=== PATIENT | female | born 1955 | race Caucasian/White ===

== ENCOUNTER → 2020-05-19 13:31 | Outpatient (BNVA) | payer MEDICARE, MEDICAID, SELFPAY | PROVIDERS: PCP Internal Medicine; Referring Provider Internal Medicine; Visit Provider Physician Assistant | DX: Z47.1 Aftercare following joint replacement surgery (principal); Z96.612 Presence of left artificial shoulder joint; Z48.02 Encounter for removal of sutures | CPT/HCPCS: 99212 ==

== ENCOUNTER 2020-06-12 12:04 | Outpatient (REF) | payer MEDICARE, MEDICAID, SELFPAY ==
[2020-06-12 12:44] LABS: MANUAL DIFF FLAG NO
[2020-06-12 12:47] LABS: Basophils Absolute Auto 0.1 X10*3/uL (0.0-0.2); Basophils Percent Auto 0.6 % (0-2); Eosinophils Absolute Auto 0.2 X10*3/uL (0.0-0.4); Eosinophils Percent Auto 2.8 % (0-4); Hematocrit 43.7 % (37-47); Hemoglobin 14.5 g/dl (12.0-16.0); Imm Gran Abs Auto 0.02 X10*3/uL (0.00-0.03); Imm Gran Pct Auto 0.3 % (0.0-0.4); Lymphocytes Absolute Auto 2.4 X10*3/uL (1.2-4.9); Lymphocytes Percent Auto 30.8 % (20-40); Mean Corpuscular HGB Conc 33.2 g/dl (31.0-35.0); Mean Corpuscular Hemoglobin 28.9 pg (27.0-33.0); Mean Corpuscular Volume 87.2 fL (80-98); Mean Platelet Volume 10.8 fL (9.4-12.3); Monocytes Absolute Auto 0.6 X10*3/uL (0.1-1.2); Neutrophils Absolute Auto 4.5 X10*3/uL (2.0-8.3); Neutrophils Percent Auto 57.5 % (45-73); Platelet Count 304 X10*3/uL (160-400); Red Blood Count 5.01 X10*6/uL (4.20-5.50); Red Cell Distribution Width 13.1 % (11.0-16.0); White Blood Count 7.9 X10*3/uL (4.8-10.8)
[2020-06-12 14:03] LABS: Anion Gap 13 (12-20); Blood Urea Nitrogen 15 mg/dL (9-16); Calcium 8.9 mg/dL (8.4-10.2); Carbon Dioxide 29 mmol/L (22-29); Chloride 102 mmol/L (96-108); Cholesterol 221 mg/dL; Estimated Glomerular Filt Rate > 60; Glucose Fasting 118 mg/dL (60-99); HDL Cholesterol 34 mg/dL; LDL Cholesterol Calculated 146 mg/dl; Potassium 4.5 mmol/l (3.3-5.1); Sodium 139 mmol/L (135-145); Triglycerides 208 mg/dL
== END 2020-06-12 12:05 | disposition home or self-care (01) ==
LOC: HO.LAB 12:04
PROVIDERS: Absent Provider Internal Medicine; PCP Internal Medicine; Visit Provider Nurse Practitioner Family
DX: E78.00 Pure hypercholesterolemia, unspecified (principal); Z96.612 Presence of left artificial shoulder joint; E78.5 Hyperlipidemia, unspecified
CPT/HCPCS: 36415; 80048; 80061; 85025

== ENCOUNTER 2020-06-22 11:18 | Outpatient (REF) | payer MEDICARE, MEDICAID, SELFPAY ==
--- NOTE | 2020-06-22 11:35 | XR_ITS ---
EXAMINATION: XR SHOULDER, LEFT CLINICAL INFORMATION: Left shoulder arthroplasty COMPARISON: Left shoulder x-rays TECHNIQUE: 2 views of the left shoulder FINDINGS: Postop changes related to left shoulder arthroplasty. Components in usual position. No periprosthetic fracture or suspicious area of lucency. Mild arthrosis of the left shoulder XR/XR shoulder LT min 2V IMPRESSION: Left total shoulder arthroplasty without complication
== END 2020-06-22 11:19 | disposition home or self-care (01) ==
LOC: HO.HOSX 11:18
PROVIDERS: PCP Internal Medicine; Referring Provider Internal Medicine; Visit Provider Orthopaedic Surgery
DX: Z96.612 Presence of left artificial shoulder joint (principal)
CPT/HCPCS: 73030; 99212

== ENCOUNTER → 2020-08-07 13:08 | Outpatient (BNVA) | payer MEDICARE, MEDICAID, SELFPAY | PROVIDERS: PCP Internal Medicine; Visit Provider Orthopaedic Surgery | DX: Z76.89 Persons encountering health services in other specified circumstances (principal) | CPT/HCPCS: 99212 ==

== ENCOUNTER 2020-08-07 14:08 | Outpatient (REF) | payer MEDICARE, MEDICAID, SELFPAY | END 2020-08-07 14:09 | disposition home or self-care (01) | LOC: HO.LAB 14:08 | PROVIDERS: Visit Provider Internal Medicine | DX: Z20.828 Contact with and (suspected) exposure to other viral communicable diseases (principal) | CPT/HCPCS: 99212; C9803; U0003 ==

== ENCOUNTER 2020-10-24 16:00 | Outpatient (RCR) | payer MEDICARE, OTHER, MEDICAID, SELFPAY ==
--- NOTE | 2020-06-05 16:45 | MHC.PT.EP ---
[facility] [place] Office [place] Office [place] Office [address] Tiffanie Banks [address] [phone] F: [phone] F: [phone] F: [phone] F: [phone] Physical Therapy Plan of Care Date of Evaluation: 06/05/20 Date of Surgery: 05/03/20 Diagnosis: presence of left artificial shoulder joint. Assessment: This is a 65 y/o female referred to skilled PT services s/p left total shoulder replacement by Dr. Mohr on 05/03/20. On her evaluation date today, she is 5 weeks and 6 days post op. Assessment reveals decreased PROM, AAROM, and AROM of the left shoulder joint, impaired strength, postural deficits, impaired GHJ rhythm, tissue tension, and pain. Related functional limitations include: difficulty dressing, reaching, lifting, carrying, cooking, and performing house cleaning tasks. Pt will highly benefit from skilled PT services 2x/week for 6-8 weeks in order to reduce impairments, improve function, and implement a comprehensive HEP. Frequency and Duration: The patient will be seen 2x/week for 8 weeks, minimum of 38 minutes. Short Term Goals: -In 3 weeks, Pt to improve PROM of the left shoulder joint in all impaired directions by at least 20 degrees. -In 4 weeks, Pt to demonstrate the ability at minimum 50% normal AROM of the L shoulder joint. [address] Goals: -In 6 weeks, Pt to demonstrate the ability to reach for and retrieve a weighted object from a shelf above eye level. -In 8 weeks, Pt will demonstrate I w/ HEP. -In 8 weeks, Pt to improve SPADI score by at least 13 points. Treatment Plan: Modalities to reduce pain, spasms and effusion. Manual therapy to restore motion and function. Therapeutic exercise to improve strength and flexibility. Neuromuscular re-education for posture and balance. Therapeutic activities to return to functional activities of daily living. Please sign and return to therapist. Thank you for your referral.
--- NOTE | 2020-10-24 17:04 | MHC.PT.DC ---
[facility] [place] Office [place] Office [place] Office [address] Tiffanie Banks [address] [phone] F: [phone] F: [phone] F: [phone] F: [phone] Physical Therapy Discharge Report Diagnosis: presence of left artificial shoulder joint. Date of Surgery: 05/03/20 Date of Evaluation: 06/05/20 Date of Discharge: Treatments to Date: 24 Cancellations to Date: 0 No Shows to Date: 0 Discharge Status: Achieved Goals Improved Function Independent with HEP Discharge Summary: Pt has improved and demonstrates I w/ HEP s/p L total shoulder replacement. SPADI: 62/130. Although, she reports no specific functional limitations @ home w/ any of her activities of daily living. Electronically signed by: Lia Peoples PT, DPT Please sign and return to therapist. Thank you for your referral.
== END 2020-10-24 17:05 | disposition other institution (70) ==
LOC: HO.PT 16:00
PROVIDERS: Visit Provider Physician Assistant
DX: Z47.1 Aftercare following joint replacement surgery (principal); Z96.612 Presence of left artificial shoulder joint
CPT/HCPCS: 97014; 97110; 97140; 97161; 97530

== ENCOUNTER → 2020-12-11 13:41 | Outpatient (BNVA) | payer OTHER, SELFPAY | PROVIDERS: Visit Provider Orthopaedic Surgery | DX: Z96.612 Presence of left artificial shoulder joint (principal) | CPT/HCPCS: 99212 ==

== ENCOUNTER → 2020-12-29 14:19 | Outpatient (BNVA) | payer OTHER, SELFPAY | PROVIDERS: PCP Internal Medicine; Visit Provider Nurse Practitioner Family | DX: M47.27 Other spondylosis with radiculopathy, lumbosacral region (principal) | CPT/HCPCS: 99202 ==

== ENCOUNTER 2021-01-26 14:29 | Outpatient (REF) | payer OTHER, SELFPAY ==
--- NOTE | ~2021-01-26 | MR_ITS ---
EXAMINATION: MR LUMBAR SPINE WITHOUT CONTRAST CLINICAL INFORMATION: Other spondylosis with radiculopathy, lumbosacral region. COMPARISON: None TECHNIQUE: MRI of the lumbar spine was obtained using routine sequences without contrast. FINDINGS: The lumbar vertebral bodies maintain normal height. There is minimal retrolisthesis of L3 on L4 with associated severe disc height loss. Additional severe disc height loss is seen at L5-S1. Edema seen at the anterior aspect of L2 and at the opposing endplates of L2-L3. The distal spinal cord appears normal. The conus medullaris terminates normally at the L1 level. The visualized paraspinal muscles and intra-abdominal and pelvic contents are within normal limits. SPINAL LEVELS: L1-L2: Disc bulging with left foraminal protrusion resulting in mild mass effect on the extraforaminal left L1 nerve root segment. No spinal canal stenosis. L2-L3: Disc bulging with epidural lipomatosis and facet arthropathy resulting in mild spinal canal stenosis and left subarticular stenosis with mild compression of the traversing left L3 nerve root. Left and right foraminal protrusions with resultant compression on the extraforaminal left L2 nerve root segment. L3-L4: Disc bulging, epidural lipomatosis, ligamentum flavum infolding, and facet arthropathy resulting in thecal sac compression with effacement of the subarachnoid space. Right foraminal protrusion results in moderate compression of the exiting right L3 nerve root. Left neural foramen is mildly narrowed but without foraminal nerve root compression. L4-L5: Disc bulging with left foraminal extrusion resulting in significant compression of the exiting left L4 nerve root. Diffuse disc bulging with extension to the right neural foramen results in mild compression of the exiting right L4 nerve root. Disc bulging combination with ligamentum flavum infolding, facet arthropathy, and epidural lipomatosis results in severe spinal canal stenosis with thecal sac compression and asymmetric left subarticular stenosis with compression of the traversing left L5 nerve root. L5-S1: Disc bulging with severe facet arthropathy and central protrusion results in mild to moderate spinal canal stenosis with bilateral traversing L5 nerve root compression. Moderate neural foraminal stenosis with compression of the exiting left more than right L5 nerve roots. MR/MR lumbar spine wo con IMPRESSION: Multilevel degenerative spondylotic changes resulting in varying degrees of spinal canal, neural foraminal, and subarticular stenosis. At L3-L4 there is thecal sac compression with effacement of the subarachnoid space partly related to epidural lipomatosis. Moderate compression of the exiting right L3 nerve root. At L4-L5 there is severe spinal canal stenosis with thecal sac compression and traversing L5 nerve root compression. Left foraminal extrusion results in significant compression of the exiting left L4 nerve root. Additional foraminal and subarticular nerve root compression is detailed above.
== END 2021-01-26 14:30 | disposition home or self-care (01) ==
LOC: HO.MRI 14:29
PROVIDERS: Visit Provider Anesthesiology
DX: M47.27 Other spondylosis with radiculopathy, lumbosacral region (principal)
CPT/HCPCS: 72148

== ENCOUNTER 2021-03-20 11:07 | Outpatient (REF) | payer OTHER, SELFPAY ==
[2021-03-20 12:27] LABS: Alanine Aminotransferase 25 U/L (0-31); Albumin Level 3.9 g/dL (3.5-5.0); Alkaline Phosphatase 112 U/L (39-117); Anion Gap 11 (12-20); Aspartate Amino Transferase 19 U/L (5-31); Bilirubin Total 0.3 mg/dL (0.0-1.0); Blood Urea Nitrogen 15 mg/dL (9-16); Calcium 9.4 mg/dL (8.4-10.2); Carbon Dioxide 29 mmol/L (22-29); Chloride 104 mmol/L (96-108); Estimated Glomerular Filt Rate > 60; Glucose Fasting 139 mg/dL (60-99); Potassium 4.4 mmol/L (3.3-5.1); Sodium 140 mmol/L (135-145); Total Protein 7.4 g/dL (6.5-8.0)
[2021-03-20 12:29] LABS: TSH reflex Free T4 1.96 uIU/mL (0.32-4.0)
== END 2021-03-20 11:08 | disposition home or self-care (01) ==
LOC: HO.LAB 11:07
PROVIDERS: PCP Internal Medicine; Visit Provider Nurse Practitioner Family
DX: Z13.1 Encounter for screening for diabetes mellitus (principal); E03.9 Hypothyroidism, unspecified
CPT/HCPCS: 36415; 80053; 84443

== ENCOUNTER 2021-04-30 13:02 | Outpatient (REF) | payer OTHER, SELFPAY ==
[2021-05-01 04:50] LABS: CT PCR NOT DETECTED (Not Detect.); NG PCR NOT DETECTED (Not Detect.)
[2021-05-01 08:55] LABS: BV Int Neg Control Negative (Negative); BV Int Pos Control Positive (Positive)
[2021-05-03 17:43] LABS: HPV mRNA E6/E7 rflx Not Detected (Not Detected)
== END 2021-04-30 13:03 | disposition home or self-care (01) ==
LOC: HO.LAB 13:02
PROVIDERS: PCP Internal Medicine; Visit Provider Advanced Practice Midwife
DX: Z01.411 Encounter for gynecological examination (general) (routine) with abnormal findings (principal); Z11.51 Encounter for screening for human papillomavirus (HPV); Z11.3 Encounter for screening for infections with a predominantly sexual mode of transmission; Z20.2 Contact with and (suspected) exposure to infections with a predominantly sexual mode of transmission; N89.8 Other specified noninflammatory disorders of vagina
CPT/HCPCS: 87480; 87491; 87510; 87591; 87624; 87660; 88142

== ENCOUNTER 2021-05-10 12:17 | Outpatient (REF) | payer OTHER, SELFPAY ==
--- NOTE | ~2021-05-10 | XR_ITS ---
EXAMINATION: XR SHOULDER, LEFT CLINICAL INFORMATION: Pain. COMPARISON: Left shoulder radiographs dated 06/22/2020. TECHNIQUE: AP internal rotation, AP external rotation, and axillary views of the left shoulder. FINDINGS: Left shoulder arthroplasty. No acute hardware or osseous fracture. No perihardware lucency to suggest loosening or infection. Adjacent surgical clips. No radiopaque foreign body. No abnormal soft tissue calcification. XR/XR shoulder LT min 2V IMPRESSION: Left shoulder arthroplasty without evidence of hardware complication.
== END 2021-05-10 12:18 | disposition home or self-care (01) ==
LOC: HO.HOSX 12:17
PROVIDERS: Visit Provider Orthopaedic Surgery
DX: Z47.1 Aftercare following joint replacement surgery (principal); Z96.612 Presence of left artificial shoulder joint
CPT/HCPCS: 73030; 99212

== ENCOUNTER 2021-06-05 12:55 | Outpatient (REF) | payer OTHER, SELFPAY ==
--- NOTE | ~2021-06-05 | MM_ITS ---
EXAMINATION: MM SCREENING DIGITAL BREAST TOMOSYNTHESIS, BILATERAL CLINICAL INFORMATION: Screening. Asymptomatic. The lifetime risk of breast cancer based on the Tyrer-Cuzick Model is 4.9%. COMPARISON: Mammography: None. TECHNIQUE: Digital breast tomosynthesis is performed in both the craniocaudal and mediolateral oblique views along with computer-aided detection (CAD). Synthesized 2D images are generated from the tomosynthesis. FINDINGS: There are scattered areas of fibroglandular density (ACR BI-RADS breast composition Category b). There are bilateral groupings of calcifications one of which within the inferior aspect of the right breast has been biopsied previously in [place] where old films are at this time. Some of the calcifications are coarse but others are indeterminate in nature and therefore spot magnification films of both breasts are recommended unless old films can be obtained. No suspicious dominant mass is identified. MM/MM tomosynthesis screening BI IMPRESSION: Multiplicity and bilaterality of indeterminate calcifications with no old studies available for comparison at this time. If old films can be obtained and compared that would be helpful. If previous studies are not available for comparison, then recommend callback for spot magnification views of both breasts. ASSESSMENT: BI-RADS 0: Incomplete - Need Additional Imaging Evaluation RECOMMENDATION: 1. Additional views of the bilateral breasts. 2. Targeted ultrasound if warranted after review of the additional views. 3. Radiology department staff will contact the patient for additional imaging. This patient's information was entered into a reminder system with a target due date for their next mammogram.
--- NOTE | ~2021-06-05 | MM_ITS ---
EXAMINATION: BONE DENSITOMETRY CLINICAL INDICATION: Asymptomatic menopausal state. COMPARISON: None (current study represents initial baseline exam). TECHNIQUE: Using a [employer] DXA System (software version: 13.1) manufactured by [employer], dual-energy x-ray absorptiometry was performed of the lumbar spine and left hip. The images are of good technical quality. Summary results are attached. FINDINGS: AP SPINE L1-L2 (excluding L3 and L4): The data of L1-L4 has been changed to exclude the L3 and L4 vertebral bodies, because degenerative changes at these levels may cause overestimation of lumbar spine density. BMD 1.165 g/cm2, Z-score 0.6, T-score 0.0, normal. LEFT FEMUR, NECK: BMD 0.673 g/cm2, Z-score -1.8, T-score -2.6, osteoporosis. LEFT FEMUR, TOTAL: BMD 0.833 g/cm2, Z-score -0.9, T-score -1.4, osteopenia. IDENTIFIED RISK FACTORS: Menopause, hysterectomy, bilateral oophorectomy. HISTORY OF FRACTURE: None listed. MEDICATIONS: Vitamin D. MM/XR DEXA axial skeleton IMPRESSION: 1. DIAGNOSIS: Osteoporosis based on the lowest T-score value of -2.6 in the femoral neck applying World Health Organization criteria. 2. 2. 10-YEAR FRACTURE RISK PREDICTION, FRAX: According to the guidelines, FRAX calculation should only be performed on patients in the osteopenia bone density category. Therefore, FRAX was not performed on this patient. 3. Treatment Recommendations: NOF guidelines recommend consideration for treatment in postmenopausal women and men age 50 and older presenting with the following: -A hip or vertebral (clinical or morphometric) fracture. -T-score less than or equal to -2.5 at the femoral neck or spine after appropriate evaluation to exclude secondary causes. -Low bone mass at the hip or spine and a 10-year fracture probability by FRAX of greater than or equal to 3% for hip fracture or greater than or equal to 20% for major osteoporotic fracture based on the [place] adapted WHO algorithm. 4. Other Recommendations: All treatment decisions require clinical judgment and consideration of individual patient factors, including patient preferences, comorbidities, previous drug use, risk factors not captured in the FRAX model (e.g. frailty, falls, vitamin D deficiency, increased bone turnover, interval significant decline in bone density) and possible under or overestimation of fracture risk by FRAX. Additional medical evaluation for secondary cause of low bone mineral density may be appropriate. FUTURE SCAN RECOMMENDATION: People with diagnosed cases of osteoporosis or at high risk for fracture should have regular bone mineral density tests. For patients eligible for Medicare, routine testing is allowed once every 2 years. The testing frequency can be increased to one year for patients who have rapidly progressing disease, those who are receiving or discontinuing medical therapy to restore bone mass, or have additional risk factors.
== END 2021-06-05 12:56 | disposition home or self-care (01) ==
LOC: HO.MAMMO 12:55
PROVIDERS: Visit Provider Nurse Practitioner Family
DX: Z12.31 Encounter for screening mammogram for malignant neoplasm of breast (principal); Z13.820 Encounter for screening for osteoporosis; M81.0 Age-related osteoporosis without current pathological fracture; Z78.0 Asymptomatic menopausal state; Z79.899 Other long term (current) drug therapy
CPT/HCPCS: 77063; 77067; 77080

== ENCOUNTER 2021-06-12 10:14 | Outpatient (REF) | payer OTHER, SELFPAY ==
--- NOTE | ~2021-06-12 | MM_ITS ---
EXAMINATION: MM DIAGNOSTIC DIGITAL MAMMOGRAPHY, BILATERAL CLINICAL INFORMATION: Recall from screening for bilateral calcifications of uncertain chronicity (prior outside mammography from [place] unavailable). Age 66. TC score 5%. No known family history breast cancer. COMPARISON: Mammography: 06/05/2021 (new baseline). TECHNIQUE: Digital mammography is performed in the following views: Magnification right CC, magnification right ML x2, magnification left CC x2, magnification left ML. FINDINGS: There are scattered areas of fibroglandular density (ACR BI-RADS breast composition Category b). There are similar appearing groups of bilateral calcifications which may be related to fibroadenomatous changes. Left breast has grouped coarse benign calcifications mid upper outer quadrant with some fine calcifications immediately anterior and posterior. There are also some benign relatively coarse calcifications mid medial left breast. Right breast has grouped relatively coarse calcifications mid 6:00 position. Biopsy clip marker present in this area. There are some other benign-appearing coarse calcifications in the anterior mid upper right breast. Results are provided to the patient and her daughter at time of visit, using an medical data analyst. The bilateral calcifications are probably benign and of uncertain chronicity. If prior outside mammography is able to be retrieved, we will be able to make comparison in an addendum report. Otherwise, management plan is for short interval six-month follow-up bilateral diagnostic mammography to include magnification views of both breasts. MM/MM added views BI IMPRESSION: Probable benign calcifications bilateral breasts, possibly fibroadenomatous changes, of unknown chronicity. ASSESSMENT: BI-RADS 3: Probably Benign RECOMMENDATION: Diagnostic bilateral mammography in 6 months. This patient's information was entered into a reminder system with a target due date for their next mammogram.
== END 2021-06-12 10:15 | disposition home or self-care (01) ==
LOC: HO.MAMMO 10:14
PROVIDERS: Visit Provider Internal Medicine
DX: R92.1 Mammographic calcification found on diagnostic imaging of breast (principal)
CPT/HCPCS: 77066

== ENCOUNTER 2021-07-22 14:49 | Emergency (ER) | payer OTHER, SELFPAY ==
[2021-07-22 14:57] VITALS: BP 155/71; BP 167/93; PULSE 89; PULSE 92; RESP 22; TEMP 36.9; O2SAT 97; O2SAT 98; BMI 40.6
--- NOTE | 2021-07-22 15:13 | ED.DIZZY ---
HPI - Dizziness General Chief Complaint: Dizziness <Jed Watkins MD - Last Filed: 07/22/21 16:19> Stated Complaint: cold and dizzy <Jed Watkins MD - Last Filed: 07/22/21 16:19> Time Seen by Provider: 07/22/21 15:12 <Jed Watkins MD - Last Filed: 07/22/21 16:19> Source: patient <Jed Watkins MD - Last Filed: 07/22/21 16:19> Mode of arrival: ambulatory <Jed Watkins MD - Last Filed: 07/22/21 16:19> Limitations: no limitations <Jed Watkins MD - Last Filed: 07/22/21 16:19> History of Present Illness HPI Narrative: 2 days of dizziness and palpitations. Patient feeling cold and nervous, has a lot of bleching. patient had lumbar surgery 07/04, she went to rehab for 4 days. patient feels more weak like when her sugar drops and she get nervous and shakey. <Jed Watkins MD - Last Filed: 07/22/21 16:19> MD elicited complaint: other (weakness) <Jed Watkins MD - Last Filed: 07/22/21 16:19> Onset (ago): day(s) <Jed Watkins MD - Last Filed: 07/22/21 16:19> Timing: sudden onset <Jed Watkins MD - Last Filed: 07/22/21 16:19> Severity: mild <Jed Watkins MD - Last Filed: 07/22/21 16:19> Description: other (weakness) <Jed Watkins MD - Last Filed: 07/22/21 16:19> Associated symptoms: palpatations <Jed Watkins MD - Last Filed: 07/22/21 16:19> Related Data Home Medications: Previous Rx's Medication Instructions Recorded cholecalciferol (vitamin D3) 25 25 mcg PO DAILY #90 cap 04/12/21 mcg (1,000 unit) capsule gabapentin 800 mg tablet 800 mg PO TID #90 tab 04/12/21 (Neurontin) simvastatin 10 mg tablet 10 mg PO DAILY #90 tab 04/12/21 metronidazole 500 mg tablet 500 mg PO BID 7 Days #14 tab 05/02/21 (Flagyl) levothyroxine 75 mcg tablet 75 mcg PO QAM #90 tab 07/14/21 lisinopril 20 mg tablet 20 mg PO DAILY #90 tab 07/14/21 <Jed Watkins MD - Last Filed: 07/22/21 16:19> Allergies/Adverse Reactions: Allergies Allergy/AdvReac Type Severity Reaction Status Date / Time No Known Allergies Allergy Verified 07/22/21 14:57 <Jed Watkins MD - Last Filed: 07/22/21 16:19> Review of Systems Constitutional: Constitutional: Reports no additional constitutional complaints <Jed Watkins MD - Last Filed: 07/22/21 16:19> Eyes: Eyes: Reports no additional eye complaints <Jed Watkins MD - Last Filed: 07/22/21 16:19> ENT: Denies dizziness <Jed Watkins MD - Last Filed: 07/22/21 16:19> Cardiovascular: Cardiovascular: Reports no additional cardiovascular complaints <Jed Watkins MD - Last Filed: 07/22/21 16:19> Respiratory: Respiratory: Reports as per HPI <Jed Watkins MD - Last Filed: 07/22/21 16:19> Gastrointestinal: Gastrointestinal: Reports no additional gastrointestinal complaints <Jed Watkins MD - Last Filed: 07/22/21 16:19> Genitourinary: Genitourinary: Reports no additional female genitourinary complaints <Jed Watkins MD - Last Filed: 07/22/21 16:19> Musculoskeletal: Musculoskeletal: Reports no additional musculoskeletal complaints <Jed Watkins MD - Last Filed: 07/22/21 16:19> Integumentary/Breasts: Skin/Breast: Denies rash <Jed Watkins MD - Last Filed: 07/22/21 16:19> Neurologic: Reports system reviewed and no additional complaints, except as documented, Denies dizziness and Denies Sensory deficit (Neuro) <Jed Watkins MD - Last Filed: 07/22/21 16:19> Psychiatric: Psychiatric: Denies anxiety <Jed Watkins MD - Last Filed: 07/22/21 16:19> [facility] Past Medical History Medical History: Medical History (Updated 07/23/21 @ 00:02 by Cecilio Oliveira) Eye exam, routine High cholesterol Hospital discharge follow-up Hypertension Hypothyroidism Obesity Post-menopausal Screening for breast cancer Screening for colon cancer Screening for diabetes mellitus <Jed Watkins MD - Last Filed: 07/22/21 16:19> Surgical History: Surgical History History of section History of colonoscopy History of hysterectomy History of 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 Mother No problems noted. Sister Glaucoma <Jed Watkins MD - Last Filed: 07/22/21 16:19> Social History Social History: Social History Housing: Apartment Alcohol intake: never Patient Tobacco Use Status: Never used Tobacco e-Cigarette/Vaping Use: Never Used Second Hand Smoke Exposure: No Advance Directives: No Advance Directives Information Provided: No service: No Current occupational status: retired Cognitive needs: No Hearing needs: No Vision needs: No <Jed Watkins MD - Last Filed: 07/22/21 16:19> Physical Exam Vital Signs: Vital Signs: Last Vital Signs Temp 98.4 F 07/22/21 14:57 Pulse 81 07/22/21 19:51 Resp 16 07/22/21 19:51 BP 150/76 H 07/22/21 19:51 Pulse Ox 99 07/22/21 18:00 BMI result Body Mass Index 40.6 <Jed Watkins MD - Last Filed: 07/22/21 16:19> Vital Signs: Last Vital Signs Temp 98.4 F 07/22/21 14:57 Pulse 81 07/22/21 19:51 Resp 16 07/22/21 19:51 BP 150/76 H 07/22/21 19:51 Pulse Ox 99 07/22/21 18:00 BMI result Body Mass Index 40.6 <Jose Gongora MD - Last Filed: 07/23/21 01:33> Neuro: Sensory Exam: No Sensory deficit (Neuro) <Jed Watkins MD - Last Filed: 07/22/21 16:19> Course Reevaluation(s) Reevaluation #1: patients first troponin came back high will have to obtain a 3 hour troponin <Jed Watkins MD - Last Filed: 07/22/21 16:19> Time: 16:19 <Jed Watkins MD - Last Filed: 07/22/21 16:19> MDM - Dizziness Lab Data Result diagrams: : 07/22/21 15:42 07/22/21 15:42 <Jed Watkins MD - Last Filed: 07/22/21 16:19> Labs: Lab Results 07/22/21 07/22/21 07/22/21 Range/Units 15:42 15:42 15:42 WBC 9.4 (4.8-10.8) X10*3/uL RBC 4.20 (4.20-5.50) X10*6/uL Hgb 12.0 (12.0-16.0) g/dl Hct 36.9 L (37.0-47.0) % MCV 87.9 (80.0-98.0) fL MCH 28.6 (27.0-33.0) pg MCHC 32.5 (31.0-35.0) g/dl RDW 14.1 (11.0-16.0) % Plt Count 454 H (160-400) X10*3/uL MPV 10.6 (9.4-12.3) fL Immature Gran % (Auto) 0.4 (0.0-0.4) % Neut % (Auto) 71.7 (45-73) % Lymph % (Auto) 17.9 L (20-40) % [place] % (Auto) 9.0 (2-11) % Eos % (Auto) 0.4 (0-4) % Baso % (Auto) 0.6 (0-2) % Lymph # (Auto) 1.7 (1.2-4.9) X10*3/uL [place] # (Auto) 0.9 (0.1-1.2) X10*3/uL Eos # (Auto) 0.0 (0.0-0.4) X10*3/uL Baso # (Auto) 0.1 (0.0-0.2) X10*3/uL Abs Immat Gran (auto) 0.04 H (0.00-0.03) X10*3/uL Absolute Neuts (auto) 6.7 (2.0-8.3) x10*3/uL Absolute Nucleated RBC 0.000 (0.0-0.012) X10*3/uL Nucleated RBC % (auto) 0.0 (0.0-0.2) /100WBC Sodium 137 (135-145) mmol/L Potassium 4.1 (3.3-5.1) mmol/L Chloride 102 (96-108) mmol/L Carbon Dioxide 25 (22-29) mmol/L Anion Gap 14 (12-20) BUN 14 (9-16) mg/dL Creatinine 0.72 (0.5-1.4) mg/dL Estim Creat Clear Calc 81.0 Estimated GFR > 60 Random Glucose 165 H (60-115) mg/dL Calcium 9.9 (8.4-10.2) mg/dL Troponin I High Sens 21.1 H (<3.5-17.0) ng/L Urine Color Urine Appearance Urine pH (5.0-8.0) Ur Specific [place] (1.005-1.025) Urine Protein (NEG-TRACE) MG/DL Urine Glucose (UA) (NEG) MG/DL Urine Ketones (NEG) MG/DL Urine Blood (NEG) Urine Nitrite (NEG) Ur Leukocyte Esterase (NEG) 07/22/21 07/22/21 Range/Units 15:43 18:04 WBC (4.8-10.8) X10*3/uL RBC (4.20-5.50) X10*6/uL Hgb (12.0-16.0) g/dl Hct (37.0-47.0) % MCV (80.0-98.0) fL MCH (27.0-33.0) pg MCHC (31.0-35.0) g/dl RDW (11.0-16.0) % Plt Count (160-400) X10*3/uL MPV (9.4-12.3) fL Immature Gran % (Auto) (0.0-0.4) % Neut % (Auto) (45-73) % Lymph % (Auto) (20-40) % [place] % (Auto) (2-11) % Eos % (Auto) (0-4) % Baso % (Auto) (0-2) % Lymph # (Auto) (1.2-4.9) X10*3/uL [place] # (Auto) (0.1-1.2) X10*3/uL Eos # (Auto) (0.0-0.4) X10*3/uL Baso # (Auto) (0.0-0.2) X10*3/uL Abs Immat Gran (auto) (0.00-0.03) X10*3/uL Absolute Neuts (auto) (2.0-8.3) x10*3/uL Absolute Nucleated RBC (0.0-0.012) X10*3/uL Nucleated RBC % (auto) (0.0-0.2) /100WBC Sodium (135-145) mmol/L Potassium (3.3-5.1) mmol/L Chloride (96-108) mmol/L Carbon Dioxide (22-29) mmol/L Anion Gap (12-20) BUN (9-16) mg/dL Creatinine (0.5-1.4) mg/dL Estim Creat Clear Calc Estimated GFR Random Glucose (60-115) mg/dL Calcium (8.4-10.2) mg/dL Troponin I High Sens 18.4 H (<3.5-17.0) ng/L Urine Color YELLOW Urine Appearance HAZY Urine pH 6.0 (5.0-8.0) Ur Specific [place] 1.025 (1.005-1.025) Urine Protein NEG (NEG-TRACE) MG/DL Urine Glucose (UA) NEG (NEG) MG/DL Urine Ketones NEG (NEG) MG/DL Urine Blood NEG (NEG) Urine Nitrite NEG (NEG) Ur Leukocyte Esterase NEG (NEG) <Jed Watkins MD - Last Filed: 07/22/21 16:19> Lab Results 07/22/21 07/22/21 07/22/21 Range/Units 15:42 15:42 15:42 WBC 9.4 (4.8-10.8) X10*3/uL RBC 4.20 (4.20-5.50) X10*6/uL Hgb 12.0 (12.0-16.0) g/dl Hct 36.9 L (37.0-47.0) % MCV 87.9 (80.0-98.0) fL MCH 28.6 (27.0-33.0) pg MCHC 32.5 (31.0-35.0) g/dl RDW 14.1 (11.0-16.0) % Plt Count 454 H (160-400) X10*3/uL MPV 10.6 (9.4-12.3) fL Immature Gran % (Auto) 0.4 (0.0-0.4) % Neut % (Auto) 71.7 (45-73) % Lymph % (Auto) 17.9 L (20-40) % [place] % (Auto) 9.0 (2-11) % Eos % (Auto) 0.4 (0-4) % Baso % (Auto) 0.6 (0-2) % Lymph # (Auto) 1.7 (1.2-4.9) X10*3/uL [place] # (Auto) 0.9 (0.1-1.2) X10*3/uL Eos # (Auto) 0.0 (0.0-0.4) X10*3/uL Baso # (Auto) 0.1 (0.0-0.2) X10*3/uL Abs Immat Gran (auto) 0.04 H (0.00-0.03) X10*3/uL Absolute Neuts (auto) 6.7 (2.0-8.3) x10*3/uL Absolute Nucleated RBC 0.000 (0.0-0.012) X10*3/uL Nucleated RBC % (auto) 0.0 (0.0-0.2) /100WBC Sodium 137 (135-145) mmol/L Potassium 4.1 (3.3-5.1) mmol/L Chloride 102 (96-108) mmol/L Carbon Dioxide 25 (22-29) mmol/L Anion Gap 14 (12-20) BUN 14 (9-16) mg/dL Creatinine 0.72 (0.5-1.4) mg/dL Estim Creat Clear Calc 81.0 Estimated GFR > 60 Random Glucose 165 H (60-115) mg/dL Calcium 9.9 (8.4-10.2) mg/dL Troponin I High Sens 21.1 H (<3.5-17.0) ng/L Urine Color Urine Appearance Urine pH (5.0-8.0) Ur Specific [place] (1.005-1.025) Urine Protein (NEG-TRACE) MG/DL Urine Glucose (UA) (NEG) MG/DL Urine Ketones (NEG) MG/DL Urine Blood (NEG) Urine Nitrite (NEG) Ur Leukocyte Esterase (NEG) 07/22/21 07/22/21 Range/Units 15:43 18:04 WBC (4.8-10.8) X10*3/uL RBC (4.20-5.50) X10*6/uL Hgb (12.0-16.0) g/dl Hct (37.0-47.0) % MCV (80.0-98.0) fL MCH (27.0-33.0) pg MCHC (31.0-35.0) g/dl RDW (11.0-16.0) % Plt Count (160-400) X10*3/uL MPV (9.4-12.3) fL Immature Gran % (Auto) (0.0-0.4) % Neut % (Auto) (45-73) % Lymph % (Auto) (20-40) % [place] % (Auto) (2-11) % Eos % (Auto) (0-4) % Baso % (Auto) (0-2) % Lymph # (Auto) (1.2-4.9) X10*3/uL [place] # (Auto) (0.1-1.2) X10*3/uL Eos # (Auto) (0.0-0.4) X10*3/uL Baso # (Auto) (0.0-0.2) X10*3/uL Abs Immat Gran (auto) (0.00-0.03) X10*3/uL Absolute Neuts (auto) (2.0-8.3) x10*3/uL Absolute Nucleated RBC (0.0-0.012) X10*3/uL Nucleated RBC % (auto) (0.0-0.2) /100WBC Sodium (135-145) mmol/L Potassium (3.3-5.1) mmol/L Chloride (96-108) mmol/L Carbon Dioxide (22-29) mmol/L Anion Gap (12-20) BUN (9-16) mg/dL Creatinine (0.5-1.4) mg/dL Estim Creat Clear Calc Estimated GFR Random Glucose (60-115) mg/dL Calcium (8.4-10.2) mg/dL Troponin I High Sens 18.4 H (<3.5-17.0) ng/L Urine Color YELLOW Urine Appearance HAZY Urine pH 6.0 (5.0-8.0) Ur Specific [place] 1.025 (1.005-1.025) Urine Protein NEG (NEG-TRACE) MG/DL Urine Glucose (UA) NEG (NEG) MG/DL Urine Ketones NEG (NEG) MG/DL Urine Blood NEG (NEG) Urine Nitrite NEG (NEG) Ur Leukocyte Esterase NEG (NEG) <Jose Gongora MD - Last Filed: 07/23/21 01:33> ECG Data Attestation: I personally reviewed and interpreted this ECG as follows: <Jed Watkins MD - Last Filed: 07/22/21 16:19> Interpretation: sinus [address] or twave changes <Jed Watkins MD - Last Filed: 07/22/21 16:19> Discharge Plan Discharge Clinical Impression: Palpitations <Jed Watkins MD - Last Filed: 07/22/21 16:19> Patient Disposition: Home, Self-Care <Jed Watkins MD - Last Filed: 07/22/21 16:19> Instructions: Heart Palpitations (ED) <Jed Watkins MD - Last Filed: 07/22/21 16:19> Additional Instructions: Continue your medications and follow-up with your primary care doctor for further monitoring including Holter monitoring for heart <Jed Watkins MD - Last Filed: 07/22/21 16:19> Prescriptions: No Action metronidazole [Flagyl] 500 mg tablet 500 mg PO BID 7 Days Qty: 14 RF: 0 levothyroxine 75 mcg tablet 75 mcg PO QAM Qty: 90 RF: 1 lisinopril 20 mg tablet 20 mg PO DAILY Qty: 90 RF: 1 cholecalciferol (vitamin D3) 25 mcg (1,000 unit) capsule 25 mcg PO DAILY Qty: 90 RF: 0 gabapentin [Neurontin] 800 mg tablet 800 mg PO TID Qty: 90 RF: 8 simvastatin 10 mg tablet 10 mg PO DAILY Qty: 90 RF: 8 <Jed Watkins MD - Last Filed: 07/22/21 16:19> Interventions: ED Discharge Assessment Last Done: 07/22/21 19:51 <Jed Watkins MD - Last Filed: 07/22/21 16:19> Discharge Date/Time: 07/22/21 19:53 <Jed Watkins MD - Last Filed: 07/22/21 16:19> Print Language: Welsh <Jed Watkins MD - Last Filed: 07/22/21 16:19>
--- NOTE | 2021-07-22 15:14 | ECG_ITS ---
Test Reason : DIZZINESS Blood Pressure : / mmHG Vent. Rate : 087 BPM Atrial Rate : 087 BPM P-R Int : 144 ms QRS Dur : 074 ms QT Int : 364 ms P-R-T Axes : 054 020 067 degrees QTc Int : 438 ms Normal sinus rhythm Normal ECG When compared with ECG of 28-MAR-2020 12:15, No significant change was found Referred By: Jed Watkins Electronically Signed By:NAVI FATIMA MD
--- NOTE | 2021-07-22 15:14 | PC.NURSE ---
Via EMS from home with complaints of weakness and anxiey decribed as palpations along with chills x 2 days. Denies any CP, N/V/D or recent sick contact. Pt is A&Ox3, NSR in the 80's on the monitor. VSS, LCA, neuros intact. Changed into hospital gown, skin intact, abd soft, non tender +BS x 4. Also says she has had a gassy stomach, had recent lumbar surgery at [facility] on 07/04 and has been taking gabapentin as needed for that. Plan for labs, EKG and urine sample. Call renteria within reach, will coninue to monitor.
[2021-07-22 15:49] LABS: Appearance Urine HAZY; Color Urine YELLOW; Glucose Urine UA NEG (NEG); Leukocyte Esterase Urine NEG (NEG); Nitrite Urine NEG (NEG); Specific Gravity - Urine 1.025 (1.005-1.025); Urine Blood NEG (NEG); Urine Ketones NEG (NEG); Urine Protein NEG (NEG-TRACE)
[2021-07-22 15:49] LABS: MANUAL DIFF FLAG NO
[2021-07-22 15:55] LABS: Basophils Absolute Auto 0.1 X10*3/uL (0.0-0.2); Basophils Percent Auto 0.6 % (0-2); Eosinophils Percent Auto 0.4 % (0-4); Hematocrit 36.9 % (37.0-47.0); Imm Gran Abs Auto 0.04 X10*3/uL (0.00-0.03); Imm Gran Pct Auto 0.4 % (0.0-0.4); Lymphocytes Absolute Auto 1.7 X10*3/uL (1.2-4.9); Lymphocytes Percent Auto 17.9 % (20-40); Mean Corpuscular HGB Conc 32.5 g/dl (31.0-35.0); Mean Corpuscular Hemoglobin 28.6 pg (27.0-33.0); Mean Corpuscular Volume 87.9 fL (80.0-98.0); Mean Platelet Volume 10.6 fL (9.4-12.3); Monocytes Absolute Auto 0.9 X10*3/uL (0.1-1.2); Neutrophils Absolute Auto 6.7 x10*3/uL (2.0-8.3); Neutrophils Percent Auto 71.7 % (45-73); Platelet Count 454 X10*3/uL (160-400); Red Cell Distribution Width 14.1 % (11.0-16.0); White Blood Count 9.4 X10*3/uL (4.8-10.8)
[2021-07-22 16:11] LABS: Anion Gap 14 (12-20); Blood Urea Nitrogen 14 mg/dL (9-16); Calcium 9.9 mg/dL (8.4-10.2); Carbon Dioxide 25 mmol/L (22-29); Chloride 102 mmol/L (96-108); Estimated Glomerular Filt Rate > 60; Glucose Random 165 mg/dL (60-115); Potassium 4.1 mmol/L (3.3-5.1); Sodium 137 mmol/L (135-145)
[2021-07-22 16:15] LABS: Troponin-I High Sensitivity 21.1 ng/L (<3.5-17.0)
[2021-07-22 18:00] VITALS: BP 161/74; PULSE 84; RESP 20; O2SAT 99
--- NOTE | 2021-07-22 18:06 | PC.NURSE ---
Labs drawn, pt resting comfortably, no needs at this time NSR on monitor. Will continue to monitor.
[2021-07-22 18:32] LABS: Troponin-I High Sensitivity 18.4 ng/L (<3.5-17.0)
[2021-07-22 19:51] VITALS: BP 150/76; PULSE 81; RESP 16
== END 2021-07-22 19:53 | disposition home or self-care (01) ==
PROVIDERS: Emergency Provider Emergency Medicine; PCP Internal Medicine
DX: R00.2 Palpitations (principal); R42 Dizziness and giddiness; I10 Essential (primary) hypertension
CPT/HCPCS: 36415; 80048; 81003; 84484; 85025; 93005; 99283; 99285

== ENCOUNTER 2021-08-17 11:46 | Outpatient (REF) | payer OTHER, SELFPAY ==
[2021-08-17 12:39] LABS: Binax Internal Control QC Valid; Binax Now Covid-19 Ag Positive (Negative)
== END 2021-08-17 11:47 | disposition home or self-care (01) ==
LOC: HO.LAB 11:46
PROVIDERS: Visit Provider Internal Medicine
DX: Z20.822 Contact with and (suspected) exposure to COVID-19 (principal)
CPT/HCPCS: 36415; C9803

== ENCOUNTER 2021-08-22 10:26 | Emergency (ER) | payer OTHER, SELFPAY ==
--- NOTE | ~2021-08-22 | XR_ITS ---
EXAMINATION: XR CHEST CLINICAL INFORMATION: Covid COMPARISON: January 19, 2020 TECHNIQUE: AP portable view of the chest was obtained. FINDINGS: No significant acute parenchymal disease identified. No pneumothorax or pleural effusion. Heart normal size. No evidence of pulmonary edema. There is what appears be minimal atelectasis or scarring at the left lung base. There is severe degenerative change of the right shoulder noted. XR/XR chest 1V IMPRESSION: No significant acute parenchymal disease appreciated.
[2021-08-22 10:33] VITALS: BP 144/74; BP 153/87; PULSE 103; PULSE 96; RESP 20; TEMP 36.5; O2SAT 100; O2SAT 99; BMI 37.5
--- NOTE | 2021-08-22 11:05 | ED_ITS ---
HPI - General Adult General Chief complaint: General Medical Stated complaint: +COVID, N&V Time Seen by Provider: 08/22/21 11:03 Source: patient and old records reviewed History of Present Illness HPI narrative: Patient with a history of asthma, diabetes, back surgery, gastritis, presents with epigastric pain and nausea for the past several days. She was diagnosed with COVID-19 5 days ago. She states she has been unable to tolerate solid food for the past 3-4 days. She is able to drink liquids but it makes her nauseous. No diarrhea Last normal bowel movement yesterday Positive cough and wheezing. No significant dyspnea She states she is out of albuterol She has a history of gastritis secondary to H pylori. She had 1 dose of the [place] and [place] vaccine last year. No blisters Related Data Previous Rx's Medication Instructions Recorded cholecalciferol (vitamin D3) 25 25 mcg PO DAILY #90 cap 04/12/21 mcg (1,000 unit) capsule gabapentin 800 mg tablet 800 mg PO TID #90 tab 04/12/21 (Neurontin) simvastatin 10 mg tablet 10 mg PO DAILY #90 tab 04/12/21 metronidazole 500 mg tablet 500 mg PO BID 7 Days #14 tab 05/02/21 (Flagyl) levothyroxine 75 mcg tablet 75 mcg PO QAM #90 tab 07/14/21 lisinopril 20 mg tablet 20 mg PO DAILY #90 tab 07/14/21 albuterol sulfate 90 mcg/actuation 2 puff INHALATION Q6H PRN #8.5 g 08/17/21 aerosol inhaler albuterol sulfate 2.5 mg (3 mL) INHALATION Q4H PRN 08/22/21 #90 ml albuterol sulfate 90 mcg/actuation 2 inh INHALATION Q6H PRN #1 ea 08/22/21 breath activated powder inhaler omeprazole magnesium 20 mg 20 mg PO BID #30 tab 08/22/21 tablet,delayed release (Prilosec OTC) ondansetron 4 mg disintegrating 4 mg PO Q8H PRN #10 tab 08/22/21 tablet prednisone 20 mg tablet 40 mg PO DAILY #10 tab 08/22/21 Allergies Allergy/AdvReac Type Severity Reaction Status Date / Time No Known Allergies Allergy Verified 07/24/21 14:14 Review of Systems Constitutional: Comments: General malaise. No fevers today Cardiovascular: Comments: No chest pain Respiratory: Comments: Cough with wheezing and minimal dyspnea Gastrointestinal: Comments: Epigastric pain. Positive bloating sensation. No diarrhea. Positive nausea. 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 Mother No problems noted. Sister Glaucoma Social History Social History Housing: Apartment Alcohol intake: never Patient Tobacco Use Status: Never used Tobacco e-Cigarette/Vaping Use: Never Used Second Hand Smoke Exposure: No Use of substances other than those prescribed or required for medical reasons: No Advance Directives: No Advance Directives Information Provided: No service: No Current occupational status: retired Cognitive needs: No Hearing needs: No Vision needs: No Physical Exam Vital Signs: Vital Signs: Last Vital Signs Temp 97.7 F 08/22/21 10:33 Pulse 85 08/22/21 12:34 Resp 20 08/22/21 12:34 BP 157/81 H 08/22/21 12:34 Pulse Ox 96 08/22/21 12:34 BMI result Body Mass Index 37.5 Const: Other: Awake and alert in no acute distress Resp: Other: Bilateral expiratory wheezes but with good air entry Cardio: Other: Regular rate rhythm without murmurs rubs or gallops GI: Other: Soft. Mildly distended. Mild tenderness in the epigastrium without guarding or rebound. No lower abdominal sentences. No right upper quadrant tenderness. Skin: Other: One pink and dry without rash Neuro: Other: No focal deficit Extrem: Other: No calf tenderness Course Course Course Narrative: COVID-19 infection with GI symptoms Dehydration Gastritis Gastroenteritis Pancreatitis Cholecystitis less likely COVID-19 pneumonia Bacterial pneumonia Asthma exacerbation secondary to COVID-19 IV fluids GI cocktail IV Zofran Albuterol IV Solu-Medrol 12:22 p.m.. CBC shows normal white count. Lactic acid is elevated at 3.1, likely due to poor p.o. intake and not sepsis related. Will continue to treat with IV fluids, however. Creatinine is normal. AST and ALT are mildly elevated at 32 and 53. Troponin is mildly elevated at 32, with prior troponin of 21 and 18. Will repeat today to look for potential delta. 2:28 p.m.. Repeat troponin is 29. Patient is feeling much better and able to tolerate p.o. liquids. She is stable for discharge home We will prescribe albuterol pump as well as for nebulizer Prednisone Prilosec Zofran Medical Decision Making Lab Data Result diagrams: 08/22/21 11:31 08/22/21 11:31 Labs: Lab Results 08/22/21 08/22/21 08/22/21 Range/Units 11:31 11:31 11:31 WBC 8.4 (4.8-10.8) X10*3/uL RBC 4.92 (4.20-5.50) X10*6/uL Hgb 13.8 (12.0-16.0) g/dl Hct 42.0 (37.0-47.0) % MCV 85.4 (80.0-98.0) fL MCH 28.0 (27.0-33.0) pg MCHC 32.9 (31.0-35.0) g/dl RDW 13.1 (11.0-16.0) % Plt Count 309 D (160-400) X10*3/uL MPV 10.6 (9.4-12.3) fL Immature Gran % (Auto) 0.1 (0.0-0.4) % Neut % (Auto) 72.0 (45-73) % Lymph % (Auto) 19.2 L (20-40) % [place] % (Auto) 8.1 (2-11) % Eos % (Auto) 0.2 (0-4) % Baso % (Auto) 0.4 (0-2) % Lymph # (Auto) 1.6 (1.2-4.9) X10*3/uL [place] # (Auto) 0.7 (0.1-1.2) X10*3/uL Eos # (Auto) 0.0 (0.0-0.4) X10*3/uL Baso # (Auto) 0.0 (0.0-0.2) X10*3/uL Abs Immat Gran (auto) 0.01 (0.00-0.03) X10*3/uL Absolute Neuts (auto) 6.0 (2.0-8.3) x10*3/uL Absolute Nucleated RBC 0.000 (0.0-0.012) X10*3/uL Nucleated RBC % (auto) 0.0 (0.0-0.2) /100WBC Sodium 137 (135-145) mmol/L Potassium 4.3 (3.3-5.1) mmol/L Chloride 102 (96-108) mmol/L Carbon Dioxide 26 (22-29) mmol/L Anion Gap 13 (12-20) BUN 10 (9-16) mg/dL Creatinine 0.76 (0.5-1.4) mg/dL Estim Creat Clear Calc 76.4 Estimated GFR > 60 Random Glucose 176 H (60-115) mg/dL Lactic Acid 3.1 H* (0.5-2.0) mmol/L Calcium 10.2 (8.4-10.2) mg/dL Total Bilirubin 0.9 (0.0-1.0) mg/dL AST 32 H D (5-31) U/L ALT 53 H (0-31) U/L Alkaline Phosphatase 112 (39-117) U/L Troponin I High Sens (<3.5-17.0) ng/L Total Protein 7.9 (6.5-8.0) g/dL Albumin 3.9 (3.5-5.0) g/dL Lipase 60 (8-78) U/L 08/22/21 08/22/21 08/22/21 Range/Units 11:31 12:34 13:34 WBC (4.8-10.8) X10*3/uL RBC (4.20-5.50) X10*6/uL Hgb (12.0-16.0) g/dl Hct (37.0-47.0) % MCV (80.0-98.0) fL MCH (27.0-33.0) pg MCHC (31.0-35.0) g/dl RDW (11.0-16.0) % Plt Count (160-400) X10*3/uL MPV (9.4-12.3) fL Immature Gran % (Auto) (0.0-0.4) % Neut % (Auto) (45-73) % Lymph % (Auto) (20-40) % [place] % (Auto) (2-11) % Eos % (Auto) (0-4) % Baso % (Auto) (0-2) % Lymph # (Auto) (1.2-4.9) X10*3/uL [place] # (Auto) (0.1-1.2) X10*3/uL Eos # (Auto) (0.0-0.4) X10*3/uL Baso # (Auto) (0.0-0.2) X10*3/uL Abs Immat Gran (auto) (0.00-0.03) X10*3/uL Absolute Neuts (auto) (2.0-8.3) x10*3/uL Absolute Nucleated RBC (0.0-0.012) X10*3/uL Nucleated RBC % (auto) (0.0-0.2) /100WBC Sodium (135-145) mmol/L Potassium (3.3-5.1) mmol/L Chloride (96-108) mmol/L Carbon Dioxide (22-29) mmol/L Anion Gap (12-20) BUN (9-16) mg/dL Creatinine (0.5-1.4) mg/dL Estim Creat Clear Calc Estimated GFR Random Glucose (60-115) mg/dL Lactic Acid 2.8 H* (0.5-2.0) mmol/L Calcium (8.4-10.2) mg/dL Total Bilirubin (0.0-1.0) mg/dL AST (5-31) U/L ALT (0-31) U/L Alkaline Phosphatase (39-117) U/L Troponin I High Sens 32.0 H D 29.0 H (<3.5-17.0) ng/L Total Protein (6.5-8.0) g/dL Albumin (3.5-5.0) g/dL Lipase (8-78) U/L Discharge Plan Discharge Clinical Impression: Gastroenteritis, Acute dehydration, COVID-19 Patient Disposition: Home, Self-Care Instructions: Dehydration (ED), Gastroenteritis (ED), COVID-19 (Coronavirus Disease 2019) (ED) Additional Instructions: You have been referred to receive monoclonal antibodies against COVID-19. This reduces the risk of serious complications such as hospitalization and . Please call the number provided to arrange follow-up. Prescriptions: New albuterol sulfate 2.5 mg /3 mL (0.083 %) solution for nebulization 2.5 mg inhalation Q4H PRN (Reason: shortness of breath or wheezing) Qty: 90 RF: 0 albuterol sulfate 90 mcg/actuation aerosol powdr breath activated 2 inh inhalation Q6H PRN (Reason: shortness of breath or wheezing) Qty: 1 RF: 0 prednisone 20 mg tablet 40 mg PO DAILY Qty: 10 RF: 0 omeprazole magnesium [Prilosec OTC] 20 mg tablet,delayed release (DR/EC) 20 mg PO BID Qty: 30 RF: 0 ondansetron 4 mg tablet,disintegrating 4 mg PO Q8H PRN (Reason: nausea and vomiting) Qty: 10 RF: 0 No Action metronidazole [Flagyl] 500 mg tablet 500 mg PO BID 7 Days Qty: 14 RF: 0 levothyroxine 75 mcg tablet 75 mcg PO QAM Qty: 90 RF: 1 lisinopril 20 mg tablet 20 mg PO DAILY Qty: 90 RF: 1 albuterol sulfate 90 mcg/actuation HFA aerosol inhaler 2 puff inhalation Q6H PRN (Reason: shortness of breath or wheezing) Qty: 8.5 RF: 1 cholecalciferol (vitamin D3) 25 mcg (1,000 unit) capsule 25 mcg PO DAILY Qty: 90 RF: 0 gabapentin [Neurontin] 800 mg tablet 800 mg PO TID Qty: 90 RF: 8 simvastatin 10 mg tablet 10 mg PO DAILY Qty: 90 RF: 8
[2021-08-22] MEDS: Albuterol Sulfate (0.083%) 2.5 MG/3 ML VIAL.NEB INHALE (11:25)
[2021-08-22] MEDS: Lidocaine HCl Viscous 2 % 15 ML SOLUTION PO (11:28)
[2021-08-22] MEDS: Magnesium Hydrox/Alum Hydrox 30 ML ORAL.SUSP PO (11:28)
[2021-08-22] MEDS: ondansetron HCL 4 MG/2 ML VIAL IVPUSH (11:28)
[2021-08-22] MEDS: methylPREDNISolone Sod Succ 125 MG/2 ML VIAL IVPUSH (11:28)
[2021-08-22] MEDS: 0.9 % Sodium Chloride 1,000 ML 999 ML IV ×2 (11:28→13:11)
[2021-08-22 11:30] VITALS: PULSE 88; RESP 16; O2SAT 100
[2021-08-22 11:41] LABS: MANUAL DIFF FLAG NO
[2021-08-22 11:44] LABS: Basophils Percent Auto 0.4 % (0-2); Eosinophils Percent Auto 0.2 % (0-4); Hemoglobin 13.8 g/dl (12.0-16.0); Imm Gran Abs Auto 0.01 X10*3/uL (0.00-0.03); Imm Gran Pct Auto 0.1 % (0.0-0.4); Lymphocytes Absolute Auto 1.6 X10*3/uL (1.2-4.9); Lymphocytes Percent Auto 19.2 % (20-40); Mean Corpuscular HGB Conc 32.9 g/dl (31.0-35.0); Mean Corpuscular Volume 85.4 fL (80.0-98.0); Mean Platelet Volume 10.6 fL (9.4-12.3); Monocytes Absolute Auto 0.7 X10*3/uL (0.1-1.2); Monocytes Percent Auto 8.1 % (2-11); Platelet Count 309 X10*3/uL (160-400); Red Blood Count 4.92 X10*6/uL (4.20-5.50); Red Cell Distribution Width 13.1 % (11.0-16.0); White Blood Count 8.4 X10*3/uL (4.8-10.8)
[2021-08-22 11:55] LABS: Lactic Acid 3.1 mmol/L (0.5-2.0)
[2021-08-22 11:59] LABS: Alanine Aminotransferase 53 U/L (0-31); Albumin Level 3.9 g/dL (3.5-5.0); Alkaline Phosphatase 112 U/L (39-117); Anion Gap 13 (12-20); Aspartate Amino Transferase 32 U/L (5-31); Bilirubin Total 0.9 mg/dL (0.0-1.0); Blood Urea Nitrogen 10 mg/dL (9-16); Calcium 10.2 mg/dL (8.4-10.2); Carbon Dioxide 26 mmol/L (22-29); Chloride 102 mmol/L (96-108); Creatinine Clr Calc Pharmacy 76.4; Estimated Glomerular Filt Rate > 60; Glucose Random 176 mg/dL (60-115); Lipase 60 U/L (8-78); Potassium 4.3 mmol/L (3.3-5.1); Sodium 137 mmol/L (135-145); Total Protein 7.9 g/dL (6.5-8.0)
[2021-08-22 12:34] VITALS: BP 157/81; PULSE 85; RESP 20; O2SAT 96
[2021-08-22 13:40] LABS: Reflex Lactate? Lactic Acid Added
[2021-08-22 14:07] LABS: Lactic Acid 2.8 mmol/L (0.5-2.0)
[2021-08-22 15:42] LABS: Reflex Lactate? Lactic Acid Added
== END 2021-08-22 15:29 | disposition home or self-care (01) ==
PROVIDERS: Emergency Provider Emergency Medicine; PCP Internal Medicine
DX: U07.1 COVID-19 (principal); K52.9 Noninfective gastroenteritis and colitis, unspecified; E86.0 Dehydration; E11.9 Type 2 diabetes mellitus without complications; I10 Essential (primary) hypertension; E78.5 Hyperlipidemia, unspecified; J45.909 Unspecified asthma, uncomplicated; Z79.02 Long term (current) use of antithrombotics/antiplatelets; Z79.899 Other long term (current) drug therapy
CPT/HCPCS: 36415; 71045; 80053; 83605; 83690; 84484; 85025; 94640; 96361; 96374; 96375; 99284; J2405; J2930

== ENCOUNTER 2021-08-31 10:01 | Outpatient (REF) | payer OTHER, SELFPAY ==
--- NOTE | ~2021-08-31 | XR_ITS ---
EXAMINATION: XR CHEST CLINICAL INFORMATION: Dyspnea COMPARISON: 08/22/2021 TECHNIQUE: 2 views of the chest were obtained. FINDINGS: Cardiomediastinal silhouette is stable. No dense consolidation. No pleural effusion or pneumothorax. Severe degenerative changes in the right shoulder. Hemiarthroplasty in the left shoulder. Surgical clips in the left axilla. Partially visualized orthopedic hardware in the lumbar spine. XR/XR chest 2V IMPRESSION: Low lung volumes. No acute process.
--- NOTE | 2021-08-31 10:11 | ECG_ITS ---
Test Reason : htn Blood Pressure : / mmHG Vent. Rate : 100 BPM Atrial Rate : 100 BPM P-R Int : 128 ms QRS Dur : 072 ms QT Int : 336 ms P-R-T Axes : 052 027 079 degrees QTc Int : 433 ms Normal sinus rhythm Normal ECG When compared with ECG of 22-JUL-2021 15:47, No significant change was found Referred By: Angel Peraza Electronically Signed By:Arun Espinosa
[2021-08-31 10:34] LABS: MANUAL DIFF FLAG NO
[2021-08-31 10:35] LABS: Basophils Percent Auto 0.2 % (0-2); Eosinophils Absolute Auto 0.1 X10*3/uL (0.0-0.4); Eosinophils Percent Auto 0.6 % (0-4); Hematocrit 43.5 % (37.0-47.0); Hemoglobin 13.9 g/dl (12.0-16.0); Imm Gran Abs Auto 0.03 X10*3/uL (0.00-0.03); Imm Gran Pct Auto 0.3 % (0.0-0.4); Lymphocytes Absolute Auto 1.6 X10*3/uL (1.2-4.9); Lymphocytes Percent Auto 16.4 % (20-40); Mean Corpuscular Hemoglobin 27.9 pg (27.0-33.0); Mean Corpuscular Volume 87.3 fL (80.0-98.0); Mean Platelet Volume 11.2 fL (9.4-12.3); Monocytes Absolute Auto 0.8 X10*3/uL (0.1-1.2); Monocytes Percent Auto 7.7 % (2-11); Neutrophils Absolute Auto 7.2 x10*3/uL (2.0-8.3); Neutrophils Percent Auto 74.8 % (45-73); Platelet Count 304 X10*3/uL (160-400); Red Blood Count 4.98 X10*6/uL (4.20-5.50); Red Cell Distribution Width 13.2 % (11.0-16.0); White Blood Count 9.7 X10*3/uL (4.8-10.8)
[2021-08-31 11:37] LABS: Anion Gap 14 (12-20); Blood Urea Nitrogen 15 mg/dL (9-16); Calcium 9.8 mg/dL (8.4-10.2); Carbon Dioxide 25 mmol/L (22-29); Chloride 103 mmol/L (96-108); Estimated Glomerular Filt Rate > 60; Glucose Random 177 mg/dL (60-115); Potassium 4.4 mmol/L (3.3-5.1); Sodium 138 mmol/L (135-145)
[2021-08-31 12:02] LABS: Thyroid Stimulating Hormone 1.02 uIU/mL (0.32-4.0)
== END 2021-08-31 10:02 | disposition home or self-care (01) ==
LOC: HO.XRAY 10:01
PROVIDERS: PCP Internal Medicine; Visit Provider Internal Medicine
DX: Z00.00 Encounter for general adult medical examination without abnormal findings (principal); R06.00 Dyspnea, unspecified; I10 Essential (primary) hypertension; R51.9 Headache, unspecified; Z13.0 Encounter for screening for diseases of the blood and blood-forming organs and certain disorders involving the immune mechanism; Z13.9 Encounter for screening, unspecified
CPT/HCPCS: 36415; 71046; 80048; 84443; 85025; 93005

== ENCOUNTER → 2021-09-07 13:00 | Outpatient (REF) | payer OTHER, SELFPAY ==
--- NOTE | 2021-09-07 13:07 | ECG_ITS ---
Hook-up date: 2021-09-07 13:26:00 Duration: 47:59:00 Test Indications: PALPITATIONS Medications: 523309 QRS complexes 1 Ventricular ectopics which represent <1 % of total QRS comp. 75 Supraventricular ectopics which represent <1 % of total QRS comp. * Paced QRS complexs which represent % of total QRS comp. VENTRICULAR ECTOPY 1 Isolated 0 Bigeminal Cycles 0 Couplets 0 Runs 0 Beats in Runs * Beats LONGEST at * BPM at :: -- * Beats FASTEST at * BPM at :: -- SUPRAVENTRICULAR ECTOPY 52 Isolated 2 Couplets 5 Runs 19 Beats in Runs 5 Beats LONGEST at 128 BPM at 00:43:01 2021-09-08 3 Beats FASTEST at 168 BPM at 17:14:32 2021-09-08 HEART RATES 61 MIN at 05:50:01 2021-09-08 88 AVG 145 MAX at 17:00:34 2021-09-08 LONGEST RR 1.0800 secs at 01:47:28 2021-09-08 S-T LEVELS Channel 1 - 128 mm at 13:26:00 2021-09-07 - 128 mm at 13:26:00 2021-09-07 Channel 2 - 128 mm at 13:26:00 2021-09-07 - 128 mm at 13:26:00 2021-09-07 Channel 3 - 128 mm at 03:24:51 -- - 128 mm at 03:24:51 Underlying rhythm is sinus; Average ventricular rate 88/min; range 61-145/min; About 16% of the time, rate >100/min; Rare supraventricular ectopy with very brief runs; Patient did not report any symptoms in the diary Referred By: Angel Peraza Overread By: TRUDY VEGA
== END ==
LOC: HO.CARD 13:00
PROVIDERS: PCP Internal Medicine; Visit Provider Internal Medicine
DX: R00.2 Palpitations (principal)
CPT/HCPCS: 93225; 93226

== ENCOUNTER 2021-09-11 11:59 | Outpatient (REF) | payer OTHER, SELFPAY ==
[2021-09-11 13:37] LABS: Anion Gap 13 (12-20); Blood Urea Nitrogen 13 mg/dL (9-16); Calcium 10.1 mg/dL (8.4-10.2); Carbon Dioxide 29 mmol/L (22-29); Chloride 104 mmol/L (96-108); Estimated Glomerular Filt Rate > 60; Glucose Random 125 mg/dL (60-115); Potassium 4.9 mmol/L (3.3-5.1); Sodium 141 mmol/L (135-145)
[2021-09-11 13:45] LABS: Estimated Average Glucose 137 mg/dL; Hemoglobin A1C 167.5316 umol/L; Hemoglobin A1c % 6.4 %
== END 2021-09-11 12:00 | disposition home or self-care (01) ==
LOC: HO.LAB 11:59
PROVIDERS: PCP Internal Medicine; Visit Provider Internal Medicine
DX: R51.9 Headache, unspecified (principal); E11.9 Type 2 diabetes mellitus without complications
CPT/HCPCS: 36415; 80048; 83036

== ENCOUNTER 2021-12-06 13:13 | Outpatient (REF) | payer OTHER, SELFPAY ==
--- NOTE | ~2021-12-06 | XR_ITS ---
EXAMINATION: XR THORACIC SPINE CLINICAL INFORMATION: Pain in thoracic spine COMPARISON: None TECHNIQUE: 3 views of the thoracic spine were obtained. FINDINGS: There is normal thoracic kyphosis. The vertebral heights and alignment is normal. There is no visible acute fracture, dislocation or subluxation. There is moderate spondylosis of dorsal spine. XR/XR thoracic spine 3V IMPRESSION: No acute fracture, dislocation or subluxation seen. There is moderate spondylosis dorsal spine. No lytic process.
[2021-12-06 15:37] LABS: Appearance Urine CLEAR; Color Urine YELLOW; Glucose Urine UA NEG (NEG); Leukocyte Esterase Urine NEG (NEG); Nitrite Urine NEG (NEG); PH 5.5 (5.0-8.0); Specific Gravity - Urine <= 1.005 (1.005-1.025); Urine Blood NEG (NEG); Urine Ketones NEG (NEG); Urine Protein NEG (NEG-TRACE)
[2021-12-06 15:54] LABS: Alanine Aminotransferase 28 U/L (0-31); Alkaline Phosphatase 96 U/L (39-117); Amylase 132 U/L (28-100); Anion Gap 13 (12-20); Aspartate Amino Transferase 21 U/L (5-31); Bilirubin Total 0.5 mg/dL (0.0-1.0); Blood Urea Nitrogen 12 mg/dL (9-16); C Reactive Protein 1.02 mg/dL (< or = 0.50); Calcium 10.3 mg/dL (8.4-10.2); Carbon Dioxide 25 mmol/L (22-29); Chloride 102 mmol/L (96-108); Estimated Glomerular Filt Rate > 60; Glucose Random 119 mg/dL (60-115); Lipase 77 U/L (8-78); Potassium 4.3 mmol/L (3.3-5.1); Sodium 136 mmol/L (135-145); Total Protein 7.9 g/dL (6.5-8.0)
== END 2021-12-06 13:14 | disposition home or self-care (01) ==
LOC: HO.XRAY 13:13
PROVIDERS: PCP Internal Medicine; Referring Provider Internal Medicine; Visit Provider Nurse Practitioner
DX: R10.10 Upper abdominal pain, unspecified (principal); R63.4 Abnormal weight loss; M54.6 Pain in thoracic spine
CPT/HCPCS: 36415; 72072; 80053; 81003; 82150; 83690; 86140; 99202

== ENCOUNTER 2021-12-10 07:32 | Outpatient (REF) | payer OTHER, SELFPAY ==
--- NOTE | ~2021-12-10 | MM_ITS ---
EXAMINATION: MM DIAGNOSTIC DIGITAL BREAST TOMOSYNTHESIS, BILATERAL CLINICAL INFORMATION: Short interval six-month follow-up probable benign calcifications bilateral breasts, initially noted at new baseline mammography. TC score 5%. COMPARISON: Mammography: 06/12/2021, 06/05/2021 (new baseline, BI-RADS 0). TECHNIQUE: Digital breast tomosynthesis is performed in both the craniocaudal and mediolateral oblique views along with computer-aided detection (CAD). Synthesized 2D images are generated from the tomosynthesis. Additional magnification views are obtained: Bilateral ML, right CC, left CC x2. FINDINGS: There are scattered areas of fibroglandular density (ACR BI-RADS breast composition Category b). Breast tissue composition borders on heterogeneously dense. Parenchymal pattern is similar to prior studies. There is no developing density or interval mass or architectural abnormality. Biopsy clip marker again noted mid 6:00 right breast. There are scattered bilateral grouped heterogeneous coarse calcifications similar in distribution to prior studies. No no significant interval changes. Calcifications will be reassessed again at time of annual bilateral mammography, due in 6 months. Results are provided to the patient at time of visit by the technologist. MM/MM tomosynthesis diagnostic BI IMPRESSION: Scattered bilateral grouped heterogeneous coarse calcifications similar to prior exam. ASSESSMENT: BI-RADS 3: Probably Benign RECOMMENDATION: Diagnostic mammography at time of annual bilateral mammography, due in 6 months. This patient's information was entered into a reminder system with a target due date for their next mammogram.
[2021-12-10 07:46] LABS: MANUAL DIFF FLAG NO
[2021-12-10 08:08] LABS: Basophils Percent Auto 0.5 % (0-2); Eosinophils Absolute Auto 0.2 X10*3/uL (0.0-0.4); Eosinophils Percent Auto 1.9 % (0-4); Hematocrit 41.8 % (37.0-47.0); Hemoglobin 13.4 g/dl (12.0-16.0); Imm Gran Abs Auto 0.02 X10*3/uL (0.00-0.03); Imm Gran Pct Auto 0.3 % (0.0-0.4); Lymphocytes Absolute Auto 2.8 X10*3/uL (1.2-4.9); Lymphocytes Percent Auto 35.1 % (20-40); Mean Corpuscular HGB Conc 32.1 g/dl (31.0-35.0); Mean Corpuscular Hemoglobin 27.9 pg (27.0-33.0); Mean Corpuscular Volume 87.1 fL (80.0-98.0); Mean Platelet Volume 10.5 fL (9.4-12.3); Monocytes Absolute Auto 0.7 X10*3/uL (0.1-1.2); Monocytes Percent Auto 8.2 % (2-11); Neutrophils Absolute Auto 4.3 x10*3/uL (2.0-8.3); Platelet Count 381 X10*3/uL (160-400); Red Cell Distribution Width 13.7 % (11.0-16.0); White Blood Count 7.9 X10*3/uL (4.8-10.8)
[2021-12-10 08:15] LABS: Estimated Average Glucose 120 mg/dL; Hemoglobin A1c % 5.8 %
[2021-12-10 08:32] LABS: Alanine Aminotransferase 21 U/L (0-31); Albumin Level 3.9 g/dL (3.5-5.0); Alkaline Phosphatase 90 U/L (39-117); Anion Gap 12 (12-20); Aspartate Amino Transferase 15 U/L (5-31); Bilirubin Total 0.6 mg/dL (0.0-1.0); Blood Urea Nitrogen 16 mg/dL (9-16); Carbon Dioxide 29 mmol/L (22-29); Chloride 105 mmol/L (96-108); Cholesterol 190 mg/dL; Estimated Glomerular Filt Rate > 60; Glucose Fasting 109 mg/dL (60-99); HDL Cholesterol 30 mg/dL; LDL Cholesterol Calculated 127 mg/dl; Potassium 4.6 mmol/L (3.3-5.1); Sodium 141 mmol/L (135-145); Total Protein 7.3 g/dL (6.5-8.0); Triglycerides 168 mg/dL
[2021-12-10 08:56] LABS: Thyroid Stimulating Hormone 1.39 uIU/mL (0.32-4.0)
== END 2021-12-10 07:33 | disposition home or self-care (01) ==
LOC: HO.MAMMO 07:32
PROVIDERS: PCP Internal Medicine; Visit Provider Internal Medicine
DX: Z00.00 Encounter for general adult medical examination without abnormal findings (principal); Z13.0 Encounter for screening for diseases of the blood and blood-forming organs and certain disorders involving the immune mechanism; R92.1 Mammographic calcification found on diagnostic imaging of breast; E11.9 Type 2 diabetes mellitus without complications
CPT/HCPCS: 36415; 77062; 77066; 80053; 80061; 83036; 84443; 85025

== ENCOUNTER 2021-12-21 12:01 | Outpatient (REF) | payer OTHER, SELFPAY ==
--- NOTE | ~2021-12-21 | US_ITS ---
EXAMINATION: US ABDOMEN COMPLETE CLINICAL INFORMATION: Upper abdominal pain, unspecified. COMPARISON: None TECHNIQUE: Real-time imaging of the abdominal viscera. Technically limited study secondary to body habitus. FINDINGS: PANCREAS: Not well-visualized due to overlying bowel gas. ABDOMINAL AORTA: The proximal, mid, and distal segments are normal in caliber. INFERIOR VENA CAVA: Visualized portions are normal. LIVER: The liver is normal in size. The liver contour is normal. Diffuse increased echogenicity. No focal hepatic lesion. There is no intrahepatic biliary duct dilatation seen. GALLBLADDER: Normal. The gallbladder is physiologically distended without evidence of stones, sludge, polyps, wall thickening or pericholecystic fluid. COMMON BILE DUCT: Normal in caliber measuring 0.3 cm in diameter. RIGHT KIDNEY: Low pole isoechoic rounded mass suspected measuring up to 2 cm. No hydronephrosis or renal calculi. The kidney measures 11.8 cm in maximum dimension. LEFT KIDNEY: Normal. No hydronephrosis. No renal calculi or focal parenchymal lesions. The kidney measures 13.0 cm in maximum dimension. SPLEEN: Normal. The spleen measures 9.8 cm in maximum dimension. FREE FLUID: None. US/US abdomen complete IMPRESSION: Limited ultrasound due to body habitus. Pancreas not visualized. Right lower pole cortical based rounded lesion suspected which is not a cyst by this limited ultrasound. Further assessment with MRI without and with contrast recommended.
== END 2021-12-21 12:02 | disposition home or self-care (01) ==
LOC: HO.US 12:01
PROVIDERS: Visit Provider Nurse Practitioner
DX: R10.10 Upper abdominal pain, unspecified (principal); R63.4 Abnormal weight loss
CPT/HCPCS: 76700

== ENCOUNTER → 2022-01-03 14:09 | Outpatient (BNVA) | payer OTHER, SELFPAY | PROVIDERS: PCP Internal Medicine; Referring Provider Internal Medicine; Visit Provider Nurse Practitioner | DX: R10.10 Upper abdominal pain, unspecified (principal); R63.4 Abnormal weight loss; M54.6 Pain in thoracic spine; R74.8 Abnormal levels of other serum enzymes | CPT/HCPCS: 99212 ==

== ENCOUNTER 2022-01-11 14:00 | Outpatient (RCR) | payer OTHER, SELFPAY | END 2022-01-14 10:29 | disposition home or self-care (01) | LOC: HO.PT 14:00 | PROVIDERS: PCP Internal Medicine; Visit Provider Physician Assistant | DX: M54.50 Low back pain, unspecified (principal); M25.551 Pain in right hip; M25.552 Pain in left hip | CPT/HCPCS: 97110; 97140; 97162; 97530 ==

== ENCOUNTER 2022-02-06 15:06 | Outpatient (REF) | payer OTHER, SELFPAY ==
--- NOTE | ~2022-02-06 | CT_ITS ---
EXAMINATION: CT ABDOMEN WITHOUT CONTRAST CLINICAL INFORMATION: Upper abdominal pain. Probable mass in the right lower pole on recent ultrasound 12/21/2021. COMPARISON: Ultrasound abdomen 12/21/2021. TECHNIQUE: Contiguous axial thin section helical images of the abdomen were performed without contrast. The data set was reformatted in the coronal and sagittal planes and reviewed on an independent workstation. This CT examination was performed using dose optimization techniques as appropriate, variously including the following: *Automated exposure control *Adjustment of mA and/or kV according to patient size (this includes techniques or standardized protocols for targeted exams where dose is matched to indication/reason for exam; i.e. extremities or head) *Use of iterative reconstruction technique DLP: 448 mGy-cm FINDINGS: LUNG BASES: The lung bases are clear. The heart size is normal. LIVER, GALLBLADDER, BILIARY TREE: The liver is homogeneous in density, normal size and contour. No focal lesion or intrahepatic ductal dilatation seen. The gallbladder is unremarkable. PANCREAS: The pancreas is normal size and density. Peripancreatic fat planes are preserved. SPLEEN: Spleen is unremarkable. ADRENAL GLANDS AND KIDNEYS: Bilateral adrenal glands are symmetrical and normal size. Both kidneys are normal size, shape and lobulated contour. No radiopaque renal calculi or hydronephrosis seen. On this nonenhanced CT, there is no mass suspected along the lower pole. BOWEL LOOPS: There is scattered stool, diverticuli and gas seen throughout the colon without any significant distention. Oral contrast opacified small-bowel loops are normal caliber. There is no free fluid or free air. LYMPH NODES: Normal. VASCULAR: Unremarkable. BONES: There are L4-L5 and L3-L4 disc prosthesis stabilized with bilateral pedicular screws at L3, L4, L5 vertebra and interconnecting rods. There is vacuum disc phenomena and loss of disc height L5-S1 and L2-L3 disc levels. There is minimal vacuum disc phenomena at the L1-L2 disc level. There is moderate ventral spondylosis seen throughout the lumbar spine. No aggressive lytic or sclerotic process seen. CT/CT abdomen wo con IMPRESSION: Symmetrical lobulated kidneys. No radiopaque calculi or mass or cyst seen on this exam. Especially the right lower pole appears unremarkable. Fleischner guidelines were followed.
[2022-02-06] MEDS: Barium Sulfate Oral (Berry) 450 ML ORAL.SUSP PO (17:11)
== END 2022-02-06 15:07 | disposition home or self-care (01) ==
LOC: HO.CT 15:06
PROVIDERS: PCP Internal Medicine; Visit Provider Nurse Practitioner
DX: R10.10 Upper abdominal pain, unspecified (principal)
CPT/HCPCS: 74150

== ENCOUNTER → 2022-02-27 12:41 | Outpatient (BNVA) | payer OTHER, SELFPAY | PROVIDERS: PCP Internal Medicine; Visit Provider Nurse Practitioner | DX: R10.10 Upper abdominal pain, unspecified (principal) | CPT/HCPCS: 99212 ==

== ENCOUNTER 2022-05-13 07:49 | Outpatient (REF) | payer OTHER, SELFPAY ==
--- NOTE | ~2022-05-13 | XR_ITS ---
EXAMINATION: XR THORACOLUMBAR SPINE CLINICAL INFORMATION: Thoracic spine pain COMPARISON: None TECHNIQUE: 3 views FINDINGS: There is maintained thoracic kyphosis. The vertebral heights, alignment appears normal. Mild degenerative disc changes seen in the upper and mid dorsal spine with ventral spondylosis. There is mild lateral spondylosis well. No acute fracture or lytic process seen. The paravertebral soft tissues are normal. XR/XR thoracic spine 2V IMPRESSION: No compression fractures or subluxations are identified. Degenerative disc changes and spondylosis throughout mid dorsal spine.
[2022-05-13 09:02] LABS: Cholesterol 147 mg/dL; HDL Cholesterol 30 mg/dL; LDL Cholesterol Calculated 93 mg/dl; Triglycerides 121 mg/dL
== END 2022-05-13 07:50 | disposition home or self-care (01) ==
LOC: HO.LAB 07:49
PROVIDERS: Absent Provider Nurse Practitioner; PCP Internal Medicine; Visit Provider Internal Medicine
DX: M54.6 Pain in thoracic spine (principal); E03.9 Hypothyroidism, unspecified; E78.5 Hyperlipidemia, unspecified
CPT/HCPCS: 36415; 72070; 80061; 84443

== ENCOUNTER 2022-05-24 11:24 | Day surgery (SDC) | payer OTHER, SELFPAY ==
--- NOTE | 2022-05-23 13:45 | HO.ANESPROP2 ---
Documented by User: Mireille Darby NP 05/23/22 13:48 HPI - Anesthesia Eval Consult details Narrative: 67yo F for Upper Endoscopy PMFSH Active Problems Active Problems: All Active Problems (Updated 05/16/22 @ 14:00 by Angel Peraza MD) Asthma (Acute) Elevated amylase (Acute) Thoracic back pain (Acute) Weight loss (Acute) Upper abdominal pain (Acute) Elevated glucose (Acute) Obesity (Acute) Dyspnea (Acute) COVID-19 (Acute) Intermittent palpitations (Acute) History of arthroplasty of left shoulder (Acute) Encounter for gynecological examination with Papanicolaou smear of cervix (Acute) Obesity (Acute) Adult general medical exam (Acute) Cervical cancer screening (Acute) Eye exam, routine (Acute) Post-menopausal (Acute) Screening for breast cancer (Acute) Screening for colon cancer (Acute) Screening for diabetes mellitus (Acute) Spinal stenosis of lumbar region (Acute) Spondylosis of lumbosacral spine with radiculopathy (Acute) Hypothyroidism (Acute) Hypertension (Acute) High cholesterol (Acute) Back pain (Acute) Past Medical History Medical History Eye exam, routine High cholesterol Hospital discharge follow-up Hypertension Hypothyroidism Obesity Obesity Post-menopausal Screening for breast cancer Screening for colon cancer Screening for diabetes mellitus Family History Family History Father No problems noted. Mother No problems noted. Sister Glaucoma Surgical History Surgical History History of back surgery History of section History of colonoscopy History of hysterectomy History of total right knee replacement Status post total replacement of left shoulder Social History Social History Housing: Apartment Alcohol intake: never Patient Tobacco Use Status: Never used Tobacco e-Cigarette/Vaping Use: Never Used Second Hand Smoke Exposure: No Use of substances other than those prescribed or required for medical reasons: No Are you DNR?: No Advance Directives: No Advance Directives Information Provided: Yes service: No Current occupational status: retired Cognitive needs: No Hearing needs: No Vision needs: Yes Meds Allergies Allergy/AdvReac Type Severity Reaction Status Date / Time No Known Allergies Allergy Verified 05/16/22 13:39 Home Medications Medication Instructions Recorded Confirmed Last Taken Type omeprazole 20 mg capsule,delayed 20 mg PO BID 02/27/22 05/16/22 Unknown History release Exam Exam Date and Time: May 23, 2022 1345 Pertinent Lab Results Pertinent Lab Results: Laboratory Tests 12/10/21 12/10/21 07:43 07:43 WBC 7.9 Hgb 13.4 Hct 41.8 Plt Count 381 D Sodium 141 Potassium 4.6 Chloride 105 Carbon Dioxide 29 BUN 16 Creatinine 0.74 Narrative Narrative: Holter 08/2021 Underlying rhythm is sinus; Average ventricular rate 88/min; range 61-145/min; About 16% of the time, rate >100/min; Rare supraventricular ectopy with very brief runs; Patient did not report any symptoms in the diary EKG 08/2021 Vent. Rate : 100 BPM ? ? Atrial Rate : 100 BPM ?? P-R Int : 128 ms? QRS Dur : 072 ms ? ? QT Int : 336 ms ? ? ? P-R-T Axes : 052 027 079 degrees ?? QTc Int : 433 ms ? Normal sinus rhythm Normal ECG When compared with ECG of 22-JUL-2021 15:47, No significant change was found Assessment and Plan Assessment Anesthesia Assessment: Chart Reviewed Documented by User: Shaneka Livingston MD 05/24/22 14:02 [facility] Past Medical History Medical History Eye exam, routine High cholesterol Hospital discharge follow-up Hypertension Hypothyroidism Obesity Obesity Post-menopausal Screening for breast cancer Screening for colon cancer Screening for diabetes mellitus Family History Family History Father No problems noted. Mother No problems noted. Sister Glaucoma Family history of problems with anesthesia: No Surgical History Surgical History History of back surgery History of section History of colonoscopy History of hysterectomy History of total right knee replacement Status post total replacement of left shoulder History of Problems with Anesthesia: No Social History Social History Housing: Apartment Alcohol intake: never Patient Tobacco Use Status: Never used Tobacco e-Cigarette/Vaping Use: Never Used Second Hand Smoke Exposure: No Use of substances other than those prescribed or required for medical reasons: No Are you DNR?: No Advance Directives: No Advance Directives Information Provided: Yes service: No Current occupational status: retired Cognitive needs: No Hearing needs: No Vision needs: Yes Meds Allergies Allergy/AdvReac Type Severity Reaction Status Date / Time No Known Allergies Allergy Verified 05/16/22 13:39 Home Medications Medication Instructions Recorded Confirmed Last Taken Type omeprazole 20 mg capsule,delayed 20 mg PO BID 02/27/22 05/16/22 Unknown History release Exam Airway Mallampati Class: II TM Dist: >3cm Neck ROM: Full Heart: rrr Lungs: cta Assessment and Plan Assessment Anesthesia Assessment: Anesthesia Plan Discussed and Chart Reviewed Final Anesthetic Review Family History of Problems with Anesthesia: No History of Problems with Anesthesia: No NPO: Yes ASA Class: II Final Preanesthetic Review: No Changes in Pt Med Stat, Meds/Allgs Chart Reviewed and Consent Obtained/Reviewed Patient Risk: Intermediate Procedure Risk: Intermediate Anesthetic Plan Anesthetic Plan: MAC: Disposition: Standard PACU
[2022-05-24 12:20] VITALS: BMI 31.9
[2022-05-24 12:41] VITALS: BP 148/82; PULSE 82; RESP 16; TEMP 36.2; O2SAT 98
[2022-05-24] MEDS: Lactated Ringers 1,000 ML 100 ML IVCONT (12:43)
--- NOTE | 2022-05-24 13:07 | MHC.SHP ---
Pre-Procedural Eval Section A Date of Service: 05/24/22 Section B Chief Complaint: wt loss,pain in spine, abnormal enzymes levels, Relevant Family History (Specify if Yes): No Relevant Social History: None Present Medications: see Short Stay Collaborative assessment Medical History: Significant History (High cholesterol Hospital discharge follow-up Hypertension Hypothyroidism Obesity Obesity Post-menopausal) History of Previous Operations: Relevant previous surgery/procedure and date(s) (History of back surgery History of section History of colonoscopy History of hysterectomy History of total right knee replacement Status post total replacement of left shoulder) Allergies: Allergies Allergy/AdvReac Type Severity Reaction Status Date / Time No Known Allergies Allergy Verified 05/16/22 13:39 Review of Systems Sugical H&P ROS: Negative: Constitution and Cardiovascular and Yes, Specify: Gastrointestinal (upper abdominal pain) Exam Surgical H&P Exam: Normal: Heart, Normal: Lungs, Normal: Extremities and Normal: Abdomen Plan Diagnosis/Plan: Unchanged I have reviewed the history and physical and performed a pertinent physical examination on my patient. No changes have occurred unless specified.
--- NOTE | 2022-05-24 13:51 | PM.OP ---
Brief Operative Note Date of Service: 05/24/22 Pre-op diagnosis: Abdominal pain, weight loss Post-op diagnosis: other (GERD, hiatal hernia, gastritis, gastric polyp) Procedure: FLEXIBLE TRANSORAL UPPER GASTROINTESTINAL ENDOSCOPY WITH BIOPSIES Consent: Indications for the procedure and potential complications of bleeding, perforation, reaction to medications and missed diagnosis were discussed with the patient and informed consent was obtained. Instrument: Olympus GIF H 190 mid size upper endoscope Monitoring: Vital signs and clinical assessment, continuous EKG monitoring, Pulse oximetry, Carbon Dioxide monitoring and blood pressure monitoring were done throughout the procedure. Procedure: The patient was placed in the left lateral decubitis position and pre-procedure medications were administered and a bite block was placed. The endoscope was inserted into the mouth and advanced under direct vision to the third part of duodenum. A careful inspection was made as the upper endoscope was withdrawn including a retroflexed examination of the proximal stomach; Findings and interventions are described below. Findings: Larynx: Normal Esophagus: GE junction at 34 cms, small hiatal hernia 34 to 36 cms. A single 2 cms superficial erosion at GEJ. Multiple 1 -2 cms tongues of possible Pino's - biopsied. Stomach: Prominent gastric folds in the body of the stomach - biopsied. A 4-5 mm benign appearing polyp in the gastric body - biopsied. Mild diffuse gastric erythema. Biopsies were obtained. Grade 2 flap valve on retroflexed examination of the cardia. Duodenum: Normal bulb and descending duodenum. Biopsies were obtained from 3rd part of the duodenum to check for celiac sprue. Intervention: Biopsies as noted above Impression and Post Procedure Diagnosis: Endoscopy Findings: ESOPHAGUS: GE junction at 34 cms, small hiatal hernia 34 to 36 cms. A single 2 cms superficial erosion at GEJ. Multiple 1 -2 cms tongues of possible Pino's - biopsied.. STOMACH: Prominent gastric folds in the body of the stomach - biopsied. A 4-5 mm benign appearing polyp in the gastric body - biopsied. Mild diffuse gastric erythema. Biopsies were obtained. DUODENUM: Normal - biopsied to check for celiac sprue Plan: Await pathology results. Repeat EGD in 2 years if esophageal biopsies show intestinal metaplasia. Patient has an appointment on 06/28/22 in the GI Clinic with Felicitas Colbert NP. Above findings were reviewed with the patient and GERD, hiatal hernia and Gastric Polyps handouts were given in the discharge area Surgeon: Tomas Harmon MD Anesthesia: MAC (Dr Goel) Was an Light Bulb Assembler used for this Procedure?: Yes Light Bulb Assembler: Josephine Green Estimated blood loss (mL): 0 Pathology: other (A. small bowel bxs, R/O celiac B. gastric antrum bxs, R/O H. pylori C. gastric polyp D. gastric fold bxs E. distal esophagus bxs, R/O Pino's) Condition: stable Disposition: PACU
[2022-05-24 14:25] VITALS: BP 96/54; PULSE 80; RESP 16; TEMP 36.5; O2SAT 97
[2022-05-24 14:40] VITALS: BP 119/68; PULSE 74; RESP 18; O2SAT 98
[2022-05-24 14:55] VITALS: BP 130/71; PULSE 73; RESP 18; O2SAT 98
[2022-05-24 15:10] VITALS: BP 129/73; PULSE 70; RESP 18; TEMP 37.3; O2SAT 98
== END 2022-05-24 15:46 | disposition home or self-care (01) ==
PROVIDERS: PCP Internal Medicine; Visit Provider Internal Medicine Gastroenterology
PROC: 0DJ08ZZ Inspection of Upper Intestinal Tract, Via Natural or Artificial Opening Endoscopic (ICD-10-PCS; CPT 43235; principal; 2022-05-24 12:30)
DX: R10.10 Upper abdominal pain, unspecified (principal); R74.8 Abnormal levels of other serum enzymes; K21.9 Gastro-esophageal reflux disease without esophagitis; K44.9 Diaphragmatic hernia without obstruction or gangrene; K29.50 Unspecified chronic gastritis without bleeding; K31.7 Polyp of stomach and duodenum; E78.00 Pure hypercholesterolemia, unspecified; I10 Essential (primary) hypertension; Z79.899 Other long term (current) drug therapy
CPT/HCPCS: 43239; 88305; 88342

== ENCOUNTER → 2022-05-31 14:59 | Outpatient (BNVA) | payer OTHER, SELFPAY | PROVIDERS: PCP Internal Medicine; Visit Provider Nurse Practitioner | DX: R10.12 Left upper quadrant pain (principal); K22.10 Ulcer of esophagus without bleeding | CPT/HCPCS: 99212 ==

== ENCOUNTER 2022-06-13 12:50 | Outpatient (REF) | payer OTHER, SELFPAY ==
--- NOTE | ~2022-06-13 | MM_ITS ---
EXAMINATION: MM DIAGNOSTIC DIGITAL BREAST TOMOSYNTHESIS, BILATERAL CLINICAL INFORMATION: Due for yearly. Also follow-up probable benign calcifications bilateral breast, initially noted at new baseline mammography 06/05/2021. Prior history benign right breast calcification biopsy performed in [place]. No known family history breast cancer. COMPARISON: Mammography: 12/10/2021, 06/12/2021, 06/05/2021 (new baseline, BI-RADS 0). TECHNIQUE: Digital breast tomosynthesis is performed in both the craniocaudal and mediolateral oblique views along with computer-aided detection (CAD). Synthesized 2D images are generated from the tomosynthesis. FINDINGS: There are scattered areas of fibroglandular density (ACR BI-RADS breast composition Category b). Parenchymal pattern is similar to prior studies and there is no developing density or interval mass or architectural abnormality. The axilla and skin contours are unremarkable. There is a biopsy clip marker again seen mid 6:00 right breast. The bilateral breast calcifications for follow-up are similar to prior diagnostic exams. The bilateral calcifications are similar in appearance. There is no focal increasing calcifications or interval pleomorphic types. The bilateral calcifications will be reassessed again in 12 months at time of next bilateral mammography. Results are provided to the patient at time of visit by the technologist. MM/MM tomosynthesis diagnostic BI IMPRESSION: -No significant changes from prior studies. -Probable scattered bilateral calcifications similar to prior diagnostic exams. ASSESSMENT: BI-RADS 3: Probably Benign RECOMMENDATION: Diagnostic mammography at time of next annual exam, due in 12 months. This patient's information was entered into a reminder system with a target due date for their next mammogram.
== END 2022-06-13 12:51 | disposition home or self-care (01) ==
LOC: HO.MAMMO 12:50
PROVIDERS: PCP Internal Medicine; Visit Provider Internal Medicine
DX: R92.1 Mammographic calcification found on diagnostic imaging of breast (principal)
CPT/HCPCS: 77062; 77066

== ENCOUNTER → 2022-06-28 16:02 | Outpatient (BNVA) | payer OTHER, SELFPAY | PROVIDERS: PCP Internal Medicine; Visit Provider Nurse Practitioner | DX: K22.10 Ulcer of esophagus without bleeding (principal); R10.9 Unspecified abdominal pain | CPT/HCPCS: 99212 ==

== ENCOUNTER → 2022-08-21 14:14 | Outpatient (BNVA) | payer OTHER, SELFPAY | PROVIDERS: Visit Provider Advanced Practice Midwife | DX: Z01.818 Encounter for other preprocedural examination (principal); Z01.419 Encounter for gynecological examination (general) (routine) without abnormal findings; K21.9 Gastro-esophageal reflux disease without esophagitis; K22.10 Ulcer of esophagus without bleeding; R10.10 Upper abdominal pain, unspecified; R10.9 Unspecified abdominal pain | CPT/HCPCS: 99212 ==

== ENCOUNTER 2022-09-06 09:54 | Outpatient (REF) | payer OTHER, SELFPAY ==
--- NOTE | ~2022-09-06 | US_ITS ---
EXAMINATION: US ABDOMEN COMPLETE CLINICAL INFORMATION: Upper abdominal pain, unspecified. COMPARISON: CT abdomen 02/06/2022. Ultrasound abdomen complete 12/21/2021. TECHNIQUE: Real-time imaging of the abdominal viscera. FINDINGS: Limited examination secondary to patient body habitus and shadowing from overlying bowel gas. PANCREAS: Normal. ABDOMINAL AORTA: The proximal, mid, and distal segments are normal in caliber. INFERIOR VENA CAVA: Visualized portions are normal. LIVER: Normal. The liver is normal in size. The liver contour is normal. Parenchymal echogenicity is normal. No focal hepatic lesion. There is no intrahepatic biliary duct dilatation seen. GALLBLADDER: Equivocal borderline gallbladder wall thickening, more noticeable along the anterior wall, measuring up to 0.4 cm in thickness. No shadowing stones. No pericholecystic free fluid. Negative Martinez's sign. No polyps. COMMON BILE DUCT: Normal in caliber measuring 0.4 cm in diameter. RIGHT KIDNEY: No hydronephrosis. No renal calculi or focal parenchymal lesions. The kidney measures 11.0 cm in maximum dimension. LEFT KIDNEY: No hydronephrosis. No renal calculi or focal parenchymal lesions. The kidney measures 11.4 cm in maximum dimension. SPLEEN: Normal. The spleen measures 10.0 cm in maximum dimension. FREE FLUID: None. US/US abdomen complete IMPRESSION: Borderline gallbladder wall thickening of uncertain etiology in the absence of additional sonographic findings to suggest acute cholecystitis. Recommend clinical correlation to determine if further evaluation with a CT abdomen or hepatobiliary nuclear medicine study should be obtained. Alternatively, a follow-up ultrasound in 3-6 months could be obtained to reassess.
== END 2022-09-06 09:55 | disposition home or self-care (01) ==
LOC: HO.HMGCX 09:54
PROVIDERS: PCP Internal Medicine; Visit Provider Nurse Practitioner
DX: R10.10 Upper abdominal pain, unspecified (principal)
CPT/HCPCS: 76700

== ENCOUNTER → 2022-09-12 08:57 | Outpatient (REF) | payer OTHER, SELFPAY ==
[2022-09-12 09:12] LABS: MANUAL DIFF FLAG NO
[2022-09-12 09:40] LABS: Basophils Absolute Auto 0.1 X10*3/uL (0.0-0.2); Basophils Percent Auto 0.5 % (0-2); Eosinophils Absolute Auto 0.3 X10*3/uL (0.0-0.4); Eosinophils Percent Auto 2.5 % (0-4); Hematocrit 44.6 % (37.0-47.0); Hemoglobin 14.4 g/dl (12.0-16.0); Imm Gran Abs Auto 0.03 X10*3/uL (0.00-0.03); Imm Gran Pct Auto 0.3 % (0.0-0.4); Lymphocytes Absolute Auto 3.2 X10*3/uL (1.2-4.9); Lymphocytes Percent Auto 31.3 % (20-40); Mean Corpuscular HGB Conc 32.3 g/dl (31.0-35.0); Mean Corpuscular Hemoglobin 28.4 pg (27.0-33.0); Monocytes Absolute Auto 0.9 X10*3/uL (0.1-1.2); Monocytes Percent Auto 9.1 % (2-11); Neutrophils Absolute Auto 5.8 x10*3/uL (2.0-8.3); Neutrophils Percent Auto 56.3 % (45-73); Platelet Count 327 X10*3/uL (160-400); Red Blood Count 5.07 X10*6/uL (4.20-5.50); Red Cell Distribution Width 13.7 % (11.0-16.0); White Blood Count 10.3 X10*3/uL (4.8-10.8)
[2022-09-12 09:55] LABS: Alanine Aminotransferase 16 U/L (0-31); Albumin Level 3.9 g/dL (3.5-5.0); Alkaline Phosphatase 126 U/L (39-117); Anion Gap 12 (12-20); Aspartate Amino Transferase 14 U/L (5-31); Bilirubin Total 0.6 mg/dL (0.0-1.0); Blood Urea Nitrogen 27 mg/dL (9-16); Carbon Dioxide 30 mmol/L (22-29); Chloride 104 mmol/L (96-108); Estimated Glomerular Filt Rate > 60; Glucose Random 113 mg/dL (60-115); Potassium 5.3 mmol/L (3.3-5.1); Sodium 141 mmol/L (135-145); Total Protein 7.4 g/dL (6.5-8.0)
== END ==
LOC: HO.SL 08:57
PROVIDERS: Absent Provider Nurse Practitioner; PCP Internal Medicine; Visit Provider Internal Medicine
DX: Z01.818 Encounter for other preprocedural examination (principal); R06.81 Apnea, not elsewhere classified; R10.10 Upper abdominal pain, unspecified
CPT/HCPCS: 36415; 80053; 85025

== ENCOUNTER 2022-09-12 09:23 | Outpatient (REF) | payer OTHER, SELFPAY | END 2022-09-12 09:24 | disposition home or self-care (01) | LOC: HO.LNP 09:23 | PROVIDERS: Visit Provider Nurse Practitioner | DX: Z01.818 Encounter for other preprocedural examination (principal); R10.10 Upper abdominal pain, unspecified; Z11.0 Encounter for screening for intestinal infectious diseases | CPT/HCPCS: 87338 ==

== ENCOUNTER → 2022-09-18 16:09 | Outpatient (BNVA) | payer OTHER, SELFPAY | PROVIDERS: PCP Internal Medicine; Visit Provider Nurse Practitioner | DX: R93.5 Abnormal findings on diagnostic imaging of other abdominal regions, including retroperitoneum (principal); R10.10 Upper abdominal pain, unspecified; R10.9 Unspecified abdominal pain; K21.9 Gastro-esophageal reflux disease without esophagitis; K22.10 Ulcer of esophagus without bleeding | CPT/HCPCS: 99212 ==

== ENCOUNTER → 2022-10-11 10:54 | Outpatient (REF) | payer OTHER, SELFPAY ==
--- NOTE | ~2022-10-11 | NM_ITS ---
EXAMINATION: HIDA SCAN WITH CCK. CLINICAL INFORMATION: Upper abdominal pain. Mild wall thickening measuring 0.4 cm COMPARISON: Ultrasound abdomen complete TECHNIQUE: 5 mCi of mebrofenin labeled technologist and technetium was injected followed by 1.5 mcg of CCK given at 75 minutes into the exam. Images from 0 to 1 hour were not obtained due to technical problems. FINDINGS: Following intravenous administration of 5 mCi of 90 9M technetium mebrofenin, imaging images were not obtained up to one hour due to technical prominence. At 1 hour there is visualization of gallbladder consistent cystic duct patency. 1.5 mcg of CCK was then given at 75 minutes into the exam. There is complete emptying of the gallbladder. Gallbladder ejection fraction at 10 minutes measures 86%. NM/NM hepatobiliary w pharm IMPRESSION: Patent cystic duct. Normal gallbladder ejection fraction of 86% at 10 minutes.
== END ==
LOC: HO.NUCMED 10:54
PROVIDERS: PCP Internal Medicine; Visit Provider Nurse Practitioner
DX: R10.10 Upper abdominal pain, unspecified (principal); R93.5 Abnormal findings on diagnostic imaging of other abdominal regions, including retroperitoneum
CPT/HCPCS: 78227; A9537; J2805

== ENCOUNTER 2022-10-22 15:10 | Outpatient (REF) | payer OTHER, SELFPAY ==
--- NOTE | ~2022-10-22 | MR_ITS ---
EXAMINATION: MR ABDOMEN WITHOUT AND WITH CONTRAST CLINICAL INFORMATION: 2 cm isoechoic rounded mass lower pole right kidney. Abnormal ultrasound. COMPARISON: Portions of a previous ultrasound 09/06/2022. TECHNIQUE: MR abdomen was performed without and with use of 7.5 mL intravenous Gadavist gadolinium contrast. Postcontrast images are performed in multiphase dynamic sequences. Imaging was performed in 3 planes. FINDINGS: Patient habitus is not well suited to the coil. There is motion artifact. There is artifact related to spinal instrumentation. LUNG BASES: No suspicious abnormality in the visualized lower chest LIVER, GALLBLADDER, AND BILIARY TREE: The right lobe of the liver measures 13.9 cm. This is close to the mean expected. There is no suspicious focal liver lesion. The liver contour appears smooth. No cholelithiasis. No biliary dilation. PANCREAS: No suspicious abnormality of the pancreas. SPLEEN: The spleen measures approximately 9.7 cm which is close to the mean expected. No suspicious focal lesion. ADRENAL GLANDS: No suspicious abnormality. KIDNEYS AND URETERS: The left kidney measures at least 11.7 cm in greatest length. The right kidney measures at least 9.7 cm in greatest length. There is no dilation of the intrarenal collecting system on either side. The nephrograms are homogeneous and symmetric. There is no suspicious renal mass. Specifically, there is no signal abnormality or mass which might correspond to the finding on ultrasound 12/21/2021. GASTROINTESTINAL TRACT: I suspect a hiatal hernia. No evidence of small bowel obstruction. No abnormal mucosal hyperenhancement. ABDOMINAL WALL: No significant hernia is appreciated. LYMPH NODES: There are no measurably enlarged lymph nodes demonstrated. VASCULAR: There is no abdominal aortic aneurysm. The portal vein enhances. OSSEOUS STRUCTURES: Extensive artifact related to spinal instrumentation. No suspicious marrow signal abnormality. MR/MR abdomen wo/w con IMPRESSION: No etiology for flank pain demonstrated. No right renal mass demonstrated.
== END 2022-10-22 15:11 | disposition home or self-care (01) ==
LOC: HO.MRI 15:10
PROVIDERS: PCP Internal Medicine; Visit Provider Internal Medicine Gastroenterology
DX: R93.421 Abnormal radiologic findings on diagnostic imaging of right kidney (principal)
CPT/HCPCS: 74183; A9585

== ENCOUNTER → 2022-10-23 14:08 | Outpatient (REF) | payer OTHER, SELFPAY | LOC: HO.SL 14:08 | PROVIDERS: PCP Internal Medicine; Visit Provider Internal Medicine | DX: G47.33 Obstructive sleep apnea (adult) (pediatric) (principal) | CPT/HCPCS: 95806 ==

== ENCOUNTER → 2022-11-15 15:56 | Outpatient (BNVA) | payer OTHER, SELFPAY | PROVIDERS: PCP Internal Medicine; Visit Provider Nurse Practitioner | DX: R10.10 Upper abdominal pain, unspecified (principal); K21.9 Gastro-esophageal reflux disease without esophagitis; R93.5 Abnormal findings on diagnostic imaging of other abdominal regions, including retroperitoneum; R14.0 Abdominal distension (gaseous); Z79.899 Other long term (current) drug therapy | CPT/HCPCS: 99212 ==

== ENCOUNTER 2022-12-25 09:38 | Outpatient (REF) | payer OTHER, SELFPAY ==
--- NOTE | ~2022-12-25 | XR_ITS ---
EXAMINATION: XR CHEST CLINICAL INFORMATION: Chest pain. COMPARISON: 08/31/2021 and studies dating back to 08/23/2019 TECHNIQUE: 2 views of the chest were obtained. FINDINGS: No significant abnormality is noted involving the heart, lungs, mediastinum, bony thorax or soft tissues. There is degenerative marginal spurring seen at multiple levels in the thoracic spine. There is a bone island or calcific granuloma noted within the right upper lung overlying the posterior aspect of the left fifth rib. Status post left shoulder arthroplasty. Degenerative change of the right shoulder evident. XR/XR chest 2V IMPRESSION: No significant acute parenchymal disease.
== END 2022-12-25 09:39 | disposition home or self-care (01) ==
LOC: HO.XRAY 09:38
PROVIDERS: PCP Internal Medicine; Visit Provider Internal Medicine
DX: R07.9 Chest pain, unspecified (principal)
CPT/HCPCS: 71046

== ENCOUNTER 2023-04-02 10:36 | Outpatient (AMB) | payer OTHER, SELFPAY ==
--- NOTE | 2023-04-02 10:43 | A.OFFPC_ITS ---
Vital Signs 04/02/23 10:46 Height 5 ft 2 in Weight 170 lb BMI 31.1 BP 120/68 Blood Pressure Location Lt brachial Position Sitting Pulse 82 Pulse Source Pulse Oximeter Pulse Oximetry (%) 95 Oxygen Delivery Method Room Air Intake Visit Reasons: Cataract surgery R eye 04/08 L eye 04/22 Intake Note: Patient is here for a Pre-op for cataract surgery scheduled with [facility] enter on right eye 04/08/23, left eye 04/22/23. Consultant In Ergonomics And Safety Required: Yes Consultant In Ergonomics And Safety Language: Behavior Therapist Name: Zandra ([id number]) Information Interpreted: non-clinical & clinical Accompanied by: Self / Same As Patient Allergies No Known Allergies Allergy (Verified 04/02/23 10:46) Medication List - Last Reconciled 04/02/23 by Angel Peraza MD albuterol sulfate 90 mcg/actuation 2 inhalations inhalation Q6H PRN albuterol sulfate 2.5 mg (3 mL) inhalation Q4H PRN [biotin PO DAILY] cholecalciferol (vitamin D3) 25 mcg PO DAILY dicyclomine 20 mg PO QID gabapentin (Neurontin) 800 mg PO TID levothyroxine 75 mcg PO QAM lisinopril 20 mg PO DAILY lorazepam 0.5 mg PO BID PRN omega-3 fatty acids 1,000 mg PO DAILY pantoprazole (Protonix) 40 mg PO BID 30 days peg 3350-electrolytes 236-22.74-6.74 -5.86 gram (Golytely) 240 mL PO Q10M 1 day [probiotic PO DAILY] simvastatin 10 mg PO DAILY Tobacco use date assessed: 04/02/23 Fall risk assessment: No Falls in past year Last assessed Fall Risk: 04/02/23 Dental Screening Dental Screen Date: 04/02/23 Did you have a dental visit in the last 12 months?: Yes Did you have a dental problem in the last 6 months where you did not have access to dental care?: No Was dental information given to patient?: Patient has dentist HPI Cataract surgery R eye 04/08 L eye 04/22 HPI Details having bilat cataracts repaired; has controlled asthma, hypothyroidism, hypertension, hyperlipidemia and gerd; no history of CAD [facility] Medical History Adult general medical exam Encounter for gynecological examination with Papanicolaou smear of cervix Eye exam, routine High cholesterol Hypertension Hypothyroidism Obesity Post-menopausal Screening for breast cancer Screening for colon cancer Screening for diabetes mellitus Surgical History History of back surgery History of section History of colonoscopy History of hysterectomy History of total right knee replacement Status post total replacement of left shoulder Family History Father No problems noted. Mother No problems noted. Sister Glaucoma Social History Housing: Apartment Alcohol intake: never Patient Tobacco Use Status: Never used Tobacco e-Cigarette/Vaping Use: Never Used Second Hand Smoke Exposure: No service: No Current occupational status: retired Cognitive needs: No Hearing needs: No Vision needs: Yes Questionnaire Thrive Questionnaire Date Thrive assessed: 04/02/23 I am a: Patient What is your living situation today?: I have a steady place to live Within the past 12 months, did the food you bought not last and you didn't have the money to get more?: Never true Within the past 12 months, did you worry whether your food would run out before you got money to buy more?: Never true Do you have trouble paying for medicines?: No Do you have trouble getting transportation to medical appointments?: No Do you have trouble paying your heating and electricity bill?: No Do you have trouble taking care of your child, family member or friend?: No Do you have trouble with day-to-day activities such as bathing, preparing meals, shopping, managing finances, etc.?: No Are you currently unemployed and looking for a job?: No Are you interested in more education?: No Currently or been in a relationship where the following occur: no concerns reported AUDIT C Alcohol Use Questionnaire (AUDIT-C) 1. How often do you have a drink containing alcohol?: Never Total Score: 0 CARRIE-7 AMB Questionnaire CARRIE-7 Date CARRIE - 7 assessed: 04/02/23 Feeling nervous, anxious, or on edge: 0 = Not at all Not being able to stop or control worryin = Not at all Worrying too much about different things: 0 = Not at all Trouble relaxin = Not at all Being so restless that it is hard to sit still: 0 = Not at all Becoming easily annoyed or irritable: 0 = Not at all Feeling afraid as if something awful might happen: 0 = Not at all Total CARRIE-7 score (0-4 normal; 5-9 mild; 10-14 moderate; 15-21 severe): 0 Source: Developed by Drs. Gordon Shi, Duyen Levine, Chirag Cole and colleagues, with an educational moshe from [employer]. Review of Systems Const Denies chills, Denies fatigue, Denies headache(s) and Denies weight loss Eyes Denies change in vision, Denies diplopia and Denies eye pain ENT Denies vertigo, Denies dizziness, Denies headache(s) and Denies nasal discharge Card Denies chest pain, Denies rapid heart rate and Denies dyspnea on exertion Resp Denies chest congestion, Denies cough, Denies pain with cough and Denies dyspnea on exertion GI Denies abdominal pain, Denies hematochezia and Denies change in bowel habits Musc Denies myalgias, Denies arthralgias and Denies joint swelling Skin/Breast Denies lesions and Denies unusual bruising Neuro Denies vertigo, Denies dizziness, Denies headache(s) and Denies focal weakness Endo Denies fatigue Physical exam (Primary Care) Vital Signs: Last Vital Signs Pulse 82 04/02/23 10:46 BP 120/68 04/02/23 10:46 Pulse Ox 95 04/02/23 10:46 Oxygen Delivery Method Room Air 04/02/23 10:46 BMI result Body Mass Index 31.1 Tobacco/Smoking Status: Tobacco use Status Tobacco use date assessed 04/02/23 04/02/23 10:55 Patient Tobacco Use Status Never used Tobacco 04/02/23 10:55 e-Cigarette/Vaping Use Never Used 04/02/23 10:55 Thrive Assessment: Date of Thrive Assessment Date Thrive assessed 04/02/23 04/02/23 10:55 Currently or been in a relationship where the following occur: no concerns reported Const General: cooperative, healthy appearing and no acute distress Orientation/consciousness: oriented to person, oriented to place and oriented to time HENUT Head: Yes normal to inspection, Yes normocephalic and Yes atraumatic Mouth: Normal oral and palatal mucosa present and tongue normal Throat: Yes posterior oropharynx normal and Yes uvula midline Eyes General: appearance normal, both eyes and all related structures Neck Neck: Yes normal visual inspection, Yes full ROM and Yes no lymphadenopathy Thyroid: Thyroid normal Carotids: normal carotid upstroke Chest Chest palpation & inspection: normal inspection of the chest Resp Effort & Inspection: normal respiratory effort and able to speak in complete sentences Auscultation: clear to auscultation bilaterally Cardio Jugular venous distension: no JVD Palpation: normal PMI Rate: regular rate Rhythm: regular rhythm Heart sounds: S1 normal heart sound present and S2 normal heart sound present GI Inspection: Yes normal to inspection Palpation (GI): Soft to palpation and No hepatosplenomegaly present Auscultation: normal bowel sounds General: Yes no CVA tenderness Back/Spine/Pelvis Back: no CVA tenderness Skin General skin exam: no rashes or lesions noted Neuro General: oriented to person, oriented to place and oriented to time Extrem General: Yes normal to inspection and Yes full ROM Assessment and Plan Assessment & Plan (1) Pre-op exam: Code(s): Z01.818 - Encounter for other preprocedural examination Plan: low risk of cardiovascular complications; cleared for surgery (2) Hypothyroidism: Code(s): E03.9 - Hypothyroidism, unspecified Plan: stable; same rx (3) Hypertension: Code(s): I10 - Essential (primary) hypertension Plan: stable; same rx (4) High cholesterol: Code(s): E78.00 - Pure hypercholesterolemia, unspecified Plan: stable; same rx Coding Level of Care Code Est Pt Level 4 (02267) Diagnoses Pre-op exam Z01.818 Hypothyroidism E03.9 Hypertension I10 High cholesterol E78.00
[2023-04-02 10:46] VITALS: BP 120/68; PULSE 82; O2SAT 95; BMI 31.1
== END 2023-04-02 11:07 | disposition home or self-care (01) ==
PROVIDERS: PCP Internal Medicine; Visit Provider Internal Medicine
DX: Z01.818 Encounter for other preprocedural examination (principal); E03.9 Hypothyroidism, unspecified; I10 Essential (primary) hypertension; E78.00 Pure hypercholesterolemia, unspecified
CPT/HCPCS: 99214

== ENCOUNTER 2023-05-19 12:47 | Outpatient (AMB) | payer OTHER, SELFPAY ==
--- NOTE | 2023-05-19 12:48 | MHC.PC.OV ---
Vital Signs 05/19/23 12:49 Height 5 ft 2 in Weight 167 lb BMI 30.5 BP 110/66 Blood Pressure Location Lt brachial Position Sitting Pulse 102 H Pulse Source Pulse Oximeter Pulse Oximetry (%) 96 Oxygen Delivery Method Room Air Intake Visit Reasons: PE Intake Note: Patient here for a physical exam Acoustical Logging Engineer Required: Yes Acoustical Logging Engineer Language: Hebrew Accompanied by: Self / Same As Patient Allergies No Known Allergies Allergy (Verified 05/19/23 12:51) Medication List - Last Reconciled 05/20/23 by Angel Peraza MD albuterol sulfate 90 mcg/actuation 2 inhalations inhalation Q6H PRN albuterol sulfate 2.5 mg (3 mL) inhalation Q4H PRN [biotin PO DAILY] cholecalciferol (vitamin D3) 25 mcg PO DAILY dicyclomine 20 mg PO QID gabapentin (Neurontin) 800 mg PO TID levothyroxine 75 mcg PO QAM lisinopril 20 mg PO DAILY lorazepam 0.5 mg PO BID PRN omega-3 fatty acids 1,000 mg PO DAILY pantoprazole 40 mg PO BID [probiotic PO DAILY] simvastatin 10 mg PO DAILY Tobacco use date assessed: 04/02/23 Fall risk assessment: No Falls in past year Last assessed Fall Risk: 05/19/23 Dental Screening Dental Screen Date: 05/19/23 Did you have a dental visit in the last 12 months?: No Did you have a dental problem in the last 6 months where you did not have access to dental care?: No Was dental information given to patient?: Patient has dentist HPI PE HPI Details HTN and hypothyroidism PFSH Medical History Adult general medical exam Encounter for gynecological examination with Papanicolaou smear of cervix Eye exam, routine High cholesterol Hypertension Hypothyroidism Obesity Post-menopausal Screening for breast cancer Screening for colon cancer Screening for diabetes mellitus Surgical History History of back surgery History of hysterectomy History of colonoscopy Status post total replacement of left shoulder History of section History of total right knee replacement Family History Father No problems noted. Mother No problems noted. Sister Glaucoma Social History (Reviewed 05/19/23 @ 12:53 by WE[facility] Housing: Apartment Alcohol intake: never Patient Tobacco Use Status: Never used Tobacco e-Cigarette/Vaping Use: Never Used Second Hand Smoke Exposure: No service: No Current occupational status: retired Cognitive needs: No Hearing needs: No Vision needs: Yes Questionnaire Thrive Questionnaire Date Thrive assessed: 04/02/23 CARRIE-7 AMB Questionnaire CARRIE-7 Date CARRIE - 7 assessed: 04/02/23 Source: Developed by Drs. Gordon Shi, Duyen Levine, Chirag Cole and colleagues, with an educational moshe from [employer]. Review of Systems Const Denies chills, Denies fatigue, Denies headache(s) and Denies weight loss Eyes Denies change in vision, Denies diplopia and Denies eye pain ENT Denies vertigo, Denies dizziness, Denies headache(s) and Denies nasal discharge Card Denies chest pain, Denies rapid heart rate and Denies dyspnea on exertion Resp Denies chest congestion, Denies cough, Denies pain with cough and Denies dyspnea on exertion GI Denies abdominal pain, Denies hematochezia and Denies change in bowel habits Musc Denies myalgias, Denies arthralgias and Denies joint swelling Skin/Breast Denies lesions and Denies unusual bruising Neuro Denies vertigo, Denies dizziness, Denies headache(s) and Denies focal weakness Endo Denies fatigue Physical exam (Primary Care) Vital Signs: Last Vital Signs Pulse 102 H 05/19/23 12:49 BP 110/66 05/19/23 12:49 Pulse Ox 96 05/19/23 12:49 Oxygen Delivery Method Room Air 05/19/23 12:49 BMI result Body Mass Index 30.5 Tobacco/Smoking Status: Tobacco use Status Tobacco use date assessed 04/02/23 05/19/23 12:54 Patient Tobacco Use Status Never used Tobacco 05/19/23 12:54 e-Cigarette/Vaping Use Never Used 05/19/23 12:54 Thrive Assessment: Date of Thrive Assessment Date Thrive assessed 04/02/23 05/19/23 12:54 Const General: cooperative, healthy appearing and no acute distress Orientation/consciousness: oriented to person, oriented to place and oriented to time HENNV Head: Yes normal to inspection, Yes normocephalic and Yes atraumatic Mouth: Normal oral and palatal mucosa present and tongue normal Throat: Yes posterior oropharynx normal and Yes uvula midline Eyes General: appearance normal, both eyes and all related structures Neck Neck: Yes normal visual inspection, Yes full ROM and Yes no lymphadenopathy Thyroid: Thyroid normal Carotids: normal carotid upstroke Chest Chest palpation & inspection: normal inspection of the chest Resp Effort & Inspection: normal respiratory effort and able to speak in complete sentences Auscultation: clear to auscultation bilaterally Cardio Jugular venous distension: no JVD Palpation: normal PMI Rate: regular rate Rhythm: regular rhythm Heart sounds: S1 normal heart sound present and S2 normal heart sound present GI Inspection: Yes normal to inspection Palpation (GI): Soft to palpation and No hepatosplenomegaly present Auscultation: normal bowel sounds General: Yes no CVA tenderness Back/Spine/Pelvis Back: no CVA tenderness Skin General skin exam: no rashes or lesions noted Neuro General: oriented to person, oriented to place and oriented to time Extrem General: Yes normal to inspection and Yes full ROM Assessment and Plan Assessment & Plan (1) Physical exam: Code(s): Z00.00 - Encounter for general adult medical examination without abnormal findings Plan: do labs (2) Hypertension: Code(s): I10 - Essential (primary) hypertension Plan: stable; same rx (3) Hypothyroidism: Code(s): E03.9 - Hypothyroidism, unspecified Plan: stable; same rx Orders: Orders Complete Blood Count Auto Diff 05/19/23 D64.9 - Anemia, unspecified Comprehensive [place]. Panel Fast 05/19/23 N28.9 - Disorder of kidney and ureter, unspecified Lipid Panel 05/19/23 E78.5 - Hyperlipidemia, unspecified Thyroid Stimulating Hormone 05/19/23 E03.9 - Hypothyroidism, unspecified Coding Level of Care Code Est Pt Prev Care >65y(24372) Diagnoses Physical exam Z00.00 Hypertension I10 Hypothyroidism E03.9
[2023-05-19 12:49] VITALS: BP 110/66; PULSE 102; O2SAT 96; BMI 30.5
== END 2023-05-19 13:05 | disposition home or self-care (01) ==
PROVIDERS: Visit Provider Internal Medicine
DX: Z00.00 Encounter for general adult medical examination without abnormal findings (principal); I10 Essential (primary) hypertension; E03.9 Hypothyroidism, unspecified
CPT/HCPCS: 99397

== ENCOUNTER 2023-06-19 15:31 | Outpatient (AMB) | payer OTHER, SELFPAY ==
[2023-06-19 15:36] VITALS: BP 151/82; PULSE 80; BMI 31.8
--- NOTE | 2023-06-19 15:36 | A.OFFVIS_ITS ---
Intake Vital Signs 06/19/23 15:36 Height 5 ft 2 in Weight 173 lb 11.588 oz BMI 31.8 BP 151/82 H Blood Pressure Location Lt brachial Position Sitting Pulse 80 Intake Visit Reasons: 6 month follow up Intake Note: Patient returns in 6 months follow up of GERD. CC: Patient reports she has been doing a lot better with medications. Denies having any new GI symptoms. Social Insurance Analyst Required: Yes Accompanied by: Self / Same As Patient Allergies No Known Allergies Allergy (Verified 06/19/23 15:42) HPI 6 month follow up HPI Details Assessment & Plan (1) GERD (gastroesophageal reflux diseas e): Code(s): K21.9 - Gastro-esophageal reflux disease without esophagitis Plan: . SHe is doing generally better with the dicyclomine and the bid protonix. But she admits she forgets the second dose, yet any remaining discomfort is in her mid epi area at night and this is when she has a lot of gas and bloating. Will add simethicone and encourage her to try to take th protonix befoer supper. ROV 6 mos (as she is going to [place] for the summer). (2) Upper abdominal pain: Comment: with bloating Code(s): R10.10 - Upper abdominal pain, unspecified (3) Abnormal US (ultrasound) of abdomen: Comment: US 09/06/2022 possible GB wall thickening, not borne out by MRI or HIDA scan Code(s): R93.5 - Abnormal findings on diagnostic imaging of other abdominal regions, including retroperitoneum (4) Abdominal bloating: Code(s): R14.0 - Abdominal distension (gaseous) Medications: New simethicone aft er meals 180 mg PO .tidac 30 days 90 caps 6R F R14.0 - Abdominal distension (gaseou s) Refilled dicyclomine 20 mg PO QID 120 tabs 6RF pantoprazole (Prot nakia) 40 mg PO BID 30 d ays 60 tabs 6RF K22.10 - Ulcer of esophagus without bleeding COLONOSCOPY NOT YET SCHEDULED OR OBTAINED BIOPSY TODAY'S VISIT [place] #Deb Live Sent another note. ? if [place] [facility] [place] She continues to do much better with her GI medications. She did receive the simethicone and finds it helpful; but she still will have episodes of bloating and she has not noticed if any food causes it and it is only happening occasi onally now. Will give FODMAP list for he consideration. She has changed to almond milk form whole milk ROV 6 mos. [facility] Medical History Obesity Encounter for gynecological examination with Papanicolaou smear of cervix Adult general medical exam Eye exam, routine Post-menopausal Screening for breast cancer Screening for colon cancer Screening for diabetes mellitus Hypothyroidism Hypertension High cholesterol Surgical History History of back surgery History of hysterectomy History of colonoscopy Status post total replacement of left shoulder History of section History of total right knee replacement Family History Father No problems noted. Mother No problems noted. Sister Glaucoma Social History Housing: Apartment Alcohol intake: never Patient Tobacco Use Status: Never used Tobacco e-Cigarette/Vaping Use: Never Used Second Hand Smoke Exposure: No service: No Current occupational status: retired Cognitive needs: No Hearing needs: No Vision needs: Yes Review of Systems Const Denies fatigue, Denies fever(s), Denies night sweats, Denies poor appetite and Denies weight loss ENT Reports Normal hearing present, Denies dental pain, Denies dysphagia, Denies hearing loss, Denies mouth pain, Denies odynophagia, Denies throat swelling, Denies tongue swelling and Reports other (Dentition adequate) Card Reports no additional complaints Resp Reports no additional complaints GI Denies abdominal pain, Denies melena, Reports bloating, Denies hematochezia, Denies constipation, Reports GI cramping, Denies dysphagia, Denies excessive flatus, Denies early satiety, Reports heartburn, Reports diarrhea, Denies nausea, Denies odynophagia, Denies vomiting and Denies hematemesis Skin/Breast Denies pruritus, Denies lesions, Denies rash and Denies jaundice Neuro Reports Normal hearing present and Denies Abnormal speech present Endo Denies fatigue Aller/Immun Denies throat swelling and Denies tongue swelling Physical Exam Vital Signs: Last Vital Signs Pulse 80 06/19/23 15:36 BP 151/82 H 06/19/23 15:36 BMI result Body Mass Index 31.8 Const General: cooperative, no acute distress, well developed and well groomed Nutritional Appearance: well nourished and obese Orientation/consciousness: oriented to person, oriented to place and oriented to time Limitations: No language barrier HEENT Head: Yes normocephalic and Yes atraumatic Eyes General: appearance normal, both eyes and all related structures Pupils: Equal, round and reactive pupils present Neck Neck: Yes normal visual inspection and Yes no lymphadenopathy Thyroid: Thyroid normal Resp Effort & Inspection: normal respiratory effort and able to speak in complete sentences Auscultation: clear to auscultation bilaterally Cardio Rate: regular rate Rhythm: regular rhythm Heart sounds: Normal, physiologic split S2 sound present Peripheral pulses: radial pulses present and posterior tibial pulses present GI Inspection: No distended and No Abdominal panniculus present Palpation (GI): Soft to palpation, nontender, no guarding, not rigid and No hepatosplenomegaly present Percussion: Yes normal to percussion Auscultation: normal bowel sounds Rectal Exam - Female: deferred Skin General skin exam: no rashes or lesions noted, turgor normal, skin not dry, no jaundice, No spider nevi and no striae Rashes: no rashes Nails: normal Neuro General: oriented to person, oriented to place and oriented to time Cranial nerves: Yes Equal, round and reactive pupils present and Yes Normal hearing present Speech: No Abnormal speech present Extrem General: Yes normal to inspection, No clubbing, No cyanosis and No edema Psych Appearance: grossly normal and well kempt Mental Status: mental status grossly normal Speech and movement: Normal speech and movement present Affect: normal affect Attitude: cooperative Thought process: Normal thought process present and not confabulating Thought content: Normal thought content present Insight: Limited insight present (Psych) Judgement: Limited judgement present (Psych) Assessment & Plan Assessment & Plan (1) GERD (gastroesophageal reflux disease): Code(s): K21.9 - Gastro-esophageal reflux disease without esophagitis (2) Upper abdominal pain: Code(s): R10.10 - Upper abdominal pain, unspecified (3) Abdominal bloating: Code(s): R14.0 - Abdominal distension (gaseous) Plan COLONOSCOPY NOT YET SCHEDULED OR OBTAINED BIOPSY TODAY'S VISIT [place] #Deb Charles Sent another note. ? if [place] [facility] [place] She continues to do much better with her GI medications. She did receive the simethicone and finds it helpful; but she still will have episodes of bloating and she has not noticed if any food causes it and it is only happening occasionally now. Will give FODMAP list for he consideration. She has changed to almond milk form whole milk. She continues on her pantoprazole on her dicyclomine. ROV 6 mos. Medications: New simethicone 180 mg PO TID 90 caps 6RF Refilled dicyclomine 20 mg PO QID 120 tabs 6RF pantoprazole 40 mg PO BID 60 tabs 1RF K22.10 - Ulcer of esophagus without bleeding Coding Level of Care Code Est Pt Level 3 (11168) Diagnoses GERD (gastroesophageal reflux disease) K21.9 Upper abdominal pain R10.10 Abdominal bloating R14.0
== END 2023-06-19 15:59 | disposition home or self-care (01) ==
PROVIDERS: Visit Provider Nurse Practitioner
DX: K21.9 Gastro-esophageal reflux disease without esophagitis (principal); R10.10 Upper abdominal pain, unspecified; R14.0 Abdominal distension (gaseous)
CPT/HCPCS: 99213

== ENCOUNTER → 2023-06-19 15:31 | Outpatient (BNVA) | payer OTHER, SELFPAY | PROVIDERS: Visit Provider Nurse Practitioner | DX: K21.9 Gastro-esophageal reflux disease without esophagitis (principal); R10.10 Upper abdominal pain, unspecified; R14.0 Abdominal distension (gaseous) | CPT/HCPCS: 99212 ==

== ENCOUNTER 2023-08-19 07:43 | Outpatient (REF) | payer OTHER, SELFPAY ==
[2023-08-19 08:01] LABS: MANUAL DIFF FLAG NO
[2023-08-19 08:27] LABS: Basophils Absolute Auto 0.1 X10*3/uL (0.0-0.2); Eosinophils Absolute Auto 0.3 X10*3/uL (0.0-0.4); Hematocrit 41.1 % (37.0-47.0); Hemoglobin 13.3 g/dl (12.0-16.0); Imm Gran Abs Auto 0.01 X10*3/uL (0.00-0.03); Imm Gran Pct Auto 0.1 % (0.0-0.4); Lymphocytes Absolute Auto 2.7 X10*3/uL (1.2-4.9); Lymphocytes Percent Auto 39.6 % (20-40); Mean Corpuscular HGB Conc 32.4 g/dl (31.0-35.0); Mean Corpuscular Hemoglobin 28.7 pg (27.0-33.0); Mean Corpuscular Volume 88.6 fL (80.0-98.0); Mean Platelet Volume 10.9 fL (9.4-12.3); Monocytes Absolute Auto 0.6 X10*3/uL (0.1-1.2); Monocytes Percent Auto 9.5 % (2-11); Neutrophils Absolute Auto 3.1 x10*3/uL (2.0-8.3); Neutrophils Percent Auto 45.8 % (45-73); Platelet Count 305 X10*3/uL (160-400); Red Blood Count 4.64 X10*6/uL (4.20-5.50); White Blood Count 6.7 X10*3/uL (4.8-10.8)
[2023-08-19 09:07] LABS: Alanine Aminotransferase 17 U/L (0-31); Albumin Level 3.8 g/dL (3.5-5.0); Alkaline Phosphatase 102 U/L (39-117); Anion Gap 10 (12-20); Aspartate Amino Transferase 18 U/L (5-31); Bilirubin Total 0.4 mg/dL (0.0-1.0); Blood Urea Nitrogen 20 mg/dL (9-16); Calcium 9.4 mg/dL (8.4-10.2); Carbon Dioxide 27 mmol/L (22-29); Chloride 108 mmol/L (96-108); Cholesterol 171 mg/dL (<200); Estimated Glomerular Filt Rate > 60; Glucose Fasting 107 mg/dL (60-99); HDL Cholesterol 34 mg/dL (>40); LDL Cholesterol Calculated 101 mg/dL (<100); Potassium 4.3 mmol/L (3.3-5.1); Sodium 141 mmol/L (135-145); Total Protein 7.5 g/dL (6.5-8.0); Triglycerides 183 mg/dL (<150)
[2023-08-19 09:25] LABS: Thyroid Stimulating Hormone 2.15 uIU/mL (0.32-4.0)
== END 2023-08-19 07:44 | disposition home or self-care (01) ==
LOC: HO.LAB 07:43
PROVIDERS: PCP Internal Medicine; Visit Provider Internal Medicine
DX: E03.9 Hypothyroidism, unspecified (principal); D64.9 Anemia, unspecified; N28.9 Disorder of kidney and ureter, unspecified; E78.5 Hyperlipidemia, unspecified
CPT/HCPCS: 36415; 80053; 80061; 84443; 85025

== ENCOUNTER 2023-08-19 11:35 | Outpatient (AMB) | payer OTHER, SELFPAY ==
[2023-08-19 11:36] VITALS: BP 122/80; PULSE 82; O2SAT 98; BMI 32.7
--- NOTE | 2023-08-19 11:36 | A.OFFPC_ITS ---
Vital Signs 08/19/23 11:36 Height 5 ft 2 in Weight 179 lb BMI 32.7 BP 122/80 Blood Pressure Location Lt brachial Position Sitting Pulse 82 Pulse Source Pulse Oximeter Pulse Oximetry (%) 98 Oxygen Delivery Method Room Air Intake Visit Reasons: 3mth f/u Director Project Management Required: Yes Attending Pathologist: Not Required per policy Accompanied by: Self / Same As Patient Allergies No Known Allergies Allergy (Verified 08/19/23 11:36) Medication List - Last Reconciled 08/19/23 by Angel Peraza MD albuterol sulfate 90 mcg/actuation 2 inhalations inhalation Q6H PRN albuterol sulfate 2.5 mg (3 mL) inhalation Q4H PRN [biotin PO DAILY] cholecalciferol (vitamin D3) 25 mcg PO DAILY dicyclomine 20 mg PO QID gabapentin (Neurontin) 800 mg PO TID levothyroxine 75 mcg PO QAM lisinopril 20 mg PO DAILY lorazepam 0.5 mg PO BID PRN omega-3 fatty acids 1,000 mg PO DAILY pantoprazole 40 mg PO BID [probiotic PO DAILY] simethicone 180 mg PO TID simvastatin 10 mg PO DAILY Tobacco use date assessed: 08/19/23 Fall risk assessment: No Falls in past year Last assessed Fall Risk: 08/19/23 Dental Screening Dental Screen Date: 08/19/23 Did you have a dental visit in the last 12 months?: Yes Did you have a dental problem in the last 6 months where you did not have access to dental care?: No Was dental information given to patient?: Patient has dentist HPI 3mth f/u HPI Details hypothyroidism on rx; doing well and compliant [facility] Medical History Obesity Encounter for gynecological examination with Papanicolaou smear of cervix Adult general medical exam Eye exam, routine Post-menopausal Screening for breast cancer Screening for colon cancer Screening for diabetes mellitus Hypothyroidism Hypertension High cholesterol Surgical History History of back surgery History of hysterectomy History of colonoscopy Status post total replacement of left shoulder History of section History of total right knee replacement Family History Father No problems noted. Mother No problems noted. Sister Glaucoma Social History Housing: Apartment Alcohol intake: never Patient Tobacco Use Status: Never used Tobacco e-Cigarette/Vaping Use: Never Used Second Hand Smoke Exposure: No service: No Current occupational status: retired Cognitive needs: No Hearing needs: No Vision needs: Yes Questionnaire PHQ-9 Over the last 2 weeks, how often have you been bothered by any of the following problems? 1. Little interest or pleasure in doing things: not at all 2. Feeling down, depressed, or hopeless: not at all 3. Trouble falling or staying asleep, or sleeping too much: not at all 4. Feeling tired or having little energy: not at all 5. Poor appetite or overeating: not at all 6. Feeling bad about yourself - or that you are a failure or have let yourself or your family down: not at all 7. Trouble concentrating on things, such as reading the newspaper or watching television: not at all 8. Moving or speaking so slowly that other people could have noticed. Or the opposite - being so fidgety or restless that you have been moving around a lot more than usual: not at all 9. Thoughts that you would be better off or of hurting yourself in some way: not at all Total score: 0 Depression Screening Interpretation: Negative Depression Screening Done: Yes 77284 - PHQ-9 Billing: Yes Source: Developed by Drs. Gordon Shi, Duyen Levine, Chirag Cole and colleagues, with an educational moshe from [employer]. Thrive Questionnaire Date Thrive assessed: 08/19/23 I am a: Patient What is your living situation today?: I have a steady place to live Within the past 12 months, did the food you bought not last and you didn't have the money to get more?: Never true Within the past 12 months, did you worry whether your food would run out before you got money to buy more?: Never true Do you have trouble paying for medicines?: No Do you have trouble getting transportation to medical appointments?: No Do you have trouble paying your heating and electricity bill?: No Do you have trouble taking care of your child, family member or friend?: No Do you have trouble with day-to-day activities such as bathing, preparing meals, shopping, managing finances, etc.?: No Are you currently unemployed and looking for a job?: No Are you interested in more education?: No Please select the resources that you would like help with: None AUDIT C Alcohol Use Questionnaire (AUDIT-C) 1. How often do you have a drink containing alcohol?: Never Total Score: 0 CARRIE-7 AMB Questionnaire CARRIE-7 Date CARRIE - 7 assessed: 08/19/23 Feeling nervous, anxious, or on edge: 0 = Not at all Not being able to stop or control worryin = Not at all Worrying too much about different things: 0 = Not at all Trouble relaxin = Not at all Being so restless that it is hard to sit still: 0 = Not at all Becoming easily annoyed or irritable: 0 = Not at all Feeling afraid as if something awful might happen: 0 = Not at all Total CARRIE-7 score (0-4 normal; 5-9 mild; 10-14 moderate; 15-21 severe): 0 Source: Developed by Drs. Gordon Shi, Duyen Levine, Chirag Cole and colleagues, with an educational moshe from [employer]. CARRIE-7 Assessment Billing CARRIE-7 Assessment Tool: CARRIE-7 Assessment 06374 Review of Systems Const Denies chills, Denies headache(s) and Denies weight loss ENT Denies headache(s) Card Denies chest pain, Denies syncope, Denies irregular heart rhythm and Denies dyspnea Resp Denies chest congestion, Denies cough and Denies dyspnea GI Denies abdominal pain, Denies change in stool character, Denies nausea and Denies vomiting Musc Denies deformity and Denies joint swelling Neuro Denies syncope and Denies headache(s) Physical exam (Primary Care) Vital Signs: Last Vital Signs Pulse 82 08/19/23 11:36 BP 122/80 08/19/23 11:36 Pulse Ox 98 08/19/23 11:36 Oxygen Delivery Method Room Air 08/19/23 11:36 BMI result Body Mass Index 32.7 Tobacco/Smoking Status: Tobacco use Status Tobacco use date assessed 08/19/23 08/19/23 11:44 Patient Tobacco Use Status Never used Tobacco 08/19/23 11:44 e-Cigarette/Vaping Use Never Used 08/19/23 11:44 PHQ-9: PHQ-9 Score PHQ-9: Total score 0 08/19/23 11:46 Depression Screening Interpretation: Negative Thrive Assessment: Date of Thrive Assessment Date Thrive assessed 08/19/23 08/19/23 11:44 Const General: cooperative, comfortable, no acute distress and alert Neck Neck: Yes no lymphadenopathy Thyroid: Thyroid normal Resp Effort & Inspection: normal respiratory effort Auscultation: clear to auscultation bilaterally Percussion: percussion normal Cardio Jugular venous distension: no JVD Palpation: normal PMI Rate: regular rate Rhythm: regular rhythm Heart sounds: S1 normal heart sound present and S2 normal heart sound present GI Inspection: Yes normal to inspection Palpation (GI): No hepatosplenomegaly present Skin General skin exam: no rashes or lesions noted Extrem General: Yes no clubbing, cyanosis or edema Assessment and Plan Assessment & Plan (1) Hypothyroidism: Code(s): E03.9 - Hypothyroidism, unspecified Plan: stable; same rx Orders: Orders Comprehensive [place]. Panel Fast Today N28.9 - Disorder of kidney and ureter, unspecified Complete Blood Count Auto Diff Today D64.9 - Anemia, unspecified Thyroid Stimulating Hormone Today E03.9 - Hypothyroidism, unspecified Lipid Panel Today E78.5 - Hyperlipidemia, unspecified Referrals Ear/Nose/Throat Referral H61.20 - Impacted cerumen, unspecified ear Coding Level of Care Code Est Pt Level 3 (56937) Diagnoses Hypothyroidism E03.9 Additional Codes CARRIE-7 Assessment Billing - CARRIE-7 Assessment Tool: CARRIE-7 Assessment 86755 ([id number])
== END 2023-08-19 11:50 | disposition home or self-care (01) ==
PROVIDERS: PCP Internal Medicine; Visit Provider Internal Medicine
DX: E03.9 Hypothyroidism, unspecified (principal)
CPT/HCPCS: 99213

== ENCOUNTER 2023-09-17 11:40 | Day surgery (SDC) | payer OTHER, SELFPAY ==
[2023-09-15 14:33] VITALS: BMI 32.7
--- NOTE | 2023-09-16 11:51 | HO.ANESPROP2 ---
HPI - Anesthesia Eval Consult details Narrative: 68yo F for Colonoscopy [facility] Active Problems Active Problems: All Active Problems (Updated 05/20/23 @ 09:11 by Angel Peraza MD) Physical exam (Acute) Pre-op exam (Acute) Abdominal bloating (Acute) Abnormal US (ultrasound) of abdomen (Acute) Pre-op examination (Acute) Upper abdominal pain (Acute) GERD (gastroesophageal reflux disease) (Acute) Abdominal cramping (Acute) Esophageal ulcer (Acute) Abnormal ultrasound of right kidney (Acute) Asthma (Acute) Elevated amylase (Acute) Thoracic back pain (Acute) Weight loss (Acute) Upper abdominal pain (Acute) Elevated glucose (Acute) Obesity (Acute) Dyspnea (Acute) COVID-19 (Acute) Intermittent palpitations (Acute) History of arthroplasty of left shoulder (Acute) Obesity (Acute) Cervical cancer screening (Acute) Post-menopausal (Acute) Spinal stenosis of lumbar region (Acute) Spondylosis of lumbosacral spine with radiculopathy (Acute) Hypothyroidism (Acute) Hypertension (Acute) High cholesterol (Acute) Back pain (Acute) Past Medical History Medical History Obesity Encounter for gynecological examination with Papanicolaou smear of cervix Adult general medical exam Eye exam, routine Post-menopausal Screening for breast cancer Screening for colon cancer Screening for diabetes mellitus Hypothyroidism Hypertension High cholesterol Family History Family History Father No problems noted. Mother No problems noted. Sister Glaucoma Family history of problems with anesthesia: No Surgical History Surgical History History of back surgery History of hysterectomy History of colonoscopy Status post total replacement of left shoulder History of section History of total right knee replacement History of Problems with Anesthesia: No Social History Social History Housing: Apartment Alcohol intake: never Patient Tobacco Use Status: Never used Tobacco e-Cigarette/Vaping Use: Never Used Second Hand Smoke Exposure: No service: No Current occupational status: retired Cognitive needs: No Hearing needs: No Vision needs: Yes Meds Allergies Allergy/AdvReac Type Severity Reaction Status Date / Time No Known Allergies Allergy Verified 08/19/23 11:36 Home Medications Medication Instructions Recorded Confirmed Last Taken Type omega-3 fatty acids 1,000 mg 1,000 mg PO DAILY 05/31/22 08/19/23 Unknown History capsule biotin PO DAILY 08/21/22 08/19/23 Unknown History probiotic PO DAILY 08/21/22 08/19/23 Unknown History Exam Height,Weight and Vital Signs: Height 5 ft 2 in Weight 81.193 kg Assessment and Plan Assessment Anesthesia Assessment: Chart Reviewed Final Anesthetic Review Family History of Problems with Anesthesia: No History of Problems with Anesthesia: No
--- NOTE | 2023-09-17 10:26 | PC.NURSE ---
pt no show called x1
[2023-09-17 12:29] VITALS: BP 164/85; PULSE 81; RESP 18; TEMP 36.1; O2SAT 98; BMI 33.1
[2023-09-17] MEDS: Lactated Ringers 1,000 ML 100 ML IVCONT (13:13)
--- NOTE | 2023-09-17 14:07 | P.HPSUR_ITS ---
Pre-Procedural Eval Section A - 24 Hr Update-Section A only Date of Service: 09/17/23 Section B - Complete if H&P > 30 days Chief Complaint: Encounter for screening for malignant neoplasm of Relevant Family History (Specify if Yes): No Relevant Social History: None Present Medications: see Short Stay Collaborative assessment Medical History: Significant History (High cholesterol Hospital discharge foll ow-up Hypertension Hypothyroidism Obesity Obesity Post-menopausal) History of Previous Operations: Relevant previous surgery/procedure and date(s) (History of back surgery History of section History of colonoscopy History of hysterectomy History of total right knee replacement Status post total replacement of left shoulder) Allergies: Allergies Allergy/AdvReac Type Severity Reaction Status Date / Time No Known Allergies Allergy Verified 08/19/23 11:36 Review of Systems Sugical H&P ROS: Negative: Constitution, Cardiovascular, Respiratory, Neurological, Psychiatric, Hem-Onc, Allergic/Immunologic, Gastrointestinal, Genitourinary, Musculoskeletal, Integumentary, Endocrine and Eyes/Ears/Nose/Throat Exam Surgical H&P Exam: Normal: HEENT, Normal: Heart, Normal: Lungs, Normal: Extremities, Normal: Abdomen, Normal: Skin and Normal: Neurological Plan Diagnosis/Plan: Unchanged I have reviewed the history and physical and performed a pertinent physical examination on my patient. No changes have occurred unless specified. Time Spent With Patient Time: Total time managing care of this patient today ____ minutes.
--- NOTE | 2023-09-17 14:57 | P.OP_ITS ---
Operative Note Operative Note Date of Service: 09/17/23 Narrative: Operative Information Procedure Description: Colonoscopy Indication: screening Anesthesia: MAC COLONOSCOPY Instrument: Olympus variable stiffness pediatric scope 190L Colonoscopy Monitoring: Vital signs and clinical assessment, continuous EKG monitoring, Pulse oximetry, Carbon Dioxide monitoring and blood pressure monitoring were done throughout the procedure. Colon withdrawal time was 10 minutes. Procedure: The patient was placed in the left lateral decubitis position and pre-procedure medications were administered. After a digital rectal examination of the ano-rectum, the video colonoscope was inserted into the rectum and advanced through the colon to the cecum/TI. The colonoscope was slowly withdrawn in a retrograde panoramic fashion and the colon mucosa was carefully examined including a retroflexed view of the rectum. Findings and interventions are described below. Procedure Difficulty: easy Findings: Terminal Ileum-normal Cecum:normal Right sided retroflexion- scattered diverticula seen Ascending Colon: 3-5 mm sessile polyp removed with cold forceps Transverse Colon -normal Descending Colon:normal Sigmoid Colon: moderate severe diverticulosis noted Rectum: Retroflexion with small internal hemorrhoids, grade I Anorectum - normal Colon preparation: [place] Bowel Preparation Scale Right colon; 2 Transverse colon: 2 Left colon; 2 (0 = Unprepared colon segment with mucosa not seen due to solid stool that cannot be cleared. 1 = Portion of mucosa of the colon segment seen, but other areas of the colon segment not well seen due to staining, residual stool and/or opaque liquid. 2 = Minor amount of residual staining, small fragments of stool and/or opaque liquid, but mucosa of colon segment seen well. 3 = Entire mucosa of colon segment seen well with no residual staining, small fragments of stool or opaque liquid) Impression and Post Procedure Diagnosis: polyp internal hemorrhoids diverticular disease Plan: High fiber diet leaflet Avoid straining at stool, epsom salts and sitz bath, anusol supps or cream Repeat Colonoscopy in 5-7 years due to polyp or earlier if clinically indicated Above findings were reviewed with the patient and relevant handouts were provided if indicated.
[2023-09-17 15:01] VITALS: BP 125/70; PULSE 72; RESP 16; TEMP 36.1; O2SAT 99
[2023-09-17 15:16] VITALS: BP 115/79; PULSE 78; RESP 16; O2SAT 99
[2023-09-17 15:31] VITALS: BP 154/84; PULSE 65; RESP 16; TEMP 37; O2SAT 99
== END 2023-09-17 16:05 | disposition home or self-care (01) ==
PROVIDERS: PCP Internal Medicine; Visit Provider Internal Medicine Gastroenterology
PROC: 0DJD8ZZ Inspection of Lower Intestinal Tract, Via Natural or Artificial Opening Endoscopic (ICD-10-PCS; CPT 45378; principal; 2023-09-17 15:40)
DX: Z12.11 Encounter for screening for malignant neoplasm of colon (principal); K63.5 Polyp of colon; K57.30 Diverticulosis of large intestine without perforation or abscess without bleeding; K64.0 First degree hemorrhoids; I10 Essential (primary) hypertension; E78.00 Pure hypercholesterolemia, unspecified
CPT/HCPCS: 45380; 88305; J2704

== ENCOUNTER → 2023-09-17 11:40 | Outpatient (BNV) | payer OTHER, SELFPAY | PROVIDERS: PCP Internal Medicine; Visit Provider Internal Medicine Gastroenterology | DX: Z12.11 Encounter for screening for malignant neoplasm of colon (principal); K63.5 Polyp of colon; K57.30 Diverticulosis of large intestine without perforation or abscess without bleeding; K64.0 First degree hemorrhoids | CPT/HCPCS: 45380 ==

== ENCOUNTER 2023-10-28 09:53 | Outpatient (REF) | payer OTHER, SELFPAY ==
[2023-10-28 10:03] LABS: MANUAL DIFF FLAG NO
[2023-10-28 11:01] LABS: Basophils Absolute Auto 0.1 X10*3/uL (0.0-0.2); Basophils Percent Auto 0.8 % (0-2); Eosinophils Absolute Auto 0.2 X10*3/uL (0.0-0.4); Eosinophils Percent Auto 3.4 % (0-4); Hematocrit 42.6 % (37.0-47.0); Hemoglobin 14.1 g/dl (12.0-16.0); Imm Gran Abs Auto 0.01 X10*3/uL (0.00-0.03); Imm Gran Pct Auto 0.2 % (0.0-0.4); Lymphocytes Absolute Auto 2.6 X10*3/uL (1.2-4.9); Lymphocytes Percent Auto 40.6 % (20-40); Mean Corpuscular HGB Conc 33.1 g/dl (31.0-35.0); Mean Corpuscular Hemoglobin 28.8 pg (27.0-33.0); Mean Corpuscular Volume 86.9 fL (80.0-98.0); Mean Platelet Volume 10.5 fL (9.4-12.3); Monocytes Absolute Auto 0.6 X10*3/uL (0.1-1.2); Monocytes Percent Auto 9.4 % (2-11); Neutrophils Percent Auto 45.6 % (45-73); Platelet Count 302 X10*3/uL (160-400); Red Cell Distribution Width 13.9 % (11.0-16.0); White Blood Count 6.5 X10*3/uL (4.8-10.8)
[2023-10-28 11:37] LABS: Alanine Aminotransferase 20 U/L (0-31); Albumin Level 3.9 g/dL (3.5-5.0); Alkaline Phosphatase 107 U/L (39-117); Anion Gap 11 (12-20); Aspartate Amino Transferase 19 U/L (5-31); Bilirubin Total 0.4 mg/dL (0.0-1.0); Blood Urea Nitrogen 14 mg/dL (9-16); Calcium 9.5 mg/dL (8.4-10.2); Carbon Dioxide 30 mmol/L (22-29); Chloride 106 mmol/L (96-108); Cholesterol 205 mg/dL (<200); Estimated Glomerular Filt Rate > 60; Glucose Fasting 94 mg/dL (60-99); HDL Cholesterol 37 mg/dL (>40); LDL Cholesterol Calculated 136 mg/dL (<100); Potassium 4.4 mmol/L (3.3-5.1); Sodium 143 mmol/L (135-145); Total Protein 7.6 g/dL (6.5-8.0); Triglycerides 162 mg/dL (<150)
[2023-10-28 11:51] LABS: Thyroid Stimulating Hormone 2.08 uIU/mL (0.32-4.0)
== END 2023-10-28 09:54 | disposition home or self-care (01) ==
LOC: HO.LAB 09:53
PROVIDERS: PCP Internal Medicine; Visit Provider Internal Medicine
DX: E03.9 Hypothyroidism, unspecified (principal); N28.9 Disorder of kidney and ureter, unspecified; E78.5 Hyperlipidemia, unspecified; D64.9 Anemia, unspecified
CPT/HCPCS: 36415; 80053; 80061; 84443; 85025

== ENCOUNTER 2023-10-30 13:39 | Outpatient (AMB) | payer OTHER, SELFPAY ==
[2023-10-30 13:41] VITALS: BP 136/76; PULSE 75; O2SAT 98; BMI 32.7
--- NOTE | 2023-10-30 13:41 | MHC.PC.OV ---
Vital Signs 10/30/23 13:41 Height 5 ft 2 in Weight 179 lb BMI 32.7 BP 136/76 Blood Pressure Location Lt brachial Position Sitting Pulse 75 Pulse Source Pulse Oximeter Pulse Oximetry (%) 98 Oxygen Delivery Method Room Air Intake Visit Reasons: 3 month f/u Tuberculosis Specialist Required: Yes Tuberculosis Specialist Name: Baltazar ([id number]) Wood Milling Machine Tender: Not Required per policy Accompanied by: Self / Same As Patient Allergies No Known Allergies Allergy (Verified 10/30/23 13:41) Medication List - Last Reconciled 10/30/23 by Angel Peraza MD albuterol sulfate 90 mcg/actuation 2 inhalations inhalation Q6H PRN albuterol sulfate 2.5 mg (3 mL) inhalation Q4H PRN [biotin PO DAILY] cholecalciferol (vitamin D3) 25 mcg PO DAILY dicyclomine 20 mg PO QID gabapentin (Neurontin) 800 mg PO TID levothyroxine 75 mcg PO QAM lisinopril 20 mg PO DAILY lorazepam 0.5 mg PO BID PRN omega-3 fatty acids 1,000 mg PO DAILY pantoprazole 40 mg PO BID [probiotic PO DAILY] simethicone 180 mg PO TID simvastatin 10 mg PO DAILY Tobacco use date assessed: 08/19/23 Fall risk assessment: No Falls in past year Last assessed Fall Risk: 10/30/23 Dental Screening Dental Screen Date: 10/30/23 Did you have a dental visit in the last 12 months?: Yes Did you have a dental problem in the last 6 months where you did not have access to dental care?: No Was dental information given to patient?: Patient has dentist HPI 3 month f/u HPI Details hypothyroidism htn and hyperlip; doing well and compliant [facility] Medical History Obesity Encounter for gynecological examination with Papanicolaou smear of cervix Adult general medical exam Eye exam, routine Post-menopausal Screening for breast cancer Screening for colon cancer Screening for diabetes mellitus Hypothyroidism Hypertension High cholesterol Surgical History History of back surgery History of hysterectomy History of colonoscopy Status post total replacement of left shoulder History of section History of total right knee replacement Family History Father No problems noted. Mother No problems noted. Sister Glaucoma Social History Housing: Apartment Alcohol intake: never Patient Tobacco Use Status: Never used Tobacco e-Cigarette/Vaping Use: Never Used Second Hand Smoke Exposure: No service: No Current occupational status: retired Cognitive needs: No Hearing needs: No Vision needs: Yes (glasses) Questionnaire Thrive Questionnaire Date Thrive assessed: 08/19/23 CARRIE-7 AMB Questionnaire CARRIE-7 Date CARRIE - 7 assessed: 08/19/23 Source: Developed by Drs. Gordon Shi, Duyen Levine, Chirag Cole and colleagues, with an educational moshe from [employer]. Review of Systems Const Denies chills, Denies headache(s) and Denies weight loss ENT Denies headache(s) Card Denies chest pain, Denies syncope, Denies irregular heart rhythm and Denies dyspnea Resp Denies chest congestion, Denies cough and Denies dyspnea GI Denies abdominal pain, Denies change in stool character, Denies nausea and Denies vomiting Musc Denies deformity and Denies joint swelling Neuro Denies syncope and Denies headache(s) Physical exam (Primary Care) Vital Signs: Last Vital Signs Pulse 75 10/30/23 13:41 BP 136/76 10/30/23 13:41 Pulse Ox 98 10/30/23 13:41 Oxygen Delivery Method Room Air 10/30/23 13:41 BMI result Body Mass Index 32.7 Tobacco/Smoking Status: Tobacco use Status Tobacco use date assessed 08/19/23 10/30/23 13:41 Patient Tobacco Use Status Never used Tobacco 10/30/23 13:41 e-Cigarette/Vaping Use Never Used 10/30/23 13:41 Thrive Assessment: Date of Thrive Assessment Date Thrive assessed 08/19/23 10/30/23 13:41 Const General: cooperative, comfortable, no acute distress and alert Neck Neck: Yes no lymphadenopathy Thyroid: Thyroid normal Resp Effort & Inspection: normal respiratory effort Auscultation: clear to auscultation bilaterally Percussion: percussion normal Cardio Jugular venous distension: no JVD Palpation: normal PMI Rate: regular rate Rhythm: regular rhythm Heart sounds: S1 normal heart sound present and S2 normal heart sound present GI Inspection: Yes normal to inspection Palpation (GI): No hepatosplenomegaly present Skin General skin exam: no rashes or lesions noted Extrem General: Yes no clubbing, cyanosis or edema Assessment and Plan Assessment & Plan (1) Hypothyroidism: Code(s): E03.9 - Hypothyroidism, unspecified Plan: stable; same rx (2) Hypertension: Code(s): I10 - Essential (primary) hypertension Plan: stable; same rx (3) High cholesterol: Code(s): E78.00 - Pure hypercholesterolemia, unspecified Plan: stable; same rx Orders: Orders Thyroid Stimulating Hormone Today E03.9 - Hypothyroidism, unspecified Lipid Panel Today E78.5 - Hyperlipidemia, unspecified Coding Level of Care Code Est Pt Level 4 (92385) Diagnoses Hypothyroidism E03.9 Hypertension I10 High cholesterol E78.00
== END 2023-10-30 15:47 | disposition home or self-care (01) ==
PROVIDERS: PCP Internal Medicine; Visit Provider Internal Medicine
DX: E03.9 Hypothyroidism, unspecified (principal); I10 Essential (primary) hypertension; E78.00 Pure hypercholesterolemia, unspecified
CPT/HCPCS: 99214

== ENCOUNTER 2024-04-15 10:52 | Outpatient (AMB) | payer OTHER, SELFPAY ==
[2024-04-15 10:54] VITALS: BP 142/72; PULSE 89; O2SAT 95; BMI 33.8
--- NOTE | 2024-04-15 10:54 | A.OFFPC_ITS ---
Vital Signs 04/15/24 10:54 Height 5 ft 2 in Weight 185 lb BMI 33.8 BP 142/72 H Blood Pressure Location Lt brachial Position Sitting Pulse 89 Pulse Source Pulse Oximeter Pulse Oximetry (%) 95 Oxygen Delivery Method Room Air Intake Visit Reasons: Regular visit Home Health Registered Nurse Required: Yes Home Health Registered Nurse Name: Steve [id number] Accompanied by: Self / Same As Patient Allergies No Known Allergies Allergy (Verified 04/15/24 10:54) Medication List - Last Reconciled 04/16/24 by Angel Peraza MD albuterol sulfate 90 mcg/actuation 2 inhalations inhalation Q6H PRN albuterol sulfate 2.5 mg (3 mL) inhalation Q4H PRN [biotin PO DAILY] cholecalciferol (vitamin D3) 25 mcg PO DAILY dicyclomine 20 mg PO QID gabapentin (Neurontin) 800 mg PO TID levothyroxine 75 mcg PO QAM lisinopril 20 mg PO DAILY lorazepam 0.5 mg PO BID PRN omega-3 fatty acids 1,000 mg PO DAILY pantoprazole 40 mg PO BID [probiotic PO DAILY] simethicone 180 mg PO TID simvastatin 10 mg PO DAILY Tobacco use date assessed: 08/19/23 Fall risk assessment: No Falls in past year Last assessed Fall Risk: 04/15/24 Dental Screening Dental Screen Date: 10/30/23 HPI Regular visit HPI Details HTN on RX; compliant; BP doing well PFSH Medical History Obesity Encounter for gynecological examination with Papanicolaou smear of cervix Adult general medical exam Eye exam, routine Post-menopausal Screening for breast cancer Screening for colon cancer Screening for diabetes mellitus Hypothyroidism Hypertension High cholesterol Surgical History History of back surgery History of hysterectomy History of colonoscopy Status post total replacement of left shoulder History of section History of total right knee replacement Family History Father No problems noted. Mother No problems noted. Sister Glaucoma Social History Housing: Apartment Alcohol intake: never Patient Tobacco Use Status: Never used Tobacco Tobacco use type: Cigarette e-Cigarette/Vaping Use: Never Used Second Hand Smoke Exposure: No service: No Current occupational status: retired Cognitive needs: No Hearing needs: No Vision needs: Yes (glasses) Questionnaire PHQ-9 Over the last 2 weeks, how often have you been bothered by any of the following problems? 1. Little interest or pleasure in doing things: not at all 2. Feeling down, depressed, or hopeless: not at all 3. Trouble falling or staying asleep, or sleeping too much: not at all 4. Feeling tired or having little energy: not at all 5. Poor appetite or overeating: not at all 6. Feeling bad about yourself - or that you are a failure or have let yourself or your family down: not at all 7. Trouble concentrating on things, such as reading the newspaper or watching television: not at all 8. Moving or speaking so slowly that other people could have noticed. Or the opp osite - being so fidgety or restless that you have been moving around a lot more than usual: not at all 9. Thoughts that you would be better off or of hurting yourself in some way: not at all Total score: 0 Depression Screening Interpretation: Negative Depression Screening Done: Yes 92022 - PHQ-9 Billing: Yes Source: Developed by Drs. Gordon Shi, Duyen Levine, Chirag Cole and colleagues, with an educational moshe from [employer]. Thrive Questionnaire Date Thrive assessed: 08/19/23 AUDIT C Alcohol Use Questionnaire (AUDIT-C) 1. How often do you have a drink containing alcohol?: Never Total Score: 0 CARRIE-7 AMB Questionnaire CARRIE-7 Date CARRIE - 7 assessed: 08/19/23 Source: Developed by Drs. Gordon Shi, Chirag Carter and colleagues, with an educational moshe from [employer]. Review of Systems Const Denies chills, Denies headache(s) and Denies weight loss ENT Denies headache(s) Card Denies chest pain, Denies syncope, Denies irregular heart rhythm and Denies dyspnea Resp Denies chest congestion, Denies cough and Denies dyspnea GI Denies abdominal pain, Denies change in stool character, Denies nausea and Denies vomiting Musc Denies deformity and Denies joint swelling Neuro Denies syncope and Denies headache(s) Physical exam (Primary Care) Vital Signs: Last Vital Signs Pulse 89 04/15/24 10:54 BP 142/72 H 04/15/24 10:54 Pulse Ox 95 04/15/24 10:54 Oxygen Delivery Method Room Air 04/15/24 10:54 BMI result Body Mass Index 33.8 Tobacco/Smoking Status: Tobacco use Status Tobacco use date assessed 08/19/23 04/15/24 10:57 Patient Tobacco Use Status Never used Tobacco 04/15/24 10:57 Tobacco use type Cigarette 04/15/24 10:57 e-Cigarette/Vaping Use Never Used 04/15/24 10:57 PHQ-9: PHQ-9 Score PHQ-9: Total score 0 04/15/24 10:57 Depression Screening Interpretation: Negative Thrive Assessment: Date of Thrive Assessment Date Thrive assessed 08/19/23 04/15/24 10:57 Const General: cooperative, comfortable, no acute distress and alert Neck Neck: Yes no lymphadenopathy Thyroid: Thyroid normal Resp Effort & Inspection: normal respiratory effort Auscultation: clear to auscultation bilaterally Percussion: percussion normal Cardio Jugular venous distension: no JVD Palpation: normal PMI Rate: regular rate Rhythm: regular rhythm Heart sounds: S1 normal heart sound present and S2 normal heart sound present GI Inspection: Yes normal to inspection Palpation (GI): No hepatosplenomegaly present Skin General skin exam: no rashes or lesions noted Extrem General: Yes no clubbing, cyanosis or edema Assessment and Plan Assessment & Plan (1) Hypertension: Code(s): I10 - Essential (primary) hypertension Plan: stable; same rx Coding Level of Care Code Est Pt Level 3 (43538) Diagnoses Hypertension I10
== END 2024-04-15 11:09 | disposition home or self-care (01) ==
PROVIDERS: PCP Internal Medicine; Visit Provider Internal Medicine
DX: I10 Essential (primary) hypertension (principal)
CPT/HCPCS: 99213

== ENCOUNTER 2024-04-20 12:37 | Outpatient (REF) | payer OTHER, SELFPAY ==
--- NOTE | ~2024-04-20 | MM_ITS ---
EXAMINATION: MM DIAGNOSTIC DIGITAL BREAST TOMOSYNTHESIS, BILATERAL CLINICAL INFORMATION: Patient one year late for one-year follow-up for bilateral probably benign scattered groups of likely dystrophic breast calcifications. Patient also due for yearly bilateral. COMPARISON: Mammography: 06/13/2022, 12/10/2021, 06/12/2021, 06/05/2021 (BI-RADS 0). TECHNIQUE: Digital breast tomosynthesis is performed in both the craniocaudal and mediolateral oblique views along with computer-aided detection (CAD). Synthesized 2D images are generated from the tomosynthesis. In addition, full field bilateral 3-D ML views were obtained, as well as 2-D spot magnification left cc, left MLO, right CCA, and right mL x2 views. FINDINGS: The breasts are heterogeneously dense, which may obscure small masses (ACR BI-RADS breast composition Category c). Several groups of bilateral breast calcifications are stable and have a classically dystrophic appearance without any aggressive changes. These are stable over 3 years and benign. No suspicious calcifications are identified. There is a post benign biopsy clip in the lower inner right breast middle one third. There are no suspicious masses or areas of architectural distortion in either breast. The parenchymal pattern is stable from prior exams. There is no skin or axillary abnormality. MM/MM tomosynthesis diagnostic BI IMPRESSION: -There are no findings suspicious for malignancy in either breast. -Bilateral groups of dystrophic calcifications in both breasts are benign. There are no suspicious calcifications present. No further follow-up recommended. -Recommend the patient resume routine annual screening. ASSESSMENT: BI-RADS BI-RADS 2 - Benign Findings RECOMMENDATION: 1 year F/U Results were provided to the patient at time of visit by the technologist. This patient's information was entered into a reminder system with a target due date for their next mammogram. Electronically signed by: Missael Stinson MD 04/20/2024 04:38 PM EDT
== END 2024-04-20 12:38 | disposition home or self-care (01) ==
LOC: HO.MAMMO 12:37
PROVIDERS: PCP Internal Medicine; Visit Provider Internal Medicine
DX: R92.1 Mammographic calcification found on diagnostic imaging of breast (principal)
CPT/HCPCS: 77062; 77066

== ENCOUNTER → 2024-04-20 13:15 | Outpatient (BNV) | payer OTHER, SELFPAY | PROVIDERS: PCP Internal Medicine; Visit Provider Radiology Diagnostic Radiology | DX: R92.1 Mammographic calcification found on diagnostic imaging of breast (principal) | CPT/HCPCS: 77066; G0279 ==

== ENCOUNTER 2024-05-19 12:02 | Outpatient (REF) | payer OTHER, SELFPAY ==
[2024-05-19 14:29] LABS: Cholesterol 202 mg/dL (<200); HDL Cholesterol 35 mg/dL (>40); LDL Cholesterol Calculated 135 mg/dL (<100); Thyroid Stimulating Hormone 1.59 uIU/mL (0.32-4.0); Triglycerides 163 mg/dL (<150)
== END 2024-05-19 12:03 | disposition home or self-care (01) ==
LOC: HO.LAB 12:02
PROVIDERS: PCP Internal Medicine; Visit Provider Internal Medicine
DX: E03.9 Hypothyroidism, unspecified (principal); E78.5 Hyperlipidemia, unspecified
CPT/HCPCS: 36415; 80061; 84443

== ENCOUNTER 2024-05-21 09:51 | Outpatient (AMB) | payer OTHER, SELFPAY ==
[2024-05-21 09:53] VITALS: BP 148/84; PULSE 83; O2SAT 96; BMI 33.8
--- NOTE | 2024-05-21 09:53 | MHC.PC.OV ---
Vital Signs 05/21/24 09:53 Height 5 ft 2 in Weight 185 lb BMI 33.8 BP 148/84 H Blood Pressure Location Lt brachial Position Sitting Pulse 83 Pulse Source Pulse Oximeter Pulse Oximetry (%) 96 Oxygen Delivery Method Room Air Intake Visit Reasons: Annual Exam Procedure Rn Required: Yes Procedure Rn Language: Dispute Specialist Name: Moses [id number] Accompanied by: Self / Same As Patient Allergies No Known Allergies Allergy (Verified 05/21/24 09:55) Medication List - Last Reconciled 05/24/24 by Angel Peraza MD albuterol sulfate 90 mcg/actuation 2 inhalations inhalation Q6H PRN albuterol sulfate 2.5 mg (3 mL) inhalation Q4H PRN [biotin PO DAILY] cholecalciferol (vitamin D3) 25 mcg PO DAILY dicyclomine 20 mg PO QID gabapentin (Neurontin) 800 mg PO TID levothyroxine 75 mcg PO QAM lisinopril 20 mg PO DAILY lorazepam 0.5 mg PO BID PRN omega-3 fatty acids 1,000 mg PO DAILY pantoprazole 40 mg PO BID [probiotic PO DAILY] simethicone 180 mg PO TID simvastatin 10 mg PO DAILY Tobacco use date assessed: 08/19/23 Fall risk assessment: No Falls in past year Last assessed Fall Risk: 05/21/24 Dental Screening Dental Screen Date: 10/30/23 [facility] Annual Exam HPI Details asthma hypertension and hyperlipidemia; complint with meds [facility] Medical History Obesity Encounter for gynecological examination with Papanicolaou smear of cervix Adult general medical exam Eye exam, routine Post-menopausal Screening for breast cancer Screening for colon cancer Screening for diabetes mellitus Hypothyroidism Hypertension High cholesterol Surgical History History of back surgery History of hysterectomy History of colonoscopy Status post total replacement of left shoulder History of section History of total right knee replacement Family History Father No problems noted. Mother No problems noted. Sister Glaucoma Social History Housing: Apartment Alcohol intake: never Patient Tobacco Use Status: Never used Tobacco Tobacco use type: Cigarette e-Cigarette/Vaping Use: Never Used Second Hand Smoke Exposure: No service: No Current occupational status: retired Cognitive needs: No Hearing needs: No Vision needs: Yes (glasses) Questionnaire PHQ-9 Over the last 2 weeks, how often have you been bothered by any of the following problems? 1. Little interest or pleasure in doing things: several days 2. Feeling down, depressed, or hopeless: not at all 3. Trouble falling or staying asleep, or sleeping too much: not at all 4. Feeling tired or having little energy: not at all 5. Poor appetite or overeating: not at all 6. Feeling bad about yourself - or that you are a failure or have let yourself or your family down: not at all 7. Trouble concentrating on things, such as reading the newspaper or watching television: not at all 8. Moving or speaking so slowly that other people could have noticed. Or the opposite - being so fidgety or restless that you have been moving around a lot more than usual: not at all 9. Thoughts that you would be better off or of hurting yourself in some way: not at all Total score: 1 Depression Screening Interpretation: Negative Depression Screening Done: Yes 81892 - PHQ-9 Billing: Yes Source: Developed by Drs. Gordon Shi, Chirag Carter and colleagues, with an educational moshe from [employer]. Thrive Questionnaire Date Thrive assessed: 08/19/23 I am a: Patient What is your living situation today?: I have a steady place to live THRIVE Score: 0 AUDIT C Alcohol Use Questionnaire (AUDIT-C) 1. How often do you have a drink containing alcohol?: Never Total Score: 0 CARRIE-7 AMB Questionnaire CARRIE-7 Date CARRIE - 7 assessed: 08/19/23 Source: Developed by Drs. Gordon Shi, Chirag Carter and colleagues, with an educational moshe from [employer]. Review of Systems Const Denies chills, Denies fatigue, Denies headache(s) and Denies weight loss Eyes Denies change in vision, Denies diplopia and Denies eye pain ENT Denies vertigo, Denies dizziness, Denies headache(s) and Denies nasal discharge Card Denies chest pain, Denies rapid heart rate and Denies dyspnea on exertion Resp Denies chest congestion, Denies cough, Denies pain with cough and Denies dyspnea on exertion GI Denies abdominal pain, Denies hematochezia and Denies change in bowel habits Musc Denies myalgias, Denies arthralgias and Denies joint swelling Skin/Breast Denies lesions and Denies unusual bruising Neuro Denies vertigo, Denies dizziness, Denies headache(s) and Denies focal weakness Endo Denies fatigue Physical exam (Primary Care) Vital Signs: Last Vital Signs Pulse 83 05/21/24 09:53 BP 148/84 H 05/21/24 09:53 Pulse Ox 96 05/21/24 09:53 Oxygen Delivery Method Room Air 05/21/24 09:53 BMI result Body Mass Index 33.8 Tobacco/Smoking Status: Tobacco use Status Tobacco use date assessed 08/19/23 05/21/24 09:58 Patient Tobacco Use Status Never used Tobacco 05/21/24 09:58 Tobacco use type Cigarette 05/21/24 09:58 e-Cigarette/Vaping Use Never Used 05/21/24 09:58 PHQ-9: PHQ-9 Score PHQ-9: Total score 0 05/21/24 09:58 Depression Screening Interpretation: Negative Thrive Assessment: Date of Thrive Assessment Date Thrive assessed 08/19/23 05/21/24 09:58 Const General: cooperative, healthy appearing and no acute distress Orientation/consciousness: oriented to person, oriented to place and oriented to time [facility] Head: Yes normal to inspection, Yes normocephalic and Yes atraumatic Mouth: Normal oral and palatal mucosa present and tongue normal Throat: Yes posterior oropharynx normal and Yes uvula midline Eyes General: appearance normal, both eyes and all related structures Neck Neck: Yes normal visual inspection, Yes full ROM and Yes no lymphadenopathy Thyroid: Thyroid normal Carotids: normal carotid upstroke Chest Chest palpation & inspection: normal inspection of the chest Resp Effort & Inspection: normal respiratory effort and able to speak in complete sentences Auscultation: clear to auscultation bilaterally Cardio Jugular venous distension: no JVD Palpation: normal PMI Rate: regular rate Rhythm: regular rhythm Heart sounds: S1 normal heart sound present and S2 normal heart sound present GI Inspection: Yes normal to inspection Palpation (GI): Soft to palpation and No hepatosplenomegaly present Auscultation: normal bowel sounds General: Yes no CVA tenderness Back/Spine/Pelvis Back: no CVA tenderness Skin General skin exam: no rashes or lesions noted Neuro General: oriented to person, oriented to place and oriented to time Extrem General: Yes normal to inspection and Yes full ROM Coding Level of Care Code Est Pt Prev Care >65y(04966) Diagnoses Physical exam Z00.00 Hypertension I10 High cholesterol E78.00 Assessment & Plan Assessment & Plan (1) Physical exam: Code(s): Z00.00 - Encounter for general adult medical examination without abnormal findings Category: Medical Plan: stable; do labs (2) Hypertension: Code(s): I10 - Essential (primary) hypertension Category: Medical Plan: stable; same rx (3) High cholesterol: Code(s): E78.00 - Pure hypercholesterolemia, unspecified Category: Medical Plan: stable; same rx Orders: Orders Lipid Panel Today Z13.220 - Encounter for screening for lipoid disorders Thyroid Stimulating Hormone Today Z13.29 - Encounter for screening for other suspected endocrine disorder Complete Blood Count Auto Diff Today Z13.0 - Encounter for screening for diseases of the blood and blood-forming organs and certain disorders involving the immune mechanism Comprehensive [place]. Panel Fast Today Z13.9 - Encounter for screening, unspecified
== END 2024-05-21 10:08 | disposition home or self-care (01) ==
PROVIDERS: PCP Internal Medicine; Visit Provider Internal Medicine
DX: Z00.00 Encounter for general adult medical examination without abnormal findings (principal); I10 Essential (primary) hypertension; E78.00 Pure hypercholesterolemia, unspecified

== ENCOUNTER → 2024-05-21 09:51 | Outpatient (BNVA) | payer OTHER, SELFPAY | PROVIDERS: PCP Internal Medicine; Visit Provider Internal Medicine | DX: Z00.00 Encounter for general adult medical examination without abnormal findings (principal); E78.00 Pure hypercholesterolemia, unspecified; I10 Essential (primary) hypertension | CPT/HCPCS: 96127; 99397 ==

== ENCOUNTER 2024-09-03 13:54 | Outpatient (AMB) | payer OTHER, SELFPAY ==
[2024-09-03 14:05] VITALS: BP 150/90; PULSE 88; TEMP 36.2; O2SAT 98; BMI 33.5
--- NOTE | 2024-09-03 14:05 | A.OFFPC_ITS ---
Vital Signs 09/03/24 14:05 Height 5 ft 2 in Weight 183 lb BMI 33.5 BP 150/90 H Blood Pressure Location Lt brachial Position Sitting Pulse 88 Pulse Source Pulse Oximeter Temp 97.1 F Temp Source Temporal Artery Scan Pulse Oximetry (%) 98 Oxygen Delivery Method Room Air Intake Visit Reasons: 3 month f/u Eligibility Worker Required: No Eligibility Worker Name: Pt refused, granddaughter inte Accompanied by: Grand Child Allergies No Known Allergies Allergy (Verified 09/03/24 14:09) Medication List - Last Reconciled 09/06/24 by Angel Peraza MD albuterol sulfate 90 mcg/actuation 2 inhalations inhalation Q6H PRN albuterol sulfate 2.5 mg (3 mL) inhalation Q4H PRN [biotin PO DAILY] cholecalciferol (vitamin D3) 25 mcg PO DAILY dicyclomine 20 mg PO QID gabapentin (Neurontin) 800 mg PO TID levothyroxine 75 mcg PO QAM lisinopril 20 mg PO DAILY lorazepam 0.5 mg PO BID PRN omega-3 fatty acids 1,000 mg PO DAILY pantoprazole 40 mg PO BID [probiotic PO DAILY] simethicone 180 mg PO TID simvastatin 10 mg PO DAILY Tobacco use date assessed: 09/03/24 Fall risk assessment: No Falls in past year Last assessed Fall Risk: 09/03/24 Dental Screening Dental Screen Date: 09/03/24 Did you have a dental visit in the last 12 months?: Yes Did you have a dental problem in the last 6 months where you did not have access to dental care?: No Was dental information given to patient?: Patient has dentist HPI 3 month f/u HPI Details HTN hypothyroidism and asthma on rx; doing well and compliant [facility] Medical History Obesity Encounter for gynecological examination with Papanicolaou smear of cervix Adult general medical exam Eye exam, routine Post-menopausal Screening for breast cancer Screening for colon cancer Screening for diabetes mellitus Hypothyroidism Hypertension High cholesterol Surgical History History of back surgery History of hysterectomy History of colonoscopy Status post total replacement of left shoulder History of section History of total right knee replacement Family History Father No problems noted. Mother No problems noted. Sister Glaucoma Social History Housing: Apartment Alcohol intake: never Patient Tobacco Use Status: Never used Tobacco Tobacco use type: Cigarette e-Cigarette/Vaping Use: Never Used Second Hand Smoke Exposure: No service: No Current occupational status: retired Cognitive needs: No Hearing needs: No Vision needs: Yes (glasses) Questionnaire PHQ-9 Over the last 2 weeks, how often have you been bothered by any of the following problems? 1. Little interest or pleasure in doing things: not at all 2. Feeling down, depressed, or hopeless: not at all 3. Trouble falling or staying asleep, or sleeping too much: not at all 4. Feeling tired or having little energy: not at all 5. Poor appetite or overeating: not at all 6. Feeling bad about yourself - or that you are a failure or have let yourself or your family down: not at all 7. Trouble concentrating on things, such as reading the newspaper or watching television: not at all 8. Moving or speaking so slowly that other people could have noticed. Or the opposite - being so fidgety or restless that you have been moving around a lot more than usual: not at all 9. Thoughts that you would be better off or of hurting yourself in some way: not at all Total score: 0 Depression Screening Interpretation: Negative Depression Screening Done: Yes 79881 - PHQ-9 Billing: Yes Source: Developed by Drs. Gordon Shi, Duyen Levine, Chirag Cole and colleagues, with an educational moshe from [employer]. Thrive Questionnaire Date Thrive assessed: 09/03/24 I am a: Patient What is your living situation today?: I have a steady place to live Within the past 12 months, did the food you bought not last and you didn't have the money to get more?: Never true Within the past 12 months, did you worry whether your food would run out before you got money to buy more?: Never true Do you have trouble paying for medicines?: No Do you have trouble getting transportation to medical appointments?: No Do you have trouble paying your heating and electricity bill?: No Do you have trouble taking care of your child, family member or friend?: No Do you have trouble with day-to-day activities such as bathing, preparing meals, shopping, managing finances, etc.?: No Are you currently unemployed and looking for a job?: No Are you interested in more education?: No Please select the resources that you would like help with: None Currently or been in a relationship where the following occur: No concerns reported THRIVE Score: 0 AUDIT C Alcohol Use Questionnaire (AUDIT-C) 1. How often do you have a drink containing alcohol?: Never 3. How often do you have six or more drinks on one occasion?: Never Total Score: 0 CARRIE-7 AMB Questionnaire CARRIE-7 Date CARRIE - 7 assessed: 09/03/24 Feeling nervous, anxious, or on edge: 0 = Not at all Not being able to stop or control worryin = Not at all Worrying too much about different things: 0 = Not at all Trouble relaxin = Not at all Being so restless that it is hard to sit still: 0 = Not at all Becoming easily annoyed or irritable: 0 = Not at all Feeling afraid as if something awful might happen: 0 = Not at all Total CARRIE-7 score (0-4 normal; 5-9 mild; 10-14 moderate; 15-21 severe): 0 Source: Developed by Drs. Gordon Shi, Duyen Levine, Chirag Cole and colleagues, with an educational moshe from [employer]. CARRIE-7 Assessment Billing CARRIE-7 Assessment Tool: CARRIE-7 Assessment 44410 Review of Systems Const Denies chills, Denies headache(s) and Denies weight loss ENT Denies headache(s) Card Denies chest pain, Denies syncope, Denies irregular heart rhythm and Denies dyspnea Resp Denies chest congestion, Denies cough and Denies dyspnea GI Denies abdominal pain, Denies change in stool character, Denies nausea and Denies vomiting Musc Denies deformity and Denies joint swelling Neuro Denies syncope and Denies headache(s) Physical exam (Primary Care) Vital Signs: Last Vital Signs Temp 97.1 F 09/03/24 14:05 Pulse 88 09/03/24 14:05 BP 150/90 H 09/03/24 14:05 Pulse Ox 98 09/03/24 14:05 Oxygen Delivery Method Room Air 09/03/24 14:05 BMI result Body Mass Index 33.5 Tobacco/Smoking Status: Tobacco use Status Tobacco use date assessed 09/03/24 09/03/24 14:10 Patient Tobacco Use Status Never used Tobacco 09/03/24 14:08 Tobacco use type Cigarette 09/03/24 14:08 e-Cigarette/Vaping Use Never Used 09/03/24 14:08 PHQ-9: PHQ-9 Score PHQ-9: Total score 0 09/03/24 14:10 Depression Screening Interpretation: Negative Thrive Assessment: Date of Thrive Assessment Date Thrive assessed 09/03/24 09/03/24 14:08 Currently or been in a relationship where the following occur: No concerns reported Const General: cooperative, comfortable, no acute distress and alert Neck Neck: Yes no lymphadenopathy Thyroid: Thyroid normal Resp Effort & Inspection: normal respiratory effort Auscultation: clear to auscultation bilaterally Percussion: percussion normal Cardio Jugular venous distension: no JVD Palpation: normal PMI Rate: regular rate Rhythm: regular rhythm Heart sounds: S1 normal heart sound present and S2 normal heart sound present GI Inspection: Yes normal to inspection Palpation (GI): No hepatosplenomegaly present Skin General skin exam: no rashes or lesions noted Extrem General: Yes no clubbing, cyanosis or edema Coding Level of Care Code Est Pt Level 3 (17178) Diagnoses Hypertension I10 Additional Codes CARRIE-7 Assessment Billing - CARRIE-7 Assessment Tool: CARRIE-7 Assessment 79158 ([id number]) PHQ-9 - 58728 - PHQ-9 Billing: Yes ([id number]) Assessment & Plan Assessment & Plan (1) Hypertension: Code(s): I10 - Essential (primary) hypertension Category: Medical Plan: stable; same rx
--- OUTSIDE RECORDS SUMMARY | 2024-09-03 15:35 | XMS_ITS | Clinical Summary ---
Author Organization [email or web address] [facility] it Address [id number] [place] [id number] Care Team Providers Care Pipe Fitter Gas Pipe Name Role Phone Angel Peraza MD Primary Care Provider [phone] Surgical History Surgery Date Site/Laterality Comments HYSTERECTOMY PROCEDURE: HISTORICAL HYSTERECTOMY TYMPANOSTOMY TUBE PLACEMENT PROCEDURE: HISTORICAL PE TUBES OTHER SURGICAL HISTORY 07/06/2021 PROCEDURE: [place] ARTHRODESIS POSTERIOR INTERBODY 1 NTRSPC LUMBAR; COMMENT: L3-S1 fusion, (posterior hardware L3-5, autofusion L5-S1) Dr. Garland Medical History Medical History Date Comments Asthma DX:Asthma Essential hypertension DX:Essent ial hypertension Obesity DX:Obesity Social History Tobacco Use Types Packs/Day Years Used Date Smoking Tobacco: Never Smokeless Tobacco: Never Sex and Gender Information Value Date Recorded Sex Assigned at Not on file Gender Identity Not on file Sexual Orientation Not on file Obstetrics History Last Filed Vital Signs Vital Sign Reading Time Taken Comments Blood Pressure - - Pulse - - Temperature - - Respiratory Rate - - Oxygen Saturation - - Inhaled Oxygen Concentration - - Weight 90.7 kg (200 lb) 01/31/2022 4:14 PM EDT Height 157.5 cm (5' 2 ) 10/29/2021 1:00 PM EDT Body Mass Index 36.58 10/29/2021 1:00 PM EDT Plan of Treatment Health Maintenance Due Date Last Done Comments Breast Cancer Screening 1957 DTaP,Tdap,and Td Vaccines (1 - Tdap) 1976 Zoster Vaccines (1 of 2) 2007 Pneumococcal Vaccine: 65+ Years (1 of 1 - PCV) 2022 Colorectal Cancer Screening: Colonoscopy 07/14/2022 Depression Screening 07/14/2022 Falls Risk Assessment 07/14/2022 Hepatitis C Screening 07/14/2022 Osteoporosis Screening (Bone Density Screening) 07/14/2022 Social Influencers of Health Screening 07/14/2022 COVID-19 Vaccine (2 - 2023-2 5 season) 2024 11/18/2020 Influenza Vaccine (#1) 2024 0, 11/13/2019 RSV Immunization Patients 60 + Years Old (1 - 1-dose 75+ series) 2032 HIB Vaccines Aged Out No longer eligi ble based on patient's age to complete this topic HPV Vaccines Aged Out No longer eligi ble based on patient's age to complete this topic Hepatitis A Vaccines Aged Out No long er eligible based on patient's age to complete this topic Hepatitis B Vaccines Aged Out No long er eligible based on patient's age to complete this topic IPV Vaccines Aged Out No longer eligi ble based on patient's age to complete this topic MMR Vaccines Aged Out No longer eligi ble based on patient's age to complete this topic Meningococcal ACWY Vaccine Aged Out N o longer eligible based on patient's age to complete this topic RSV Immunization Patients Under 20 months Aged Out No longer eligible b ased on patient's age to complete this topic Varicella Vaccines Aged Out No longer eligible based on patient's age to complete this topic Advance Directives Documents on File Type Date Recorded Patient Business And Financial Counsel Expl anation Health Care Decision (hx) 07/06/2021 EMILY CRESPO DIRECTIVE Care Teams Pipe Fitter Gas Pipe Relationship Specialty Start Date End Date Angel Peraza MD [address] [place] [address] [place] [id number] PCP - General Internal Medicine 07/18/21
--- OUTSIDE RECORDS SUMMARY | 2024-09-03 15:35 | XMS_ITS | Clinical Summary ---
Author Organization [facility], Address [address] [place] [address] Phone Care Team Providers Care Hand Woven Carpet And Rug Mender Name Role Phone Angel Peraza MD Primary Care Provider Allergies No known active allergies Medications lisinopril 20 MG tablet 04/12/2021 Active levothyroxine (SYNTHROID, LEVOTHROID) 75 MCG tablet 04/12/2021 Active simvastatin (ZOCOR) 10 MG tablet 04/12/2021 Active gabapentin (NEURONTIN) 800 MG tablet 05/10/2021 Active Cholecalciferol (Vitamin D3) 25 MCG (1000 UT) capsule 04/06/2021 Active Social History Tobacco Use Types Packs/Day Years Used Date Smoking Tobacco: Never Smokeless Tobacco: Never Alcohol Use Standard Drinks/Week Comments Never 0 (1 standard drink = 0.6 oz pur e alcohol) Comments Unknown Sex and Gender Information Value Date Recorded Sex Assigned at Not on file Legal Sex Female 4:08 PM EDT Gender Identity Not on file Sexual Orientation Not on file Last Filed Vital Signs Vital Sign Reading Time Taken Comments Blood Pressure 151/82 05/28/2021 10:26 AM EDT Pulse 93 05/28/2021 10:26 AM EDT Temperature 36.3 ??C (97.3 ??F) 05/28/2021 10:26 AM E DT Respiratory Rate - - Oxygen Saturation - - Inhaled Oxygen Concentration - - Weight 90.7 kg (200 lb) 05/28/2021 10:26 AM EDT Height 154.9 cm (5' 1 ) 05/28/2021 10:26 AM EDT Body Mass Index 37.79 05/28/2021 10:26 AM EDT Plan of Treatment Health Maintenance Due Date Last Done Comments Breast Cancer Screening 1955 Colorectal Cancer Screening: Annual FOBT 2006 Colorectal Cancer Screening: Colonoscopy 2006 Colorectal Cancer Screening: Sigmoidoscopy 2006 Pneumococcal Vaccine: 65+ Ye ars (1 of 1 - PCV) 2022 Influenza Vaccine (#1) 2024 Hepatitis B Vaccine Aged Out No longe r eligible based on patient's age to complete this topic Insurance [employer]BY [id number] Care Teams Hand Woven Carpet And Rug Mender Relationship Specialty Start Date End Date Angel Peraza MD [address] [place], [place] PCP - General Internal Medicine 05/25/21
== END 2024-09-03 14:18 | disposition home or self-care (01) ==
PROVIDERS: PCP Internal Medicine; Visit Provider Internal Medicine
DX: I10 Essential (primary) hypertension (principal)

== ENCOUNTER → 2024-09-03 13:54 | Outpatient (BNVA) | payer OTHER, SELFPAY | PROVIDERS: PCP Internal Medicine; Visit Provider Internal Medicine | DX: I10 Essential (primary) hypertension (principal) | CPT/HCPCS: 96127; 99212 ==

== ENCOUNTER 2024-12-02 10:58 | Outpatient (AMB) | payer OTHER, SELFPAY ==
--- NOTE | 2024-12-02 11:01 | MHC.PC.OV ---
Vital Signs 12/02/24 11:02 Height 5 ft 2 in Weight 185 lb BMI 33.8 BP 148/86 H Blood Pressure Location Lt brachial Position Sitting Intake Visit Reasons: 3M f/u Transfer of care from [facility] Wool Hat Hydraulicker Required: No Accompanied by: Self / Same As Patient Allergies No Known Allergies Allergy (Verified 12/02/24 11:16) Medication List - Last Reviewed 12/02/24 by RAMÓN Bell albuterol sulfate 90 mcg/actuation 2 inhalations inhalation Q6H PRN albuterol sulfate 2.5 mg (3 mL) inhalation Q4H PRN [biotin PO DAILY] blood pressure test kit-large As directed blood pressure test kit-large As directed carbamide peroxide 6.5% (Murine Ear) 2 drps otic (ears) DAILY 4 days cholecalciferol (vitamin D3) 25 mcg PO DAILY commode (bedside commode) As directed dicyclomine 20 mg PO QID gabapentin (Neurontin) 800 mg PO TID levothyroxine 75 mcg PO QAM lisinopril 20 mg PO DAILY lorazepam 0.5 mg PO BID PRN omega-3 fatty acids 1,000 mg PO DAILY pantoprazole 40 mg PO BID [probiotic PO DAILY] simethicone 180 mg PO TID simvastatin 10 mg PO DAILY walker (Ultra-Light Rollator misc) As directed Tobacco use date assessed: 09/03/24 Fall risk assessment: No Falls in past year Last assessed Fall Risk: 12/02/24 Dental Screening Dental Screen Date: 09/03/24 HPI HPI Comments History of Present Illness Details The patient is a 69-year-old female presenting with follow-up for blood pressure management and ear wax evaluation. She reported elevated blood pressure today and is managing her condition with lisinopril 20 mg, although she did not take her medication today. She noted a history of ear wax buildup, concentrated on the right ear, experiencing discomfort which resolved by the next morning. Her prescription usage includes gabapentin, biotin, vitamin D, dicyclomine, levothyroxine, and pantoprazole. Although lorazepam is part of her regimen, she has run out. Past laboratory tests recorded her cholesterol levels as mildly elevated, while thyroid function appeared normal. A bone density test has not been performed. [facility] Medical History (Updated 12/02/24 @ 11:47 by Lesa Montes MD) Obesity Encounter for gynecological examination with Papanicolaou smear of cervix Adult general medical exam Eye exam, routine Post-menopausal Screening for breast cancer Screening for colon cancer Screening for diabetes mellitus Hypothyroidism Hypertension High cholesterol Surgical History History of back surgery History of hysterectomy History of colonoscopy Status post total replacement of left shoulder History of section History of total right knee replacement Family History Father No problems noted. Mother No problems noted. Sister Glaucoma Social History Housing: Apartment Alcohol intake: never Patient Tobacco Use Status: Never used Tobacco Tobacco use type: Cigarette e-Cigarette/Vaping Use: Never Used Second Hand Smoke Exposure: No service: No Current occupational status: retired Cognitive needs: No Hearing needs: No Vision needs: Yes (glasses) Questionnaire Thrive Questionnaire Date Thrive assessed: 09/03/24 CARRIE-7 AMB Questionnaire CARRIE-7 Date CARRIE - 7 assessed: 09/03/24 Source: Developed by Drs. Gordon Shi, Duyen Levine, Chirag Cole and colleagues, with an educational moshe from [employer]. Review of Systems Const All systems reviewed & are unremarkable except as noted in HPI and below Card Denies chest pain at rest, Denies chest pain with activity, Denies edema, Denies irregular heart rhythm, Denies claudication, Denies dyspnea, Denies dyspnea on exertion, Denies orthopnea, Denies paroxysmal nocturnal dyspnea and Denies slow heart rate Resp Denies cough, Denies dyspnea and Denies dyspnea on exertion GI Denies abdominal pain, Denies change in bowel habits, Denies excessive flatus, Denies nausea and Denies vomiting Physical exam (Primary Care) Vital Signs: Last Vital Signs BP 148/86 H 12/02/24 11:02 BMI result Body Mass Index 33.8 BMI Assessment/Plan discussion: High BMI High, discussed plan: lifestyle, weight reduction, dietary and physical activity Tobacco/Smoking Status: Tobacco use Status Tobacco use date assessed 09/03/24 12/02/24 11:09 Patient Tobacco Use Status Never used Tobacco 12/02/24 11:09 Tobacco use type Cigarette 12/02/24 11:09 e-Cigarette/Vaping Use Never Used 12/02/24 11:09 Thrive Assessment: Date of Thrive Assessment Date Thrive assessed 09/03/24 12/02/24 11:09 Resp Effort & Inspection: normal respiratory effort Auscultation: clear to auscultation bilaterally Cardio Jugular venous distension: no JVD Rate: regular rate Rhythm: regular rhythm Heart sounds: S1 normal heart sound present and S2 normal heart sound present Extrem General: Yes full ROM Coding Level of Care Code Est Pt Level 4 (37773) Complex EM visit Add On G2211 Diagnoses Essential hypertension I10 Pure hypercholesterolemia E78.00 Hypothyroidism E03.9 GERD (gastroesophageal reflux disease) K21.9 Hypovitaminosis D E55.9 Time Spent (min) 23 Assessment & Plan Assessment & Plan (1) Essential hypertension: Code(s): I10 - Essential (primary) hypertension Category: Medical (2) Pure hypercholesterolemia: Code(s): E78.00 - Pure hypercholesterolemia, unspecified Category: Medical (3) Hypothyroidism: Code(s): E03.9 - Hypothyroidism, unspecified Category: Medical (4) GERD (gastroesophageal reflux disease): Code(s): K21.9 - Gastro-esophageal reflux disease without esophagitis Category: Medical (5) Hypovitaminosis D: Code(s): E55.9 - Vitamin D deficiency, unspecified Category: Medical Plan The management plan included reinforcing adherence to hypertension medication, exploring eardrop use for relief of any persisting ear pain, maintaining gastric symptom control with prescribed therapies, and considering lifestyle adjustments for constipation. The patient was advised of the importance of her thyroid and lipid management medications, with emphasis on monitoring Vitamin D and potentially pursuing screening for osteoporosis. Follow-up arrangements were made to assess blood pressure and cholesterol levels, ensuring overall effectiveness of her treatment plan. Patient was informed and verbally consented to the use of an ambient scribe for clinic note documentation during this visit. I discussed with the patient the importance of consistently taking lisinopril for hypertension control, emphasizing adherence to medication to prevent complications. We reviewed the management of her ear pain and the successful impact of ear cleaning and eardrop use. I reminded her of the necessity of using GERD and gastrointestinal management drugs effectively. Exploring potential bone density screening was also advised to preclude osteoporosis. Her laboratory test history regarding cholesterol and thyroid was delved into, considering follow-up tests for subsequent monitoring. Follow-up visits are arranged to keep track of her hypertensive and cholesterol levels, ensuring thorough management. Orders: Orders Thyroid Stimulating Hormone Today E03.9 - Hypothyroidism, unspecified XR DEXA axial skeleton Today Z78.0 - Asymptomatic menopausal state Lipid Panel Today E78.5 - Hyperlipidemia, unspecified Comprehensive Met. Panel Today K21.9 - Gastro-esophageal reflux disease without esophagitis Medications: New carbamide peroxide 6.5% (Murine Ear) 2 drps otic (ears) DAILY 4 days 15 mL 3RF carbamide peroxide 6.5% (Murine Ear) 2 drps otic (ears) DAILY 4 days 15 mL 3RF Patient Instructions: - Take lisinopril for blood pressure management daily. - Use ear drops as needed for any ear discomfort. - Continue GERD management with pantoprazole. - Follow the prescribed vitamin D supplement routine. - Schedule and attend follow-up appointments for monitoring blood pressure and cholesterol. - Discuss any bone density scanning options with healthcare providers. - Maintain a healthy lifestyle to prevent constipation.
[2024-12-02 11:02] VITALS: BP 148/86; BMI 33.8
--- OUTSIDE RECORDS SUMMARY | 2024-12-02 12:56 | XMS_ITS | Clinical Summary ---
Author Organization [facility] it Address [address] [place] [phone] Care Team Providers Care B Operator Name Role Phone Angel Peraza MD Primary Care Provider [phone] Surgical History Surgery Date Site/Laterality Comments HYSTERECTOMY PROCEDURE: HISTORICAL HYSTERECTOMY TYMPANOSTOMY TUBE PLACEMENT PROCEDURE: HISTORICAL PE TUBES OTHER SURGICAL HISTORY 07/06/2021 PROCEDURE: [place] ARTHRODESIS POSTERIOR INTERBODY 1 NTRSPC LUMBAR; COMMENT: L3-S1 fusion, (posterior hardware L3-5, autofusion L5-S1) Dr. Garland Medical History Medical History Date Comments Asthma DX:Asthma Essential hypertension DX:Essent ial hypertension Obesity DX:Obesity Social History Tobacco Use Types Packs/Day Years Used Date Smoking Tobacco: Never Smokeless Tobacco: Never Comments Unknown Sex and Gender Information Value Date Recorded Sex Assigned at Not on file Legal Sex Female 5:42 AM EST Gender Identity Not on file Sexual Orientation [...] DTaP,Tdap,and Td Vaccines (1 - Tdap) 1976 Pneumococcal Vaccine: 50+ Years (1 of 1 - PCV) 2007 Zoster Vaccines (1 of 2) 2007 Colorectal Cancer Screening: Colonoscopy 07/14/2022 Depression Screening 07/14/2022 Falls Risk Assessment 07/14/2022 Hepatitis C Screening 07/14/2022 Osteoporosis Screening (Bone Density Screening) 07/14/2022 Social Influencers of Health Screening 07/14/2022 COVID-19 Vaccine (2 - 2023-2 5 season) 2024 11/18/2020 Influenza Vaccine (Season Ended) 2025 06/06/2020, 11/13/2019 RSV Immunization Adult Patients (1 - 1-dose 75+ series) 2032 HIB [...] patient's age to complete this topic Meningococcal B Vaccine Aged Out No l onger eligible based on patient's age to complete this topic RSV Immunization Patients Under 20 months Aged Out No longer eligible b ased on patient's age to complete this topic Varicella Vaccines Aged Out No longer eligible based on patient's age to complete this topic Advance Directives Documents on File Type Date Recorded Patient Senior Compliance Analyst Expl anation Health Care Decision (hx) 07/06/2021 EMILY CRESPO DIRECTIVE Care Teams B Operator Relationship Specialty Start Date End Date Angel Peraza MD [address] [place] [address] [address] [place] [address] PCP - General Internal Medicine 07/18/21
--- OUTSIDE RECORDS SUMMARY | 2024-12-02 12:56 | XMS_ITS | Clinical Summary ---
Author Organization [facility], Address [address] [place] [address] Phone Care Team Providers Care Shuttleless Loom Weaver Name Role Phone Angel Peraza MD Primary Care Provider [phone] Allergies No known active allergies Medications lisinopril [...] Colorectal Cancer Screening: Sigmoidoscopy 2006 Pneumococcal Vaccine: 50+ Ye ars (1 of 1 - PCV) 2007 Influenza Vaccine (Season Ended) 2025 Hepatitis B Vaccine Aged Out No longe r eligible based on patient's age to complete this topic Insurance [employer]BY [id number] Care Teams Shuttleless Loom Weaver Relationship Specialty Start Date End Date Angel Peraza MD [address] [place], [place] PCP - General Internal Medicine 05/25/21
== END 2024-12-02 11:29 | disposition home or self-care (01) ==
LOC: HO.HMCH 10:59
PROVIDERS: PCP Internal Medicine; Visit Provider Internal Medicine
DX: I10 Essential (primary) hypertension (principal); E78.00 Pure hypercholesterolemia, unspecified; E03.9 Hypothyroidism, unspecified; K21.9 Gastro-esophageal reflux disease without esophagitis; E55.9 Vitamin D deficiency, unspecified

== ENCOUNTER → 2024-12-02 10:58 | Outpatient (BNVA) | payer OTHER, SELFPAY | PROVIDERS: PCP Internal Medicine; Visit Provider Internal Medicine | DX: I10 Essential (primary) hypertension (principal); E78.00 Pure hypercholesterolemia, unspecified; E03.9 Hypothyroidism, unspecified; K21.9 Gastro-esophageal reflux disease without esophagitis; E55.9 Vitamin D deficiency, unspecified; Z78.0 Asymptomatic menopausal state | CPT/HCPCS: 99212 ==

== ENCOUNTER 2024-12-08 13:00 | Outpatient (AMB) | payer OTHER, SELFPAY ==
[2024-12-08 13:15] VITALS: BP 136/67; PULSE 87; O2SAT 95; BMI 33.8
--- NOTE | 2024-12-08 13:15 | MHC.OFFVIS ---
Vital Signs 12/08/24 13:15 Height 5 ft 2 in Weight 185 lb BMI 33.8 BP 136/67 Blood Pressure Location Lt brachial Position Sitting Pulse 87 Pulse Oximetry (%) 95 Oxygen Delivery Method Room Air Intake Visit Reasons: medication check Intake Note: Patient follow up for med check, xavier was 06/19/2023 for abd bloating. Patient cc: gassy and abdominal bloating. Knot Bumper Required: Yes Knot Bumper Name: C interpeter Accompanied by: Self / Same As Patient Allergies No Known Allergies Allergy (Verified 12/08/24 13:14) HPI HPI medication check: Details: Assessment & Plan (1) GERD (gastroesophageal reflux disease): Code(s): K21.9 - Gastro-esophageal reflux disease without esophagitis (2) Upper abdominal pain: Code(s): R10.10 - Upper abdominal pain, unspecified (3) Abdominal bloating: Code(s): R14.0 - Abdominal distension (gaseous) Plan [place] Allen Melvin Sent another note. ? if they are not leaving [facility] in [place]. She continues to do much better with her GI medications. She did receive the simethicone and finds it helpful; but she still will have episodes of bloating and she has not noticed if any food causes it and it is only happening occasionally now. Will give FODMAP list for he consideration. She has changed to almond milk form whole milk. She continues on her pantoprazole on her dicyclomine. ROV 6 mos. Medications: New simethicone 180 mg PO TID 90 caps 6RF Refilled dicyclomine 20 mg PO QID 120 tabs 6RF pantoprazole 40 mg PO BID 60 tabs 1RF K22.10 - Ulcer of esophagus without bleeding [place] Allen Melvin Sent another note. ? if they are not leaving [facility] [place]. She continues to do much better with her GI medications. She did receive the simethicone and finds it helpful; but she still will have episodes of bloating and she has not noticed if any food causes it and it is only happening occasionally now. Will give FODMAP list for he consideration. She has changed to almond milk form whole milk. She continues on her pantoprazole on her dicyclomine. ROV 6 mos. Medications: New simethicone 180 mg PO TID 90 caps 6RF Refilled dicyclomine 20 mg PO QID 120 tabs 6RF pantoprazole 40 mg PO BID 60 tabs 1RF K22.10 - Ulcer of esophagus without bleeding COLONOSCOPY 09/18/23 Findings: Terminal Ileum-normal Cecum:normal Right sided retroflexion- scattered diverticula seen Ascending Colon: 3-5 mm sessile polyp removed with cold forceps Transverse Colon -normal Descending Colon:normal Sigmoid Colon: moderate severe diverticulosis noted Rectum: Retroflexion with small internal hemorrhoids, grade I Anorectum - normal Impression and Post Procedure Diagnosis: polyp internal hemorrhoids diverticular disease Plan: High fiber diet leaflet Avoid straining at stool, epsom salts and sitz bath, anusol supps or cream Repeat Colonoscopy in 5-7 years due to polyp or earlier if clinically indicated BIOPSY Received: 09/18/23 Diagnosis Colon, ascending, polypectomy: Colonic mucosa with mild surface hyperplastic changes and small lymphoid aggregate; multiple additional levels examined. TODAY'S VISIT [place] #Christine Melvin The procedure should be repeated in 5-7 years given her history of polyps on a prior exam although the 1 today was not a true precancerous polyp. The procedure was well tolerated. The results were explained and the patient is agreeable to the follow-up interval as stated. The bowel pattern has returned to normal. Education was provided to tell any 1st degree relatives about their findings to be sure that they are screened by age 45. Educated that they will be put on a recall list when it is time for their repeat scope but should they move out of state or away from the hospital they will need to remember along with their primary to repeat the procedure in a timely fashion to avoid any adverse complications. She is on pantoprazole, simethicone, and dicyclomine.SHe is doing fairly well, but stopped taking the bentyl r/t the overwhelming total pill burden with a all of her chronic medications. However she is complaining of borborygmus so I explained to her that this is not harmful but it is embarrassing is her would be best to use the dicyclomine. She agrees that she will use it p.r.n. especially if she goes out to eat and this is a decision she can abide by. She continues on her pantoprazole and her simethicone and overall is satisfied with her GI regimen. Return office visit in 6 months [facility] Medical History (Updated 12/08/24 @ 14:06 by BERTHA Pemberton) Dyspnea Elevated amylase Thoracic back pain Pure hypercholesterolemia Essential hypertension Pre-op exam Back pain Spinal stenosis of lumbar region Post-menopausal Cervical cancer screening COVID-19 Upper abdominal pain Upper abdominal pain Pre-op examination Physical exam Obesity Encounter for gynecological examination with Papanicolaou smear of cervix Adult general medical exam Eye exam, routine Screening for breast cancer Screening for colon cancer Screening for diabetes mellitus Hypothyroidism Hypertension High cholesterol Surgical History (Updated 12/08/24 @ 14:06 by BERTHA Pemberton) History of arthroplasty of left shoulder History of back surgery History of hysterectomy History of colonoscopy Status post total replacement of left shoulder History of section History of total right knee replacement Family History Father No problems noted. Mother No problems noted. Sister Glaucoma Social History Housing: Apartment Alcohol intake: never Patient Tobacco Use Status: Never used Tobacco Tobacco use type: Cigarette e-Cigarette/Vaping Use: Never Used Second Hand Smoke Exposure: No service: No Current occupational status: retired Cognitive needs: No Hearing needs: No Vision needs: Yes (glasses) Review of Systems Const Denies fatigue, Denies fever(s), Denies night sweats, Denies poor appetite and Denies weight loss ENT Reports Normal hearing present, Denies dental pain, Denies dysphagia, Denies hearing loss, Denies mouth pain, Denies odynophagia, Denies throat swelling, Denies tongue swelling and Reports other (Dentition adequate) Card Reports no additional complaints Resp Reports no additional complaints GI Details: Denies abdominal pain, Denies melena, Reports bloating, Denies hematochezia, Denies constipation, Reports GI cramping, Denies dysphagia, Denies excessive flatus, Denies early satiety, Reports heartburn, Denies diarrhea, Denies nausea, Denies odynophagia, Denies vomiting and Denies hematemesis Skin/Breast Denies pruritus, Denies lesions, Denies rash and Denies jaundice Neuro Reports Normal hearing present and Denies Abnormal speech present Endo Denies fatigue Aller/Immun Denies throat swelling and Denies tongue swelling Physical Exam Vital Signs: Last Vital Signs Pulse 87 12/08/24 13:15 BP 136/67 12/08/24 13:15 Pulse Ox 95 12/08/24 13:15 Oxygen Delivery Method Room Air 12/08/24 13:15 BMI result Body Mass Index 33.8 Const General: cooperative, no acute distress, well developed and well groomed Nutritional Appearance: well nourished and obese Orientation/consciousness: oriented to person, oriented to place and oriented to time Limitations: language barrier HEENT Head: Yes normocephalic and Yes atraumatic Eyes General: appearance normal, both eyes and all related structures Pupils: Equal, round and reactive pupils present Neck Neck: Yes normal visual inspection and Yes no lymphadenopathy Thyroid: Thyroid normal Resp Effort & Inspection: normal respiratory effort and able to speak in complete sentences Auscultation: clear to auscultation bilaterally Cardio Rate: regular rate Rhythm: regular rhythm Heart sounds: Normal, physiologic split S2 sound present Peripheral pulses: radial pulses present and posterior tibial pulses present GI Inspection: No distended, Yes Abdominal panniculus present and Yes obesity Palpation (GI): Soft to palpation, nontender, no guarding, not rigid and No hepatosplenomegaly present Percussion: Yes normal to percussion Auscultation: normal bowel sounds Rectal Exam - Female: deferred Skin General skin exam: no rashes or lesions noted, turgor normal, skin not dry, no jaundice, No spider nevi and no striae Rashes: no rashes Nails: normal Neuro General: oriented to person, oriented to place and oriented to time Cranial nerves: Yes Equal, round and reactive pupils present and Yes Normal hearing present Speech: No Abnormal speech present Extrem General: Yes normal to inspection, No clubbing, No cyanosis and No edema Psych Appearance: grossly normal and well kempt Mental Status: mental status grossly normal Speech and movement: Normal speech and movement present Affect: normal affect Attitude: cooperative Thought process: Normal thought process present and not confabulating Thought content: Normal thought content present Insight: Limited insight present (Psych) Judgement: Limited judgement present (Psych) Assessment & Plan Assessment & Plan (1) Abdominal bloating: Code(s): R14.0 - Abdominal distension (gaseous) Category: Medical (2) GERD (gastroesophageal reflux disease): Code(s): K21.9 - Gastro-esophageal reflux disease without esophagitis Category: Medical (3) Abdominal cramping: Code(s): R10.9 - Unspecified abdominal pain Category: Medical (4) Esophageal ulcer: Code(s): K22.10 - Ulcer of esophagus without bleeding Category: Medical Plan [place] #Christine Charles The procedure should be repeated in 5-7 years given her history of polyps on a prior exam although the 1 today was not a true precancerous polyp. The procedure was well tolerated. The results were explained and the patient is agreeable to the follow-up interval as stated. The bowel pattern has returned to normal. Education was provided to tell any 1st degree relatives about their findings to be sure that they are screened by age 45. Educated that they will be put on a recall list when it is time for their repeat scope but should they move out of state or away from the hospital they will need to remember along with their primary to repeat the procedure in a timely fashion to avoid any adverse complications. She is on pantoprazole, simethicone, and dicyclomine.SHe is doing fairly well, but stopped taking the bentyl r/t the overwhelming total pill burden with a all of her chronic medications. However she is complaining of borborygmus so I explained to her that this is not harmful but it is embarrassing is her would be best to use the dicyclomine. She agrees that she will use it p.r.n. especially if she goes out to eat and this is a decision she can abide by. She continues on her pantoprazole and her simethicone and overall is satisfied with her GI regimen. Return office visit in 6 months Coding Level of Care Code Est Pt Level 3 (78778) Diagnoses Abdominal bloating R14.0 GERD (gastroesophageal reflux disease) K21.9 Abdominal cramping R10.9 Esophageal ulcer K22.10
--- OUTSIDE RECORDS SUMMARY | 2024-12-08 14:18 | XMS_ITS | Clinical Summary ---
Author Organization [facility] it Address [id number] [id number] Care Team Providers Care Transportation Consultant Name Role Phone Angel Peraza MD Primary Care Provider [phone] Surgical History Surgery Date Site/Laterality Comments HYSTERECTOMY PROCEDURE: HISTORICAL HYSTERECTOMY TYMPANOSTOMY TUBE PLACEMENT PROCEDURE: HISTORICAL PE TUBES OTHER SURGICAL HISTORY 07/06/2021 PROCEDURE: [place] ARTHRODESIS POSTERIOR INTERBODY 1 NTRSPC LUMBAR; COMMENT: [...] Documents on File Type Date Recorded Patient Target Setter Expl anation Health Care Decision (hx) 07/06/2021 EMILY CRESPO DIRECTIVE Care Teams Transportation Consultant Relationship Specialty Start Date End Date Angel Peraza MD [address] [place] [address] [address] [place] [address] PCP - General Internal Medicine 07/18/21
--- OUTSIDE RECORDS SUMMARY | 2024-12-08 14:18 | XMS_ITS | Clinical Summary ---
Author Organization [facility], Address [address] [place] [address] Phone Care Team Providers Care Body Sander Name Role Phone Angel Peraza MD Primary Care Provider [phone] Allergies No known active allergies Medications lisinopril [...] to complete this topic Insurance JEN BUSBY [id number] Care Teams Body Sander Relationship Specialty Start Date End Date Angel Peraza MD [address] [place], [place] PCP - General Internal Medicine 05/25/21
== END 2024-12-08 14:04 | disposition home or self-care (01) ==
LOC: HO.HGI 13:01
PROVIDERS: PCP Internal Medicine; Visit Provider Nurse Practitioner
DX: R14.0 Abdominal distension (gaseous) (principal); K21.9 Gastro-esophageal reflux disease without esophagitis; R10.9 Unspecified abdominal pain; K22.10 Ulcer of esophagus without bleeding
CPT/HCPCS: 99213

== ENCOUNTER → 2024-12-08 13:00 | Outpatient (BNVA) | payer OTHER, SELFPAY | PROVIDERS: PCP Internal Medicine; Visit Provider Nurse Practitioner | DX: K21.9 Gastro-esophageal reflux disease without esophagitis (principal); R14.0 Abdominal distension (gaseous); R10.9 Unspecified abdominal pain; K22.10 Ulcer of esophagus without bleeding | CPT/HCPCS: 99212 ==

== ENCOUNTER → 2024-12-23 10:34 | Outpatient (BNVA) | payer OTHER, SELFPAY | PROVIDERS: PCP Internal Medicine ==

== ENCOUNTER 2025-01-06 11:05 | Outpatient (REF) | payer OTHER, SELFPAY ==
--- NOTE | ~2025-01-06 | MM_ITS ---
EXAMINATION: DXA BONE DENSITY AXIAL HISTORY: Z78.0 - Asymptomatic menopausal state TECHNIQUE: [employer] Dual energy absorptiometry (DEXA) of the lumbar spine, total left hip, and femoral neck was performed. COMPARISON: Comparison is made with the prior examination dated 06/05/2021. FINDINGS: The bone mineral density of the lumbar spine from L1-L2 is 1.689, corresponding to a T-score of 4.4, and a Z-score of 5.4. This is indicative of normal bone mineral density. This represents a BMD change of 45.2% compared to the prior exam. This is statistically significant. This is likely artificially elevated due to degenerative disc disease. The bone mineral density of the left total hip is 0.791, corresponding to a T-score of -1.7, and a Z-score of -0.8. This is indicative of osteopenia. This represents a BMD change of -5.0% compared to the prior exam. This is statistically significant. The bone mineral density of the left femoral neck is 0.914, corresponding to a T-score of -0.9, and a Z-score of 0.3. This is indicative of normal bone mineral density. This represents a BMD change of 35.8% compared to the prior exam. FRACTURE RISK: The FRAX index suggests a ten year probability of major osteoporotic fracture of 4.3%, and of hip fracture 0.3%. MM/XR DEXA axial skeleton IMPRESSION: Based on bone mineral density, and according to World Health Organization (WHO) criteria, the diagnosis is consistent with osteopenia. All bone density values are in grams per centimeter squared (g/cm2). Statistically, 68% of repeat scans fall within 1 SD (+/- 0.010 g/cm2 for AP spine L1-L4) and 1 SD (+/- 0.012 g/cm2 for femur total) FRAX is a trademark of the [employer] [place] for Metabolic Bone Disease, a World Health Organization (WHO) Collaborating Center. Electronically signed by: Gordon Morrison MD 01/06/2025 01:03 PM EDT
--- OUTSIDE RECORDS SUMMARY | 2025-01-06 11:32 | XMS_ITS | Clinical Summary ---
Author Organization [facility] it Address [id number] [place] [id number] Care Team Providers Care Surgical Oncologist Name Role Phone Angel Peraza MD Primary Care Provider Surgical History Surgery Date Site/Laterality Comments HYSTERECTOMY PROCEDURE: HISTORICAL HYSTERECTOMY TYMPANOSTOMY TUBE PLACEMENT PROCEDURE: HISTORICAL PE TUBES OTHER SURGICAL HISTORY 07/06/2021 PROCEDURE: [place] ARTHRODESIS POSTERIOR INTERBODY 1 NTRSPC LUMBAR; COMMENT: [...] Documents on File Type Date Recorded Patient Visual Merchandising Manager Expl anation Health Care Decision (hx) 07/06/2021 EMILY CRESPO DIRECTIVE Care Teams Surgical Oncologist Relationship Specialty Start Date End Date Angel Peraza MD [address] [place] [address] [address] [place] [address] PCP - General Internal Medicine 07/18/21
== END 2025-01-06 11:06 | disposition home or self-care (01) ==
LOC: HO.MAMMO 11:05
PROVIDERS: PCP Internal Medicine; Visit Provider Internal Medicine
DX: Z13.820 Encounter for screening for osteoporosis (principal); Z78.0 Asymptomatic menopausal state
CPT/HCPCS: 77080

== ENCOUNTER → 2025-01-06 11:30 | Outpatient (BNV) | payer OTHER, SELFPAY | PROVIDERS: PCP Internal Medicine; Visit Provider Radiology Diagnostic Radiology | DX: E28.39 Other primary ovarian failure (principal) | CPT/HCPCS: 77080 ==

== ENCOUNTER 2025-04-25 12:42 | Outpatient (REF) | payer OTHER, SELFPAY ==
--- NOTE | ~2025-04-25 | MM_ITS ---
EXAMINATION: MM SCREENING DIGITAL BREAST TOMOSYNTHESIS, BILATERAL CLINICAL INFORMATION: Screening. Asymptomatic. COMPARISON: Comparison made to multiple prior, most recent April 20, 2024, and most remote June 05, 2021. TECHNIQUE: Digital breast tomosynthesis is performed in mediolateral oblique and craniocaudal views along with computer-aided detection (CAD). Synthesized 2D images are generated from the tomosynthesis. FINDINGS: BREAST COMPOSITION: The breasts are heterogeneously dense, which may obscure small masses (ACR BI-RADS breast composition Category c). RIGHT BREAST: Tissue marker from previous needle core biopsy. No significant masses, suspicious calcifications or other abnormalities are seen. LEFT BREAST: No significant masses, suspicious calcifications or other abnormalities are seen. MM/MM tomosynthesis screening BI IMPRESSION: BILATERAL BREASTS: Benign, no mammographic evidence of malignancy. Normal interval follow-up is recommended in 12 months. ASSESSMENT: BI-RADS 2 - Benign Findings RECOMMENDATION: Routine annual mammography screening. FOLLOW-UP: 1 year F/U This examination should not preclude the clinical evaluation of a suspicious palpable abnormality. This patient's information was entered into a reminder system with a target due date for their next mammogram. Electronically signed by: Gavino Jaramillo MD 04/26/2025 05:59 PM EDT
--- OUTSIDE RECORDS SUMMARY | 2025-04-25 17:24 | XMS_ITS | Clinical Summary ---
Author Organization [facility] it Address [address] [place] [address] Care Team Providers Care Application Software Engineer Name Role Phone Angel Peraza MD Primary Care Provider [phone] Surgical History Surgery Date Site/Laterality Comments HYSTERECTOMY PROCEDURE: HISTORICAL HYSTERECTOMY TYMPANOSTOMY TUBE PLACEMENT PROCEDURE: HISTORICAL PE TUBES OTHER SURGICAL HISTORY 07/06/2021 PROCEDURE: [place] ARTHRODESIS POSTERIOR INTERBODY 1 NTRSPC LUMBAR; COMMENT: [...] 2) 2007 Colorectal Cancer Screening: Colonoscopy 07/14/2022 Falls Risk Assessment 07/14/2022 Hepatitis C Screening 07/14/2022 Osteoporosis Screening (Bone Density Screening) 07/14/2022 Social Influencers of Health Screening 07/14/2022 Depression Screening 08/11/2024 COVID-19 Vaccine (2 - 2024-2 6 season) 2025 11/18/2020 Influenza Vaccine (#1) 2025 0, 11/13/2019 RSV Immunization Adult Patients (1 - [...] Documents on File Type Date Recorded Patient Inside Barrel Lathe Operator Expl anation Health Care Decision (hx) 07/06/2021 EMILY CRESPO DIRECTIVE Care Teams Application Software Engineer Relationship Specialty Start Date End Date Angel Peraza MD [address] [place] [address] Drive [address] [place] [address] PCP - General Internal Medicine 07/18/21
--- OUTSIDE RECORDS SUMMARY | 2025-04-25 17:24 | XMS_ITS | Clinical Summary ---
Author Organization [facility], Address [address] [place] [address] Phone Care Team Providers Care Teacher Education Instructor Name Role Phone Angel Peraza MD Primary Care Provider [phone] Allergies No known active allergies Medications lisinopril [...] 93 05/28/2021 10:26 AM EDT Temperature 36.3 C (97.3 F) 05/28/2021 10:26 AM EDT Respiratory Rate - - Oxygen Saturation - [...] of 1 - PCV) 2007 Influenza Vaccine (#1) 2025 Hepatitis B Vaccine Aged Out No longe r eligible based on patient's age to complete this topic Insurance JEN BUSBY [id number] Care Teams Teacher Education Instructor Relationship Specialty Start Date End Date Angel Peraza MD [address] [place], [place] PCP - General Internal Medicine 05/25/21
== END 2025-04-25 12:43 | disposition home or self-care (01) ==
LOC: HO.MAMMO 12:42
PROVIDERS: Absent Provider Internal Medicine; PCP Internal Medicine; Visit Provider Internal Medicine
DX: Z12.31 Encounter for screening mammogram for malignant neoplasm of breast (principal)
CPT/HCPCS: 77063; 77067

== ENCOUNTER → 2025-04-25 13:00 | Outpatient (BNV) | payer OTHER, SELFPAY | PROVIDERS: Absent Provider Internal Medicine; PCP Internal Medicine; Visit Provider Radiology Body Imaging | DX: Z12.31 Encounter for screening mammogram for malignant neoplasm of breast (principal) | CPT/HCPCS: 77063; 77067 ==

== ENCOUNTER 2025-05-24 10:48 | Outpatient (AMB) | payer OTHER, SELFPAY ==
--- NOTE | 2025-05-24 10:51 | A.OFFPC_ITS ---
Vital Signs 05/24/25 10:54 Height 5 ft 2 in Weight 185 lb 6 oz BMI 33.9 BP 138/80 Blood Pressure Location Lt brachial Position Sitting Respiration 18 Pulse 94 Pulse Source Pulse Oximeter Temp 97.1 F Temp Source Temporal Artery Scan Pulse Oximetry (%) 94 Oxygen Delivery Method Room Air Intake Visit Reasons: physical exam Broadcast Engineer Required: No Accompanied by: Self / Same As Patient Allergies No Known Allergies Allergy (Verified 05/24/25 11:04) Medication List - Last Reconciled 05/24/25 by Lesa Montes MD albuterol sulfate 2.5 mg (3 mL) inhalation Q4H PRN albuterol sulfate 90 mcg/actuation 2 inhalations inhalation Q6H PRN [biotin PO DAILY] blood pressure test kit-large As directed blood pressure test kit-large As directed carbamide peroxide 6.5% (Murine Ear) 2 drps otic (ears) DAILY 4 days cholecalciferol (vitamin D3) 25 mcg PO DAILY commode (bedside commode) As directed dicyclomine 20 mg PO QID gabapentin (Neurontin) 800 mg PO TID levothyroxine 75 mcg PO QAM lisinopril 20 mg PO DAILY lorazepam 0.5 mg PO BID PRN omega-3 fatty acids 1,000 mg PO DAILY pantoprazole 40 mg PO BID [probiotic PO DAILY] simethicone 180 mg PO TID simvastatin 10 mg PO DAILY walker (Ultra-Light Rollator misc) As directed Tobacco use date assessed: 05/24/25 Fall risk assessment: No Falls in past year Last assessed Fall Risk: 05/24/25 Dental Screening Dental Screen Date: 05/24/25 Did you have a dental visit in the last 12 months?: Yes Did you have a dental problem in the last 6 months where you did not have access to dental care?: No Was dental information given to patient?: Patient has dentist HPI HPI Comments History of Present Illness Details The patient is a 70-year-old female presenting for an annual physical examination and preventative care. She complains of left hip pain and right shoulder pain and will be referred to ortho. She has a history of left shoulder arthropathy, which has previously required surgical intervention, including a shoulder replacement. The patient reports difficulty with activities such as combing her hair and sleeping due to shoulder discomfort. Her medical history includes hypertension managed with lisinopril, hypothyroidism treated with levothyroxine, and gastroesophageal reflux disease for which she takes pantoprazole. She also takes gabapentin for neuropathic pain, vitamin D supplements, lorazepam for anxiety, and simeticone for gastrointestinal discomfort. The patient has undergone several surgeries, including a hysterectomy, sections, and a right knee replacement. She does not smoke or consume alcohol and has received vaccinations for influenza, zoster, tetanus, and pneumonia, keeping her up to date with preventative care measures. - Colonoscopy performed last year - Vaccinations: Influenza, zoster, tetan us, and pneumonia -mammogram perform this year -DEXA scan done this year [facility] Medical History (Updated 05/24/25 @ 11:56 by Lesa Montes MD) Physical exam Dyspnea Elevated amylase Thoracic back pain Pure hypercholesterolemia Essential hypertension Pre-op exam Back pain Spinal stenosis of lumbar region Post-menopausal Cervical cancer screening COVID-19 Upper abdominal pain Upper abdominal pain Pre-op examination Obesity Encounter for gynecological examination with Papanicolaou smear of cervix Adult general medical exam Eye exam, routine Screening for breast cancer Screening for colon cancer Screening for diabetes mellitus Hypothyroidism Hypertension High cholesterol Surgical History History of arthroplasty of left shoulder History of back surgery History of hysterectomy History of colonoscopy Status post total replacement of left shoulder History of section History of total right knee replacement Family History Father No problems noted. Mother No problems noted. Sister Glaucoma Social History Housing: Apartment Alcohol intake: never Patient Tobacco Use Status: Never used Tobacco Tobacco use type: Cigarette e-Cigarette/Vaping Use: Never Used Second Hand Smoke Exposure: No service: No Current occupational status: retired Cognitive needs: No Hearing needs: No Vision needs: Yes (glasses) Questionnaire Thrive Questionnaire Date Thrive assessed: 09/03/24 CARRIE-7 AMB Questionnaire CARRIE-7 Date CARRIE - 7 assessed: 09/03/24 Source: Developed by Drs. Gordon Shi, Duyen Levine, Chirag Cole and colleagues, with an educational moshe from [employer]. Review of Systems Const All systems reviewed & are unremarkable except as noted in HPI and below Card Denies chest pain at rest, Denies chest pain with activity, Denies edema, Denies irregular heart rhythm, Denies claudication, Denies dyspnea, Denies dyspnea on exertion, Denies orthopnea, Denies paroxysmal nocturnal dyspnea and Denies slow heart rate Resp Denies cough, Denies dyspnea and Denies dyspnea on exertion GI Denies abdominal pain, Denies change in bowel habits, Denies excessive flatus, Denies nausea and Denies vomiting Physical exam (Primary Care) Vital Signs: Last Vital Signs Temp 97.1 F 05/24/25 10:54 Pulse 94 05/24/25 10:54 Resp 18 05/24/25 10:54 BP 138/80 05/24/25 10:54 Pulse Ox 94 05/24/25 10:54 Oxygen Delivery Method Room Air 05/24/25 10:54 BMI result Body Mass Index 33.9 BMI Assessment/Plan discussion: High BMI High, discussed plan: lifestyle, weight reduction, dietary and physical activity Tobacco/Smoking Status: Tobacco use Status Tobacco use date assessed 05/24/25 05/24/25 11:01 Patient Tobacco Use Status Never used Tobacco 05/24/25 10:52 Tobacco use type Cigarette 05/24/25 10:52 e-Cigarette/Vaping Use Never Used 05/24/25 10:52 Thrive Assessment: Date of Thrive Assessment Date Thrive assessed 09/03/24 05/24/25 10:52 [facility] Head: Yes normal to inspection, Yes normocephalic and Yes atraumatic Ears: external ears normal Eyes General: appearance normal, both eyes and all related structures Eyelids: Yes eyelids normal Conjunctivae: conjunctivae normal Neck Neck: Yes normal visual inspection and Yes supple Resp Effort & Inspection: normal respiratory effort Auscultation: clear to auscultation bilaterally Cardio Jugular venous distension: no JVD Rate: regular rate Rhythm: regular rhythm Heart sounds: S1 normal heart sound present and S2 normal heart sound present GI Inspection: Yes normal to inspection Palpation (GI): Soft to palpation and nontender Auscultation: normal bowel sounds Skin General skin exam: no rashes or lesions noted Neuro General: no focal motor deficits Extrem General: Yes full ROM Psych Appearance: grossly normal Coding Level of Care Code Est Pt Level 3 (12584) Est Pt Prev Care >65y(60853) Diagnoses Physical exam Z00.00 Left hip pain M25.552 Right shoulder pain M25.511 Time Spent (min) 35 Assessment & Plan Assessment & Plan (1) Physical exam: Code(s): Z00.00 - Encounter for general adult medical examination without abnormal findings Category: Medical (2) Left hip pain: Code(s): M25.552 - Pain in left hip Category: Medical (3) Right shoulder pain: Code(s): M25.511 - Pain in right shoulder Category: Medical Plan Plan Patient was informed and verbally consented to the use of an ambient scribe for clinic note documentation during this visit. 1. Physical exam The patient underwent a colonoscopy last year, which is part of her routine preventative care. The patient is up to date with vaccinations, including influenza, zoster, tetanus, and pneumonia. 2. Left Shoulder Arthropathy The patient reports significant discomfort in the left shoulder, affecting her ability to perform daily activities such as combing her hair and sleeping. A surgical history of shoulder replacement is noted, and further evaluation may be necessary to assess current function and pain management strategies. 3. Right shoulder pain Referred to ortho. X-ray ordered. Orders: Orders XR hip LT min 2V Today M25.552 - Pain in left hip Lipid Panel Today E78.5 - Hyperlipidemia, unspecified XR shoulder RT min 2V Today M25.511 - Pain in right shoulder Vitamin D 25-OH Total Today E55.9 - Vitamin D deficiency, unspecified Thyroid Stimulating Hormone Today E03.9 - Hypothyroidism, unspecified Comprehensive Jarrell. Panel Fast Today I10 - Essential (primary) hypertension Referrals Orthopedics Referral M25.511 - Pain in right shoulder, M25.552 - Pain in left hip
[2025-05-24 10:54] VITALS: BP 138/80; PULSE 94; RESP 18; TEMP 36.2; O2SAT 94; BMI 33.9
--- OUTSIDE RECORDS SUMMARY | 2025-05-24 12:54 | XMS_ITS | Clinical Summary ---
Author Organization [facility] it Address [id number] [place] [id number] Care Team Providers Care Service Developer Name Role Phone Angel Peraza MD Primary Care Provider [phone] Surgical History Surgery Date Site/Laterality Comments HYSTERECTOMY PROCEDURE: HISTORICAL HYSTERECTOMY TYMPANOSTOMY TUBE PLACEMENT PROCEDURE: HISTORICAL PE TUBES OTHER SURGICAL HISTORY 07/06/2021 PROCEDURE: MD ARTHRODESIS POSTERIOR INTERBODY 1 NTRSPC LUMBAR; COMMENT: [...] Breast Cancer Screening 1957 Colorectal Cancer Screening: Colonoscopy 1957 DTaP,Tdap,and Td Vaccines (1 - Tdap) 1976 Pneumococcal Vaccine: 50+ Years (1 of 1 - PCV) 2007 Zoster Vaccines (1 of 2) 2007 Falls Risk Assessment 07/14/2022 Hepatitis C Screening [...] Documents on File Type Date Recorded Patient Environmental Web Crawler Expl anation Health Care Decision (hx) 07/06/2021 EMILY CRESPO DIRECTIVE Care Teams Service Developer Relationship Specialty Start Date End Date Angel Peraza MD [address] [place] [address] Drive [address] [place] [address] PCP - General Internal Medicine 07/18/21
--- OUTSIDE RECORDS SUMMARY | 2025-05-24 12:54 | XMS_ITS | Clinical Summary ---
Author Organization [facility], Address [address] [place] [address] Phone Care Team Providers Care Pants Closer Name Role Phone Angel Peraza MD Primary Care Provider [phone] Allergies No known active allergies Medications lisinopril [...] to complete this topic Insurance JEN BUSBY [id number] Care Teams Pants Closer Relationship Specialty Start Date End Date Angel Peraza MD [address] [place], [place] PCP - General Internal Medicine 05/25/21
== END 2025-05-24 11:19 | disposition home or self-care (01) ==
LOC: HO.HMCH 10:49
PROVIDERS: PCP Internal Medicine; Visit Provider Internal Medicine
DX: Z00.00 Encounter for general adult medical examination without abnormal findings (principal); M25.552 Pain in left hip; M25.511 Pain in right shoulder

== ENCOUNTER → 2025-05-24 10:48 | Outpatient (BNVA) | payer OTHER, SELFPAY | PROVIDERS: PCP Internal Medicine; Visit Provider Internal Medicine | DX: Z00.00 Encounter for general adult medical examination without abnormal findings (principal); M25.552 Pain in left hip; M25.511 Pain in right shoulder; I10 Essential (primary) hypertension; E78.5 Hyperlipidemia, unspecified; E55.9 Vitamin D deficiency, unspecified; E03.9 Hypothyroidism, unspecified | CPT/HCPCS: 99212; 99397 ==

== ENCOUNTER 2025-08-09 10:41 | Outpatient (REF) | payer OTHER, SELFPAY ==
--- NOTE | ~2025-08-09 | XR_ITS ---
EXAMINATION: XR SHOULDER 2 OR MORE VIEWS RIGHT HISTORY: M25.511 - Pain in right shoulder COMPARISON: There are no prior studies available for comparison. FINDINGS: Four views of the right shoulder are submitted. Osseous mineralization is normal. There is no fracture or dislocation. There is severe osteoarthritis of the glenohumeral joint, with joint space narrowing and osteophyte formation. There is moderate to severe degenerative change of the AC joint. The soft tissues are unremarkable. XR/XR shoulder RT min 2V IMPRESSION: Degenerative changes of the right shoulder as described. Electronically signed by: Gordon Morrison MD 08/09/2025 11:42 AM [facility]
--- NOTE | ~2025-08-09 | XR_ITS ---
EXAMINATION: XR HIP 2 OR MORE VIEWS LEFT HISTORY: M25.552 - Pain in left hip COMPARISON: There are no prior studies available for comparison. FINDINGS: Two views of the left hip are submitted. Osseous mineralization is normal. There is no fracture or dislocation. There is severe osteoarthritis with joint space narrowing, osteophyte formation, and subchondral cyst formation. The patient is status post lower lumbar fusion. The soft tissues are unremarkable. XR/XR hip LT min 2V IMPRESSION: Severe osteoarthritis. Electronically signed by: Gordon Morrison MD 08/09/2025 11:43 AM [facility]
[2025-08-09 12:55] LABS: Alanine Aminotransferase 21 U/L (0-31); Albumin Level 4.2 g/dL (3.5-5.0); Alkaline Phosphatase 102 U/L (39-117); Anion Gap 12 (12-20); Aspartate Amino Transferase 25 U/L (5-31); Blood Urea Nitrogen 19 mg/dL (9-16); Calcium 9.6 mg/dL (8.4-10.2); Carbon Dioxide 29 mmol/L (22-29); Chloride 106 mmol/L (96-108); Cholesterol 210 mg/dL (<200); Estimated Glomerular Filt Rate > 60; HDL Cholesterol 34 mg/dL (>40); Potassium 4.3 mmol/L (3.3-5.1); Sodium 143 mmol/L (135-145); Total Protein 7.6 g/dL (6.5-8.0); Triglycerides 176 mg/dL (<150)
[2025-08-09 13:12] LABS: Thyroid Stimulating Hormone 1.71 uIU/mL (0.32-4.0)
--- OUTSIDE RECORDS SUMMARY | 2025-08-09 14:20 | XMS_ITS | Clinical Summary ---
Author Organization [facility], Address [address] [place] [address] Phone Care Team Providers Care Brand Representative Name Role Phone Angel Peraza MD Primary Care Provider [phone] Allergies No known active allergies Medications lisinopril [...] to complete this topic Insurance JEN BUSBY [id number] Care Teams Brand Representative Relationship Specialty Start Date End Date Angel Peraza MD [address] [place], [place] PCP - General Internal Medicine 05/25/21
--- OUTSIDE RECORDS SUMMARY | 2025-08-09 14:20 | XMS_ITS | Clinical Summary ---
Author Organization [facility] it Address [address] [place] [id number] Care Team Providers Care Metalworking Specialist Name Role Phone Angel Peraza MD Primary Care Provider [phone] Surgical History Surgery Date Site/Laterality Comments HYSTERECTOMY PROCEDURE: HISTORICAL HYSTERECTOMY TYMPANOSTOMY TUBE PLACEMENT PROCEDURE: HISTORICAL PE TUBES OTHER SURGICAL HISTORY 07/06/2021 PROCEDURE: ME ARTHRODESIS POSTERIOR INTERBODY 1 NTRSPC LUMBAR; COMMENT: [...] 2007 Zoster Vaccines (1 of 2) 2007 Depression Screening 08/11/2024 COVID-19 Vaccine (2 - [...] Documents on File Type Date Recorded Patient Gum Remover Expl anation Health Care Decision (hx) 07/06/2021 EMILY CRESPO DIRECTIVE Care Teams Metalworking Specialist Relationship Specialty Start Date End Date Angel Peraza MD [address] [place] [address] PCP - General Internal Medicine 07/18/21
== END 2025-08-09 10:42 | disposition home or self-care (01) ==
LOC: HO.LAB 10:41
PROVIDERS: PCP Internal Medicine; Visit Provider Internal Medicine
DX: K21.9 Gastro-esophageal reflux disease without esophagitis (principal); E78.5 Hyperlipidemia, unspecified; E55.9 Vitamin D deficiency, unspecified; E03.9 Hypothyroidism, unspecified; I10 Essential (primary) hypertension; M25.552 Pain in left hip; M25.511 Pain in right shoulder
CPT/HCPCS: 36415; 73030; 73502; 80053; 80061; 82306; 84443

== ENCOUNTER → 2025-08-09 10:54 | Outpatient (BNV) | payer OTHER, SELFPAY | PROVIDERS: PCP Internal Medicine; Visit Provider Radiology Diagnostic Radiology | DX: M16.12 Unilateral primary osteoarthritis, left hip (principal); M19.011 Primary osteoarthritis, right shoulder | CPT/HCPCS: 73030; 73502 ==